=== PATIENT | male | born 1975 | race Caucasian/White ===

== ENCOUNTER 2019-06-05 19:34 | Outpatient (REF) | payer SELFPAY ==
[2019-06-05 20:16] LABS: Estmated Average Glucose 266; Hemoglobin A1C 10.9 % (4.0-6.0)
[2019-06-05 20:19] LABS: Alanine Aminotransferase 35 U/L (0-41); Albumin Level 4.6 g/dL (3.5-5.2); Alkaline Phosphatase 59 IU/L (40-130); Chloride 99 mmol/L (98-107); Potassium 4.4 mmol/L (3.5-5.1); Sodium 139 mmol/L (136-145)
[2019-06-05 21:09] LABS: Anion Gap 20.4 (5-19); Blood Urea Nitrogen 10 mg/dL (6-20); Calcium 9.8 mg/Dl (8.6-10.0); Carbon Dioxide 24 mmol/L (22-29); Globulin 2.8 g/dL (1.3-4.6); Glomerular Filtration Rate 91.7 mL/min (90-130); Glucose 174 mg/dL (74-109); Total Bilirubin 0.3 mg/dL (0.15-1.2); Total Protein 7.4 g/dL (6.6-8.7)
[2019-06-05 21:16] LABS: Aspartate Amino Transferase 30 U/L (0-40)
== END 2019-06-05 19:35 | disposition home or self-care (01) ==
LOC: LAB 19:34
PROVIDERS: Family Provider General Practice; PCP General Practice; Visit Provider Orthopaedic Surgery Foot and Ankle Surgery
DX: Z01.89 Encounter for other specified special examinations (principal)
CPT/HCPCS: 80053; 83036; 85025

== ENCOUNTER 2019-06-19 17:39 | Outpatient (REF) | payer SELFPAY ==
[2019-06-19 18:09] LABS: Chol HDL Ratio 6.25 mg/dL (1.0-5.00); Cholesterol 150 mg/dL (0-200); HDL Cholesterol 24 mg/dL (60-100); LDL Cholesterol Calculated 62 mg/dL (50-129); LDL HDL Ratio 2.58 RATIO (0.00-3.22); Triglycerides 318 mg/dL (0-150)
== END 2019-06-19 17:40 | disposition home or self-care (01) ==
LOC: LAB 17:39
PROVIDERS: Family Provider General Practice; PCP General Practice
DX: Z01.89 Encounter for other specified special examinations (principal)
CPT/HCPCS: 80061

== ENCOUNTER 2019-06-29 19:12 | Emergency (ER) | payer SELFPAY ==
[2019-06-29] VITALS (35 sets, daily range): BP systolic 104–120; BP diastolic 57–66; PULSE 93–114; RESP 12–22; TEMP 36.8; O2SAT 88–98; BMI 30.3
--- NOTE | 2019-06-29 19:38 | ED_ITS ---
Entered by Liliana Clark, acting as scribe for Surya Coreas DO Jun 29, 2019 19:12 HPI - Seizure General: Chief Complaint: Seizure Stated Complaint: POSSIBLE SEIZURE Time Seen by Provider: 06/29/19 19:38 Source: patient and family Mode of arrival: ambulatory History of Present Illness: HPI Narrative: 43 y/o male presents to the ED with complaint of possible seizure/syncope. states he bent over by the couch because he felt dizzy. Pt remembers falling and hitting his head. A bystander said it looked like he started convulsing while he was passed out. Pt states he woke up to his shaking him awake. Upon waking, pt felt nauseated, sweaty and had a persistent ANDRADE. Pt is a diabetic and states he has not checked his sugar since this event occurred. MD complaint: possible seizure and syncope Onset (ago): hour(s) Description of Episode: loss of consciousness -: second(s) Witnessed: Yes - by Bystander Trauma: No Place: Home Associated symptoms: Deny chest pain, chills, confusion or fever(s) Review of Systems Const: Denies: fever or chills Eyes: Denies: change in vision or blurry vision ENMT: Denies: painful swallowing, swelling of lips/tongue, bleeding gums or dental pain Card: Denies: chest pain, palpitations, irregular heart rhythm, edema, swelling of feet/ankles, shortness of breath on exertion or shortness of breath when lying down Resp: Denies: shortness of breath, productive cough, non-productive cough or wheezing GI: Denies: abdominal pain, nausea, vomiting, rectal pain, blood in stool or black tarry stool : Denies: difficulty urinating or blood in urine Musc: Denies: neck pain, back pain, redness or joint warmth Skin/Breast: Denies: rash, itching or redness Neuro: Reports: headache and seizure-like activity; Denies: dizziness, vertigo or confusion Psych: Denies: anxiety PFSH ED PFSH: Statuses (acute, chronic, etc) shown below reflect problem list status as previously entered and may not be historically accurate Social History Smoking and tobacco status: current every day smoker Physical Exam Const: GENERAL APPEARANCE: well developed ORIENTATION/CONSCIOUSNESS: Yes oriented to person, Yes oriented to place and Yes oriented to time HENMT: COMMON NORMALS: normocephalic, external ears normal and external nose normal HEAD & SCALP: normocephalic; no scalp tenderness FACE & SINUS: normal facial exam NOSE: external nose normal and no nasal discharge EXTERNAL EAR: Yes external ears normal MOUTH: tongue normal Eye: COMMON NORMALS: PERRL, EOMs intact bilaterally and conjunctivae normal EYELID: eyelids normal CONJUNCTIVA: Yes conjunctivae normal PUPIL: Yes PERRL Neck/C-Spine: COMMON NORMALS: full ROM GENERAL: No tracheal deviation CERVICAL SPINE: Yes normal cervical lordosis and No cervical spine tenderness Chest: COMMONS NORMALS: inspection of chest normal CHEST: No tenderness Resp: COMMON NORMALS: clear to auscultation bilaterally EFFORT & INSPECTION: No tachypneic, No respiratory distress, No retractions, No uses accessory muscles and No tracheal deviation AUSCULTATION: clear to auscultation bilaterally, no rhonchi, no wheezes and lung sounds not diminished Cardio: COMMON NORMALS: regular rate and regular rhythm RATE: regular rate RHYTHM: regular rhythm HEART SOUNDS: no murmurs PERIPHERAL PULSES: radial pulses present GI: INSPECTION: No abdominal distension AUSCULTATION: No hyperactive bowel sounds and No hypoactive bowel sounds PALPATION: No guarding and No rigid PERCUSSION: no dullness to percussion and no tympanic to percussion Neuro: SENSORIUM/ORIENTATION: Yes oriented to person, Yes oriented to place and Yes oriented to time Psych: COMMON NORMALS: mental status grossly normal Skin: COMMON NORMALS: no rashes or lesions noted GENERAL SKIN EXAM: no rashes or lesions noted Course ED course: 43-year-old male who had a brief episode of syncope at home. He was squatting by a couch. He may or may not have had a clonic movement striking his head. His head CT is negative. His chest x-ray is negative. His troponins are negative. His d-dimer is negative. He was mildly hypoxic while sleeping and was briefly placed on oxygen, but passed a walk study never falling below 96% on room air. His EKG showed no acute ST changes. Drug screen was negative. No cause for the syncope identified. I doubt this is a seizure. There was no prolonged postictal phase, no prolonged convulsion, no prolonged rigidity. Vital Signs: Vital signs: Vital Signs Temperature 98.3 F 06/29/19 19:32 Pulse Rate 100 06/29/19 23:06 Respiratory Rate 16 06/29/19 23:06 Blood Pressure 114/66 06/29/19 23:06 Pulse Oximetry 93 06/29/19 23:06 MDM - Seizure Lab Data: Labs: Lab Results 06/29/19 06/29/19 06/29/19 Range/Units 19:52 19:52 19:52 WBC 10.6 H (4.0-10.0) 10^3/ uL RBC 5.31 H (4.1-5.3) 10^6/u L Hgb 15.2 (11.7-16.6) g/dL Hct 46.1 (42.0-52.0) % MCV 86.8 (80-94) fL MCH 28.6 (28.0-34.0) pg MCHC 33.0 (30.0-36.0) g/dL RDW 13.2 (12.1-15.1) % Plt Count 228 (130-400) 10^3/c mm MPV 11.2 H (7.4-10.4) fL Neut % (Auto) 68.2 % Lymph % (Auto) 21.7 % Clarke % (Auto) 7.8 % Eos % (Auto) 1.5 % Baso % (Auto) 0.4 % Neut # (Auto) 7.3 (1.8-7.7) 10^3/u L Lymph # (Auto) 2.3 (0.8-4.8) 10^3/u L Clarke # (Auto) 0.8 (0.2-0.9) 10^3/u L Eos # (Auto) 0.2 (0.0-0.8) 10^3/u L Baso # (Auto) 0.0 (0.0-0.1) 10^3/u L Nucleated RBC % (a uto) 0 % Nucleated RBCs # 0.0 /100WBC D-Dimer (0-0.59) ug/mIFE U Sodium 138 (136-145) mmol/L Potassium 4.3 (3.5-5.1) mmol/L Chloride 96 L (98-107) mmol/L Carbon Dioxide 22 (22-29) mmol/L Anion Gap 24.3 H (5-19) BUN 19 (6-20) mg/dL Creatinine 1.8 H (0.7-1.2) mg/dL GFR Calculation 41.2 L (90-130) mL/min Glucose 271 H (74-109) mg/dL POC Glucose (70-110) mg/dL Calcium 11.0 H (8.5-10.5) mg/dL Phosphorus 5.5 H (2.5-4.5) mg/dL Magnesium 1.6 L (1.7-2.3) mg/dL Total Bilirubin 0.3 (0.15-1.2) mg/dL AST 35 (0-40) U/L ALT 57 H (0-41) U/L Alkaline Phosphata se 63 (40-130) IU/L Troponin T Baselin e 12 (0-15) ng/mL Troponin T 120 Min erica (0-15) ng/mL Delta Troponin T (0-10) ABS# Total Protein 8.1 (6.6-8.7) g/dL Albumin 5.1 (3.5-5.2) g/dL Globulin 3.0 (1.3-4.6) g/dL Urine Color (Yellow) Urine Appearance (CLEAR) Urine pH (5-7) Ur Specific Gravit y (1.005-1.030) Urine Protein (Negative) Urine Glucose (UA) (Normal) Urine Ketones (Negative) Urine Occult Blood (Negative) Urine Nitrate (Negative) Urine Bilirubin (NEGATIVE) Urine Urobilinogen (Negative) mg/dL Ur Leukocyte Lis ase (Negative) Urine RBC (0-2) /hpf Urine WBC (0-5) /hpf Ur Squamous Epith Cells (0-5) Urine Bacteria (NONE) Hyaline Casts Urine Mucus Urine Opiates Scre en (Negative) ng/mL Ur Barbiturates Sc reen (Negative) ng/mL Ur Phencyclidine S crn (Negative) ng/mL Ur Amphetamines Sc reen (Negative) ng/mL U Benzodiazepines Scrn (Negative) ng/mL Urine Cocaine Scre en (Negative) ng/mL U Marijuana (THC) Screen (Negative) ng/mL Ethyl Alcohol 10 (0-10) mg/dL 06/29/19 06/29/19 06/29/19 Range/Units 19:52 19:57 20:35 WBC (4.0-10.0) 10^3/ uL RBC (4.1-5.3) 10^6/u L Hgb (11.7-16.6) g/dL Hct (42.0-52.0) % MCV (80-94) fL MCH (28.0-34.0) pg MCHC (30.0-36.0) g/dL RDW (12.1-15.1) % Plt Count (130-400) 10^3/c mm MPV (7.4-10.4) fL Neut % (Auto) % Lymph % (Auto) % Clarke % (Auto) % Eos % (Auto) % Baso % (Auto) % Neut # (Auto) (1.8-7.7) 10^3/u L Lymph # (Auto) (0.8-4.8) 10^3/u L Clarke # (Auto) (0.2-0.9) 10^3/u L Eos # (Auto) (0.0-0.8) 10^3/u L Baso # (Auto) (0.0-0.1) 10^3/u L Nucleated RBC % (a uto) % Nucleated RBCs # /100WBC D-Dimer 0.39 (0-0.59) ug/mIFE U Sodium (136-145) mmol/L Potassium (3.5-5.1) mmol/L Chloride (98-107) mmol/L Carbon Dioxide (22-29) mmol/L Anion Gap (5-19) BUN (6-20) mg/dL Creatinine (0.7-1.2) mg/dL GFR Calculation (90-130) mL/min Glucose (74-109) mg/dL POC Glucose 252 (70-110) mg/dL Calcium (8.5-10.5) mg/dL Phosphorus (2.5-4.5) mg/dL Magnesium (1.7-2.3) mg/dL Total Bilirubin (0.15-1.2) mg/dL AST (0-40) U/L ALT (0-41) U/L Alkaline Phosphata se (40-130) IU/L Troponin T Baselin e (0-15) ng/mL Troponin T 120 Min erica (0-15) ng/mL Delta Troponin T (0-10) ABS# Total Protein (6.6-8.7) g/dL Albumin (3.5-5.2) g/dL Globulin (1.3-4.6) g/dL Urine Color Yellow (Yellow) Urine Appearance Clear (CLEAR) Urine pH 5 (5-7) Ur Specific Gravit y 1.020 (1.005-1.030) Urine Protein Trace (Negative) Urine Glucose (UA) 2+ (Normal) Urine Ketones Negative (Negative) Urine Occult Blood Neg (Negative) Urine Nitrate Negative (Negative) Urine Bilirubin 1+ H (NEGATIVE) Urine Urobilinogen 1 H (Negative) mg/dL Ur Leukocyte Lis ase Negative (Negative) Urine RBC Rare (0-2) /hpf Urine WBC 0-4 H (0-5) /hpf Ur Squamous Epith Cells 0-4 H (0-5) Urine Bacteria 1+ H (NONE) Hyaline Casts 0-4 H Urine Mucus 1+ Urine Opiates Scre en (Negative) ng/mL Ur Barbiturates Sc reen (Negative) ng/mL Ur Phencyclidine S crn (Negative) ng/mL Ur Amphetamines Sc reen (Negative) ng/mL U Benzodiazepines Scrn (Negative) ng/mL Urine Cocaine Scre en (Negative) ng/mL U Marijuana (THC) Screen (Negative) ng/mL Ethyl Alcohol (0-10) mg/dL 06/29/19 06/29/19 Range/Units 20:35 21:58 WBC (4.0-10.0) 10^3/ uL RBC (4.1-5.3) 10^6/u L Hgb (11.7-16.6) g/dL Hct (42.0-52.0) % MCV (80-94) fL MCH (28.0-34.0) pg MCHC (30.0-36.0) g/dL RDW (12.1-15.1) % Plt Count (130-400) 10^3/c mm MPV (7.4-10.4) fL Neut % (Auto) % Lymph % (Auto) % Clarke % (Auto) % Eos % (Auto) % Baso % (Auto) % Neut # (Auto) (1.8-7.7) 10^3/u L Lymph # (Auto) (0.8-4.8) 10^3/u L Clarke # (Auto) (0.2-0.9) 10^3/u L Eos # (Auto) (0.0-0.8) 10^3/u L Baso # (Auto) (0.0-0.1) 10^3/u L Nucleated RBC % (a uto) % Nucleated RBCs # /100WBC D-Dimer (0-0.59) ug/mIFE U Sodium (136-145) mmol/L Potassium (3.5-5.1) mmol/L Chloride (98-107) mmol/L Carbon Dioxide (22-29) mmol/L Anion Gap (5-19) BUN (6-20) mg/dL Creatinine (0.7-1.2) mg/dL GFR Calculation (90-130) mL/min Glucose (74-109) mg/dL POC Glucose (70-110) mg/dL Calcium (8.5-10.5) mg/dL Phosphorus (2.5-4.5) mg/dL Magnesium (1.7-2.3) mg/dL Total Bilirubin (0.15-1.2) mg/dL AST (0-40) U/L ALT (0-41) U/L Alkaline Phosphata se (40-130) IU/L Troponin T Baselin e (0-15) ng/mL Troponin T 120 Min erica 8.77 (0-15) ng/mL Delta Troponin T -3.23 L (0-10) ABS# Total Protein (6.6-8.7) g/dL Albumin (3.5-5.2) g/dL Globulin (1.3-4.6) g/dL Urine Color (Yellow) Urine Appearance (CLEAR) Urine pH (5-7) Ur Specific Gravit y (1.005-1.030) Urine Protein (Negative) Urine Glucose (UA) (Normal) Urine Ketones (Negative) Urine Occult Blood (Negative) Urine Nitrate (Negative) Urine Bilirubin (NEGATIVE) Urine Urobilinogen (Negative) mg/dL Ur Leukocyte Lis ase (Negative) Urine RBC (0-2) /hpf Urine WBC (0-5) /hpf Ur Squamous Epith Cells (0-5) Urine Bacteria (NONE) Hyaline Casts Urine Mucus Urine Opiates Scre en Negative (Negative) ng/mL Ur Barbiturates Sc reen Negative (Negative) ng/mL Ur Phencyclidine S crn Negative (Negative) ng/mL Ur Amphetamines Sc reen Negative (Negative) ng/mL U Benzodiazepines Scrn Negative (Negative) ng/mL Urine Cocaine Scre en Negative (Negative) ng/mL U Marijuana (THC) Screen Negative (Negative) ng/mL Ethyl Alcohol (0-10) mg/dL Discharge Plan Discharge Patient Disposition: Home, Self-Care Clinical Impression: Syncope Qualifiers: Syncope type: unspecified Qualified Code(s): R55 - Syncope and collapse Condition: Stable Prescriptions: No Action gabapentin 600 mg Tablet 1,200 mg PO BID RF: 0 Zyrtec 10 mg Tablet 10 mg PO DAILY RF: 0 glipizide 10 mg Tablet Extended Release 24hr 10 mg PO BID RF: 0 Mobic 15 mg Tablet 15 mg PO DAILY RF: 0 isosorbide mononitrate 30 mg Tablet Extended Release 24 Hr 30 mg PO DAILY RF: 0 omeprazole 40 mg Capsule,Delayed Release(Dr/Ec) 40 mg PO DAILY RF: 0 Aspir-Low 81 mg Tablet,Delayed Release (Dr/Ec) 81 mg PO DAILY RF: 0 simvastatin 40 mg Tablet 40 mg PO DAILY RF: 0 metformin 1,000 mg Tablet 1,000 mg PO BID RF: 0 lisinopril 10 mg Tablet 10 mg PO DAILY RF: 0 metoprolol tartrate 50 mg Tablet 50 mg PO BID RF: 0 hydrochlorothiazide 25 mg Tablet 25 mg PO DAILY RF: 0 Cymbalta 60 mg Capsule,Delayed Release(Dr/Ec) 120 mg PO BEDTIME RF: 0 Januvia 100 mg Tablet 100 mg PO DAILY RF: 0 melatonin 10 mg Tablet 10 mg PO BEDTIME RF: 0 Bydureon 2 mg/0.65 mL Pen Injector 2 mg SUBCUT Q7D RF: 0 Imitrex See Rx Instructions .ROUTE .COMPLEX RF: 0 Discharge Orders: Discharge Order (Routine); Ordered 06/29/19 Ordered By: Surya Coreas Referrals: Nikita Felton MD [Primary Care Provider] - Discharge Diet: Diabetic Discharge Activity: Resume usual activity Patient Instructions: Syncope (ED) Activity Restrictions/Additional Instructions: Return for repeated episodes of syncope or passing out, chest discomfort, significant shortness of breath, mental status changes, other concerning symptoms. Stop your Januvia for now, as it may be making your kidney function worse. You should have your kidney function retested in 4 to 5 days. Discharge Date/Time: 06/29/19 22:53 Coding Level of Care Code ED Plate Mounter for Wendy Weeks The documentation recorded by the sumanibEduardo morel Ashley, accurately reflects the service I personally performed and the decisions made by , Surya Coreas DO Jun 29, 2019 19:12
--- NOTE | 2019-06-29 19:47 | CTR_ITS ---
PROCEDURE INFORMATION: Exam: CT Head Without Contrast Exam date and time: 06/29/2019 7:53 PM Age: 43 years old Clinical indication: Pain; Headache not specified; Patient HX: Possible seizure; Additional info: Russell TECHNIQUE: Imaging protocol: Computed tomography of the head without contrast. Total DLP: 877.18 mGy-cm Radiation optimization: All CT scans at this facility use at least one of these dose optimization techniques: automated exposure control; mA and/or kV adjustment per patient size (includes targeted exams where dose is matched to clinical indication); or iterative reconstruction. COMPARISON: No relevant prior studies available. FINDINGS: Brain: Normal. No hemorrhage. Unremarkable white matter. No mass effect. Ventricles: Normal. No ventriculomegaly. Bones/joints: Unremarkable. No acute fracture. Sinuses: Visualized sinuses are unremarkable. No fluid levels. Mastoid air cells: Visualized mastoid air cells are well aerated. Soft tissues: Unremarkable. CT/CT head wo con* [id number] IMPRESSION: No acute intracranial abnormality. Radiation Dose CTDIVOL = (mGy): DLP = 877.18 (mGy-cm)
--- NOTE | 2019-06-29 19:47 | XRR_ITS ---
PROCEDURE INFORMATION: Exam: XR Chest, 1 View Exam date and time: 06/29/2019 7:49 PM Age: 43 years old Clinical indication: Chest pain; Patient HX: Seizure; Additional info: Russell TECHNIQUE: Imaging protocol: XR of the chest Views: 1 view. COMPARISON: CR Chest 1 [place] [id number] 12/21/2018 9:30 PM FINDINGS: Lungs: Unremarkable. No consolidation. Unchanged non-specific elevation right hemidiaphragm. Unchanged calcified granulomas. Pleural space: Unremarkable. No pleural effusion. No pneumothorax. Heart/Mediastinum: Unremarkable. No cardiomegaly. Bones/joints: No acute abnormality. XR/XR chest 1V portable [id number] IMPRESSION: No acute findings.
[2019-06-29] MEDS: sodium chloride 0.9% 1,000 ML 999 ML IV (20:00)
[2019-06-29 20:01] LABS: Basophils % 0.4 %; Eosinophils # 0.2 10^3/uL (0.0-0.8); Eosinophils % 1.5 %; Hematocrit 46.1 % (42.0-52.0); Hemoglobin 15.2 g/dL (11.7-16.6); Lymphocytes # 2.3 10^3/uL (0.8-4.8); Lymphocytes % 21.7 %; Mean Corpuscular Hemoglobin 28.6 pg (28.0-34.0); Mean Corpuscular Volume 86.8 fL (80-94); Mean Platelet Volume 11.2 fL (7.4-10.4); Monocytes # 0.8 10^3/uL (0.2-0.9); Monocytes % 7.8 %; Neutrophils # 7.3 10^3/uL (1.8-7.7); Neutrophils % 68.2 %; Nucleated Red Blood Cells % 0 %; Platelet Count 228 10^3/cmm (130-400); Red Blood Count 5.31 10^6/uL (4.1-5.3); Red Cell Distribution Width 13.2 % (12.1-15.1); White Blood Count 10.6 10^3/uL (4.0-10.0)
[2019-06-29 20:03] LABS: Glucose Point of Care 252 mg/dL (70-110)
[2019-06-29 20:17] LABS: Alanine Aminotransferase 57 U/L (0-41); Albumin Level 5.1 g/dL (3.5-5.2); Alkaline Phosphatase 63 IU/L (40-130); Anion Gap 24.3 (5-19); Aspartate Amino Transferase 35 U/L (0-40); Blood Urea Nitrogen 19 mg/dL (6-20); Carbon Dioxide 22 mmol/L (22-29); Chloride 96 mmol/L (98-107); Glomerular Filtration Rate 41.2 mL/min (90-130); Glucose 271 mg/dL (74-109); Magnesium 1.6 mg/dL (1.7-2.3); Phosphorus 5.5 mg/dL (2.5-4.5); Potassium 4.3 mmol/L (3.5-5.1); Sodium 138 mmol/L (136-145); Total Bilirubin 0.3 mg/dL (0.15-1.2); Total Protein 8.1 g/dL (6.6-8.7)
[2019-06-29 20:20] LABS: Troponin(5th) Baseline 12 ng/mL (0-15)
[2019-06-29 20:28] LABS: Alcohol Level 10 mg/dL (0-10)
[2019-06-29 20:54] LABS: D Dimer 0.39 ug/mIFEU (0-0.59)
[2019-06-29 21:18] LABS: Amphetamines Screen Urine Negative (Negative); Barbiturates Screen Urine Negative (Negative); Benzodiazepines Screen Urine Negative (Negative); Cocaine Screen Urine Negative (Negative); Opiate Screen Urine Negative (Negative); PCP Screen Urine Negative (Negative)
[2019-06-29 21:19] LABS: THC Screen Urine Negative (Negative)
[2019-06-29 21:30] LABS: Add Urine Microscopic? YES; Bacteria Urine 1+; Bilirubin Urine 1+ (NEGATIVE); Blood Urine Neg (Negative); Glucose Urine UA 2+ (Normal); Ketones Urine Negative (Negative); Leukocyte Esterase Urine Negative (Negative); Nitrate Urine Negative (Negative); Protein Urine Trace (Negative); RBC Urine RARE /hpf (0-2); Squamous Epithelial Cell Urine 0-4 (0-5); Urine Appearance Clear (CLEAR); Urine Color Yellow (Yellow); Urobilinogen Urine 1 mg/dL (Negative); WBC Urine 0-4 /hpf (0-5); pH Urine 5 (5-7)
[2019-06-29 21:31] LABS: Hyaline Casts Urine 0-4; Mucus Urine 1+
--- NOTE | 2019-06-29 21:49 | ECG_ITS ---
Measurements Intervals Gore Rate: 105 P: 52 PA: 146 QRS: -35 QRSD: 98 T: 67 QT: 312 QTc: 413 SINUS TACHYCARDIA LEFT AXIS DEVIATION [QRS AXIS < -30] Compared to ECG 12/21/2018 03:40:39 Sinus rhythm no longer present Electronically Signed On 06-30-2019 21:04:29 TREE GIRDLER by Esme Cormier M.D. [email or web address]
[2019-06-29 22:39] LABS: Troponin 5 2HR 8.77 ng/mL (0-15)
[2019-06-29 22:44] LABS: Troponin 5 2HR Delta -3.23 ABS# (0-10)
== END 2019-06-29 22:53 | disposition home or self-care (01) ==
PROVIDERS: Emergency Provider Emergency Medicine; Family Provider General Practice; PCP General Practice
DX: R55 Syncope and collapse (principal); Z79.84 Long term (current) use of oral hypoglycemic drugs; Z79.82 Long term (current) use of aspirin; F17.210 Nicotine dependence, cigarettes, uncomplicated
CPT/HCPCS: 36416; 70450; 71045; 80053; 80307; 81001; 82962; 83735; 84100; 84484; 85025; 85378; 93005; 96360; 99284; J7030

== ENCOUNTER 2019-08-20 07:59 | Emergency (ER) | payer SELFPAY ==
[2019-08-20 08:04] VITALS: BMI 30.9
--- NOTE | 2019-08-20 08:05 | ED_ITS ---
Entered by Radha Estrada, acting as scribe for Sterling Cruz DO HPI - Fever General: Chief Complaint: Shortness of Breath/Dyspnea Stated Complaint: coughing, fever ,SOB Time Seen by Provider: 08/20/19 08:05 Source: patient Mode of arrival: ambulatory Limitations: no limitations History of Present Illness: HPI Narrative: 43 yo male presents with fever, cough and congestion. pt states this started a few days ago. pt states he has had blood with vomiting. pt denies any other symptoms at this time. MD elicited complaint: fever Onset (ago): day(s) (yesterday) Exacerbating factors: exertion Relieving factors: nothing Associated symptoms: Reports chills, diarrhea, night sweats, short of breath and other (coughing up blood) Treatments prior to arrival fever: none Review of Systems General: Reports: 10 or more systems reviewed and unremarkable except in HPI and below Const: Reports: fever, chills, body aches, fatigue and night sweats Resp: Reports: shortness of breath and coughing up blood (Patient having small streaks and spots of blood in the sputum no large amounts of blood.) GI: Reports: diarrhea Musc: Denies: joint warmth PFSH ED PFSH: Social History Smoking and tobacco status: current every day smoker Physical Exam Const: COMMON NORMALS: average body habitus, oriented x3 and alert GENERAL APPEARANCE: cooperative, comfortable, well kempt and well developed NUTRITIONAL APPEARANCE: obese ORIENTATION/CONSCIOUSNESS: Yes awake, Yes oriented to person and Yes oriented to place HENMT: COMMON NORMALS: normocephalic, head/scalp atraumatic, EAC's normal, TM's normal bilaterally, external nose normal, moist oral mucous membranes and oropharynx normal HEAD & SCALP: normocephalic and atraumatic NOSE: external nose normal EXTERNAL AUDITORY CANAL: EAC's normal TYMPANIC MEMBRANE: TM's normal bilaterally MOUTH: oral and palatal mucosa normal, lip normal and tongue normal THROAT: posterior oropharynx normal and tonsils normal Eye: COMMON NORMALS: PERRL, EOMs intact bilaterally, conjunctivae normal and no scleral icterus CONJUNCTIVA: Yes conjunctivae normal PUPIL: Yes PERRL Neck/C-Spine: COMMON NORMALS: full ROM, no lymphadenopathy, supple, no meningeal signs and thyroid normal THYROID: thyroid normal and asymmetrical Lymph: LYMPHATIC: no lymphadenopathy noted Cardio: RATE: tachycardic HEART SOUNDS: no murmurs GI: COMMON NORMALS: normal to inspection, nondistended, normoactive bowel sounds, soft to palpation and no hepatosplenomegaly PALPATION: Yes soft and Yes no hepatosplenomegaly : COMMON NORMALS: Yes no CVA tenderness BLADDER/KIDNEY EXAM: Yes no CVA tenderness Back/Pelvis: COMMON NORMALS: no CVA tenderness LUMBAR SPINE/LOWER BACK: Yes normal to inspection Extremity: COMMON NORMALS: no clubbing, cyanosis or edema, no calf tenderness and no pedal edema Neuro: COMMON NORMALS: oriented x3 SENSORIUM/ORIENTATION: Yes alert, Yes oriented to person and Yes oriented to place MENINGEAL SIGNS: Yes no meningeal signs Psych: APPEARANCE: Yes well kempt Skin: COMMON NORMALS: no rashes or lesions noted and skin turgor normal GENERAL SKIN EXAM: no rashes or lesions noted and turgor normal Course Vital Signs: Vital signs: Vital Signs Temperature 98.9 F 08/20/19 08:07 Pulse Rate 78 08/20/19 09:09 Respiratory Rate 16 08/20/19 09:09 Blood Pressure 133/90 08/20/19 09:09 Pulse Oximetry 95 08/20/19 09:09 MDM - Fever MDM Narrative: Medical decision making narrative: Patient sats remained good during the visit. He was initially a little bit tachycardic quite anxious when he first arrived that resolved. He is afebrile. He is not tachypneic or hypoxic. He did relate that he was previously diagnosed with a pulmonary embolism in the past but states he is never had any known DVTs. Additionally he denies ever being on any anticoagulants. He tells me that after [place] was evaluated [place] he was discharged home on a baby aspirin daily and no other anticoagulants. It would seem based on his history that may have evaluated him for a PE but he was did not have one he is not currently listing any anticoagulants in his medication list. He is well- appearing at this time. We will go ahead and discharge him home and asked the patient to self quarantine for the next 14 days if he has any change of symptoms she should return. He should specifically watch for increasing difficulty breathing worsening of cough and fever. Lab Data: Labs: Lab Results 08/20/19 08/20/19 08/20/19 Range/Units 08:22 08:22 08:28 WBC 11.6 H (4.0-10.0) 10^3/ uL RBC 5.15 (4.1-5.3) 10^6/u L Hgb 15.5 (11.7-16.6) g/dL Hct 46.1 (42.0-52.0) % MCV 89.5 (80-94) fL MCH 30.1 (28.0-34.0) pg MCHC 33.6 (30.0-36.0) g/dL RDW 12.8 (12.1-15.1) % Plt Count 190 (130-400) 10^3/c mm MPV 11.4 H (7.4-10.4) fL Neut % (Auto) 62.6 % Lymph % (Auto) 22.5 % Granite % (Auto) 10.7 % Eos % (Auto) 3.2 % Baso % (Auto) 0.8 % Neut # (Auto) 7.2 (1.8-7.7) 10^3/u L Lymph # (Auto) 2.6 (0.8-4.8) 10^3/u L Granite # (Auto) 1.2 H (0.2-0.9) 10^3/u L Eos # (Auto) 0.4 (0.0-0.8) 10^3/u L Baso # (Auto) 0.1 (0.0-0.1) 10^3/u L Nucleated RBC % (a uto) 0 % Nucleated RBCs # 0.0 /100WBC Sodium 131 L (136-145) mmol/L Potassium 4.2 (3.5-5.1) mmol/L Chloride 94 L (98-107) mmol/L Carbon Dioxide 20 L (22-29) mmol/L Anion Gap 21.2 H (5-19) BUN 14 (6-20) mg/dL Creatinine 0.8 (0.7-1.2) mg/dL GFR Calculation 105.0 (90-130) mL/min Glucose 350 H (65-115) mg/dL Calculated Osmolal ity 282 L (285-295) mOsm/k g Calcium 10.5 (8.5-10.5) mg/dL Total Bilirubin 0.3 (0.15-1.2) mg/dL AST 33 (0-40) U/L ALT 43 H (0-41) U/L Alkaline Phosphata se 74 (40-130) IU/L Total Protein 7.4 (6.6-8.7) g/dL Albumin 4.3 (3.5-5.2) g/dL Globulin 3.1 (1.3-4.6) g/dL Influenza Type A A g Negative (Negative) POC Influenza B Ag Negative (Negative) Discharge Plan Discharge Patient Disposition: Home, Self-Care Clinical Impression: Bronchitis Condition: Stable Prescriptions: New albuterol sulfate 90 mcg/actuation HFA aerosol inhaler 2 inh INHALATION Q4H PRN (Reason: shortness of breath or wheezing) Qty: 18 RF: 0 No Action gabapentin 600 mg Tablet 1,200 mg PO BID RF: 0 Zyrtec 10 mg Tablet 10 mg PO DAILY RF: 0 glipizide 10 mg Tablet Extended Release 24hr 10 mg PO BID RF: 0 Mobic 15 mg Tablet 15 mg PO DAILY RF: 0 isosorbide mononitrate 30 mg Tablet Extended Release 24 Hr 30 mg PO DAILY RF: 0 omeprazole 40 mg Capsule,Delayed Release(Dr/Ec) 40 mg PO DAILY RF: 0 Aspir-Low 81 mg Tablet,Delayed Release (Dr/Ec) 81 mg PO DAILY RF: 0 simvastatin 40 mg Tablet 40 mg PO DAILY RF: 0 metformin 1,000 mg Tablet 1,000 mg PO BID RF: 0 lisinopril 10 mg Tablet 10 mg PO DAILY RF: 0 metoprolol tartrate 50 mg Tablet 50 mg PO BID RF: 0 hydrochlorothiazide 25 mg Tablet 25 mg PO DAILY RF: 0 Cymbalta 60 mg Capsule,Delayed Release(Dr/Ec) 120 mg PO BEDTIME RF: 0 Januvia 100 mg Tablet 100 mg PO DAILY RF: 0 melatonin 10 mg Tablet 10 mg PO BEDTIME RF: 0 Bydureon 2 mg/0.65 mL Pen Injector 2 mg SUBCUT Q7D RF: 0 Imitrex See Rx Instructions .ROUTE .COMPLEX RF: 0 Discharge Orders: Discharge Order (Routine); Ordered 08/20/19 Ordered By: Sterling Cruz Referrals: Nikita Felton MD [Primary Care Provider] - Discharge Diet: Usual diet Discharge Activity: Resume usual activity Activity Restrictions/Additional Instructions: Recommend that you self quarantine for 14 days. If you have worsening symptoms return to the emergency room watch for symptoms such as extreme shortness of breath fever and cough. Interventions: ED Discharge Assessment Last Done: 08/20/19 09:09 Discharge Date/Time: 08/20/19 09:10 Coding Level of Care Code ED .Net Architect for Chg Fwd Exam Comprehensive The documentation recorded by the Sean dennis Bridget Annette, accurately reflects the service I personally performed and the decisions made by Nancy anderson Curtis L, Aug 20, 2019 07:59
[2019-08-20 08:07] VITALS: BP 118/99; PULSE 123; RESP 18; TEMP 37.2; O2SAT 97
--- NOTE | 2019-08-20 08:12 | XR_ITS ---
WS: [id number] PORTABLE CHEST HISTORY: dyspnea/cough COMPARISON: 06/29/2019 Lungs are clear and well expanded. Very slight elevation of the RIGHT hemidiaphragm is stable. No ple ural effusion or pneumothorax. Cardiac size: Normal. Mediastinum/Aorta: Normal mediastinum. No osseous abnormality seen. XR/XR chest 1V portable [id number] IMPRESSION: Unremarkable portable chest.
[2019-08-20 08:29] LABS: Basophils # 0.1 10^3/uL (0.0-0.1); Basophils % 0.8 %; Eosinophils # 0.4 10^3/uL (0.0-0.8); Eosinophils % 3.2 %; Hematocrit 46.1 % (42.0-52.0); Hemoglobin 15.5 g/dL (11.7-16.6); Lymphocytes # 2.6 10^3/uL (0.8-4.8); Lymphocytes % 22.5 %; Mean Corpuscular HGB Conc 33.6 g/dL (30.0-36.0); Mean Corpuscular Hemoglobin 30.1 pg (28.0-34.0); Mean Corpuscular Volume 89.5 fL (80-94); Mean Platelet Volume 11.4 fL (7.4-10.4); Monocytes # 1.2 10^3/uL (0.2-0.9); Monocytes % 10.7 %; Neutrophils # 7.2 10^3/uL (1.8-7.7); Neutrophils % 62.6 %; Nucleated Red Blood Cells % 0 %; Platelet Count 190 10^3/cmm (130-400); Red Blood Count 5.15 10^6/uL (4.1-5.3); Red Cell Distribution Width 12.8 % (12.1-15.1); White Blood Count 11.6 10^3/uL (4.0-10.0)
[2019-08-20 08:46] LABS: Influenza A by IFA Negative (Negative); Influenza B by IFA Negative (Negative)
[2019-08-20 09:09] VITALS: BP 133/90; PULSE 78; RESP 16; O2SAT 95
[2019-08-20 09:10] LABS: Albumin Level 4.3 g/dL (3.5-5.2); Alkaline Phosphatase 74 IU/L (40-130); Anion Gap 21.2 (5-19); Blood Urea Nitrogen 14 mg/dL (6-20); Calcium 10.5 mg/dL (8.5-10.5); Carbon Dioxide 20 mmol/L (22-29); Chloride 94 mmol/L (98-107); Creatinine Clr Calc Pharmacy 150.9627; Globulin 3.1 g/dL (1.3-4.6); Glucose 350 mg/dL (65-115); Osmolality Calculated 282 mOsm/kg (285-295); Potassium 4.2 mmol/L (3.5-5.1); Sodium 131 mmol/L (136-145); Total Bilirubin 0.3 mg/dL (0.15-1.2); Total Protein 7.4 g/dL (6.6-8.7)
[2019-08-20 09:11] LABS: Alanine Aminotransferase 43 U/L (0-41); Aspartate Amino Transferase 33 U/L (0-40)
== END 2019-08-20 09:10 | disposition home or self-care (01) ==
PROVIDERS: Emergency Provider Family Medicine; Family Provider General Practice; PCP General Practice
DX: J40 Bronchitis, not specified as acute or chronic (principal); F17.200 Nicotine dependence, unspecified, uncomplicated
CPT/HCPCS: 12345; 36415; 71045; 80053; 85025; 87804; 99282; 99283

== ENCOUNTER 2020-12-28 15:53 | Emergency (ER) | payer MEDICAID, SELFPAY ==
[2020-12-28] VITALS (7 sets, daily range): BP systolic 66–99; BP diastolic 43–58; PULSE 87–101; RESP 17–18; TEMP 36.8; O2SAT 94–97; BMI 31.1
--- NOTE | 2020-12-28 16:06 | ECG_ITS ---
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
--- NOTE | 2020-12-28 16:06 | XR_ITS ---
WS: [id number] Portable AP upright chest, 12/28/2020 Clinical Data: syncopal episode Comparison: Portable chest, 08/20/2019. Findings: No nodules, masses or effusions are seen. The heart is normal. The pulmonary vascularity is not increased. No pneumonia or pneumothorax is seen. There are decorative items in the regions of lenard th areola. Monitor leads are on the chest wall. XR/XR chest 1V portable [id number] Impression: Negative chest.
--- NOTE | 2020-12-28 16:06 | ED_ITS ---
Documented by User: DANA Guerrero 12/29/20 07:08 HPI - Syncope General: Chief Complaint: Syncope Stated Complaint: SYNCOPAL, DIZZY Time Seen by Provider: 12/28/20 16:03 History of Present Illness: HPI narrative: Patient is a 45-year-old male comes to the ED via EMS with syncopal episode. Patient says he has had 2 other syncopal episodes in the past year and a half. Patient says that he just been outside on his riding lawnmower mowing his grass. He says he came in the house when he was walking he started feeling lightheaded and dizzy. He then leaned over and put his arm on the table to support himself and woke up on the floor. He has no idea how long he was out. He thinks he was possibly out for maybe an hour. He describes having a lightheaded and dizzy feeling since syncopal episode. He says this episode is just like his past syncopal episode and he says his blood pressure was low last time and he needed IV fluids to get his blood pressure back up. He has not had any recent change in medications and says that he took his normal blood pressure medications in the morning like usual. He did not eat anything this morning or before the syncopal episode. He denies any headache, head pain, neck pain, chest pain, shortness of breath, abdominal pain or nausea. His blood sugar was checked and it was at 124. He complains of no other symptoms. Associated symptoms: Reports lightheadedness; Deny abdominal pain, chest pain, fever(s), headache(s) or nausea Review of Systems Const: Denies: fever(s), chills or fatigue Eyes: Denies: change in vision or eye discomfort ENMT: Denies: throat pain, odynophagia, nasal discharge or nasal congestion Card: Reports: lightheadedness and syncope; Denies: chest pain, palpitations, edema, swelling of feet/ankles, dyspnea on exertion or orthopnea Resp: Denies: dyspnea, productive cough or non-productive cough GI: Denies: abdominal pain, nausea, vomiting, diarrhea, constipation or jw tochezia : Denies: flank pain, difficulty urinating, dysuria or hematuria Musc: Denies: neck pain, back pain or extremity swelling Skin/Breast: Denies: rash or new lesions Neuro: Reports: dizziness; Denies: headache(s), numbness in extremities or weakness in extremities PFSH ED PFSH: Social History Smoking and tobacco status: current every day smoker Physical Exam Const: COMMON NORMALS: no acute distress, patient oriented x3 and alert GENERAL APPEARANCE: cooperative and comfortable HENMT: COMMON NORMALS: normocephalic and atraumatic HEAD & SCALP: n ormocephalic and atraumatic; no Low's sign and no raccoon eyes MOUTH: Normal oral and palatal mucosa present THROAT: posterior oropharynx normal and uvula midline Eye: COMMON NORMALS: Equal, round and reactive pupils present, EOMs intact bi laterally and conjunctivae normal CONJUNCTIVA: Yes conjunctivae normal PUPIL: Yes Equal, round and reactive pupils present Neck/C-Spine: COMMON NORMALS: supple GENERAL: Yes normal visual inspection CERVICAL SPINE: Yes cervical ROM normal, No pain with cervical ROM, No Cervical spine tenderness, No Paracervical muscle tenderness and No Trapezius muscle tenderness Resp: COMMON NORMALS: normal respiratory effort, No retractions, No use of accessory muscles and clear to auscultation bilaterally AUSCULTATION: clear to auscultation bilaterally Cardio: COMMON NORMALS: regular rate, regular rhythm, S1 normal heart sound present, S2 normal heart sound present, No gallops present (Cardio), No clicks present (Cardio), No murmurs present (Cardio) and Peripheral pulses 2+ throughout RATE: regular rate RHYTHM: regular rhythm HEART SOUNDS: S1 normal heart sound present and S2 normal heart sound present PERIPHERAL PULSES: Peripheral pulses 2+ throughout GI: COMMON NORMALS: Normal to inspection, nondistended, normoactive bowel sounds present, Soft to palpation, non-tender and no masses PALPATION: Yes Soft to palpation : COMMON NORMALS: Yes no CVA tenderness BLADDER/KIDNEY EXAM: Yes no CVA tenderness Back/Pelvis: COMMON NORMALS: no CVA tenderness Extremity: COMMON NORMALS: normal to inspection Neuro: COMMON NORMALS: patient oriented x3, CN's II-XII intact bilaterally, moves all extremities, no focal motor deficits and no sensory deficits noted SENSORIUM/ORIENTATION: Yes alert SENSORY EXAM: Yes extremities (intact) MOTOR EXAM: 5/5 motor strength present throughout Skin: GENERAL SKIN EXAM: dry skin Course Vital Signs: Vital signs: Vital Signs Temperature 98.3 F 12/28/20 16:13 Pulse Rate 98 12/28/20 19:30 Respiratory Rate 18 12/28/20 19:30 Blood Pressure 90/57 12/28/20 19:30 Pulse Oximetry 97 12/28/20 19:30 MDM - Syncope Lab Data: Attestation: I reviewed the patient's lab results. Labs: Lab Results 12/28/20 12/28/20 12/28/20 Range/Units 16:17 16:17 16:17 WBC 13.0 H (4.0-10.0) 10^3/ uL RBC 5.57 H (4.1-5.3) 10^6/u L Hgb 16.5 (11.7-16.6) g/dL Hct 50.6 (42.0-52.0) % MCV 90.8 (80-94) fL MCH 29.6 (28.0-34.0) pg MCHC 32.6 (30.0-36.0) g/dL RDW 13.2 (12.1-15.1) % Plt Count 246 (130-400) 10^3/c mm MPV 11.4 H (7.4-10.4) fL Neut % (Auto) 62.2 % Lymph % (Auto) 25.4 % Montgomery % (Auto) 8.7 % Eos % (Auto) 2.8 % Baso % (Auto) 0.5 % Neut # (Auto) 8.08 H (1.8-7.7) 10^3/u L Lymph # (Auto) 3.3 (0.8-4.8) 10^3/u L Montgomery # (Auto) 1.1 H (0.2-0.9) 10^3/u L Eos # (Auto) 0.4 (0.0-0.8) 10^3/u L Baso # (Auto) 0.1 (0.0-0.1) 10^3/u L Nucleated RBC % (a uto) 0 % Nucleated RBCs # 0.0 /100WBC Sodium 141 (136-145) mmol/L Potassium 5.0 (3.5-5.1) mmol/L Chloride 101 (98-107) mmol/L Carbon Dioxide 26 (22-29) mmol/L Anion Gap 19.0 (5-19) BUN 15 (6-20) mg/dL Creatinine 1.8 H (0.7-1.2) mg/dL GFR Calculation 40.8 L (90-130) mL/min Glucose 112 (65-115) mg/dL Calculated Osmolal ity 294 (285-295) mOsm/k g Calcium 9.6 (8.5-10.5) mg/dL Total Bilirubin 0.4 (0.15-1.2) mg/dL AST 30 (0-40) U/L ALT 32 (0-41) U/L Alkaline Phosphata se 72 (40-130) IU/L Troponin T Baselin e 14 (0-15) ng/L Troponin T 120 Min ewiiaapaayp (0-15) ng/L Delta Troponin T (0-10) ABS# Total Protein 6.7 (6.6-8.7) g/dL Albumin 4.6 (3.5-5.2) g/dL Globulin 2.1 (1.3-4.6) g/dL 12/28/20 Range/Units 18:42 WBC (4.0-10.0) 10^3/ uL RBC (4.1-5.3) 10^6/u L Hgb (11.7-16.6) g/dL Hct (42.0-52.0) % MCV (80-94) fL MCH (28.0-34.0) pg MCHC (30.0-36.0) g/dL RDW (12.1-15.1) % Plt Count (130-400) 10^3/c mm MPV (7.4-10.4) fL Neut % (Auto) % Lymph % (Auto) % Montgomery % (Auto) % Eos % (Auto) % Baso % (Auto) % Neut # (Auto) (1.8-7.7) 10^3/u L Lymph # (Auto) (0.8-4.8) 10^3/u L [place] # (Auto) (0.2-0.9) 10^3/u L Eos # (Auto) (0.0-0.8) 10^3/u L Baso # (Auto) (0.0-0.1) 10^3/u L Nucleated RBC % (a uto) % Nucleated RBCs # /100WBC Sodium (136-145) mmol/L Potassium (3.5-5.1) mmol/L Chloride (98-107) mmol/L Carbon Dioxide (22-29) mmol/L Anion Gap (5-19) BUN (6-20) mg/dL Creatinine (0.7-1.2) mg/dL GFR Calculation (90-130) mL/min Glucose (65-115) mg/dL Calculated Osmolal ity (285-295) mOsm/k g Calcium (8.5-10.5) mg/dL Total Bilirubin (0.15-1.2) mg/dL AST (0-40) U/L ALT (0-41) U/L Alkaline Phosphata se (40-130) IU/L Troponin T Baselin e (0-15) ng/L Troponin T 120 Min ewiiaapaayp 9.43 (0-15) ng/L Delta Troponin T -4.57 L (0-10) ABS# Total Protein (6.6-8.7) g/dL Albumin (3.5-5.2) g/dL Globulin (1.3-4.6) g/dL Imaging Data^: CXR: Attestation: I personally reviewed and interpreted this imaging study as follows: Radiologist's impression: [address] [address] XRay Report Signed Patient: Panda Gonzalez Unit #: [id number] : 1975 Acct#:O [id number] Age/Sex: 45 / M ADM Date: 12/28/20 Loc: ER Room/Bed: Attending Dr: Ordering Provider/Ordering MD: Nikita Hopper Date of Service: 12/28/20 Procedure(s): XR chest 1V portable [id number] Accession Number(s): [id number] Report Number: [id number] WS: [id number] Portable AP upright chest, 12/28/2020 Clinical Data: syncopal episode Comparison: Portable chest, 08/20/2019. Findings: No nodules, masses or effusions are seen. The heart is normal. The pulmonary vascularity is not increased. No pneumonia or pneumothorax is seen. There are decorative items in the regions of both areola. Monitor leads are on the chest wall. XR/XR chest 1V portable [id number] Impression: Negative chest. Dictated By: Kirstin Avelar MD Signed By: Kirstin Avelar MD Signed Date/Time: 12/28/201628 DD/ 27 Discharge Plan Discharge Patient Disposition: Home Clinical Impression: Acute hypotension Episode of syncope Qualifiers: Syncope type: unspecified Qualified Code(s): R55 - Syncope and collapse Condition: Stable Prescriptions: No Action Humulin R Regular U-100 Insuln 100 unit/mL solution 60 unit SUBCUT BID RF: 0 rosuvastatin [Crestor] 40 mg tablet 40 mg PO DAILY RF: 0 azithromycin 250 mg tablet 250 mg PO DAILY 5 Days Qty: 6 RF: 0 gabapentin 600 mg Tablet 1,200 mg PO BID RF: 0 Zyrtec 10 mg Tablet 10 mg PO DAILY RF: 0 Mobic 15 mg Tablet 15 mg PO DAILY RF: 0 omeprazole 40 mg Capsule,Delayed Release(Dr/Ec) 40 mg PO DAILY RF: 0 Aspir-Low 81 mg Tablet,Delayed Release (Dr/Ec) 81 mg PO DAILY RF: 0 metformin 1,000 mg Tablet 1,000 mg PO BID RF: 0 lisinopril 10 mg Tablet 10 mg PO DAILY RF: 0 metoprolol tartrate 50 mg Tablet 50 mg PO BID RF: 0 hydrochlorothiazide 25 mg Tablet 25 mg PO DAILY RF: 0 Cymbalta 60 mg Capsule,Delayed Release(Dr/Ec) 120 mg PO BEDTIME RF: 0 melatonin 10 mg Tablet 10 mg PO BEDTIME RF: 0 Imitrex See Rx Instructions .ROUTE .COMPLEX RF: 0 Discharge Orders: Discharge ED (Routine); Ordered 12/28/20 Ordered By: Swetha Smith Referrals: Nikita Felton MD [Primary Care Provider] - Patient Instructions: Syncope (ED), Hypotension (ED) Activity Restrictions/Additional Instructions: As we discussed continue to monitor your blood pressure at home. Do not take morning blood pressure medications if blood pressure remains low. Please follow-up with primary care as scheduled. You need to return to the emergency department for any further episodes of syncope, lightheadedness, dizziness, chest pain, shortness of breath, difficulty breathing, or any other concerns you may have. Sign Out Sign Out Data: Patient Sign Out occurred on 12/28/20 at 17:15. Patient's care was discussed, and care was transferred from to DANA Ocasio. Coding Level of Care Code ED Commercial Real Estate Broker for Chg Fwd Exam Comprehensive Documented by User: DANA Ocasio 12/28/20 19:10 HPI - Syncope General: Chief Complaint: Syncope Stated Complaint: SYNCOPAL, DIZZY Time Seen by Provider: 12/28/20 16:03 [facility] ED PFSH: Social History Smoking and tobacco status: current every day smoker Course Vital Signs: Vital signs: Vital Signs Temperature 98.3 F 12/28/20 16:13 Pulse Rate 98 12/28/20 19:30 Respiratory Rate 18 12/28/20 19:30 Blood Pressure 90/57 12/28/20 19:30 Pulse Oximetry 97 12/28/20 19:30 MDM - Syncope MDM Narrative: Medical decision making narrative: I assumed care of patient from Nikita Hopper PA-C. I agree with his HPI. Upon re-examination patient's BP continues to run low. He does not complain of feeling lightheaded or dizzy. He has no complaints of chest pain or shortness of breath. He is not tachycardic. No signs or symptoms of infection. EKG showing no ischemic changes. His initial troponin is normal. Creatinine is elevated at 1.8. He has received 1 L of fluids so far. Second liter running. He took his lisinopril/hctz and metoprolol like normal this morning. No changes in meds. States his BP normally runs 120s/80s. After 2L of fluids pts BP still 80s/50s. He was able to ambulate around the emergency department without lightheadedness or dizziness. He states he feels completely normal. Still does not endorse chest pain or shortness of breath. Repeat EKG without changes from his initial. Discussed with patient keeping him overnight as an observation but patient states he would like to go home. He states he does have a blood pressure cuff at home and will continue to monitor pressures. He knows not to take his morning blood pressure medications if pressures are still running low. He has already scheduled a follow-up appointment with PCP this week. Patient recommended to come back to the ER for complaints of lightheadedness, dizziness, another syncopal episodes, chest pain, shortness of breath, or difficulty breathing. Lab Data: Labs: Lab Results 12/28/20 12/28/20 12/28/20 Range/Units 16:17 16:17 16:17 WBC 13.0 H (4.0-10.0) 10^3/ uL RBC 5.57 H (4.1-5.3) 10^6/u L Hgb 16.5 (11.7-16.6) g/dL Hct 50.6 (42.0-52.0) % MCV 90.8 (80-94) fL MCH 29.6 (28.0-34.0) pg MCHC 32.6 (30.0-36.0) g/dL RDW 13.2 (12.1-15.1) % Plt Count 246 (130-400) 10^3/c mm MPV 11.4 H (7.4-10.4) fL Neut % (Auto) 62.2 % Lymph % (Auto) 25.4 % [place] % (Auto) 8.7 % Eos % (Auto) 2.8 % Baso % (Auto) 0.5 % Neut # (Auto) 8.08 H (1.8-7.7) 10^3/u L Lymph # (Auto) 3.3 (0.8-4.8) 10^3/u L [place] # (Auto) 1.1 H (0.2-0.9) 10^3/u L Eos # (Auto) 0.4 (0.0-0.8) 10^3/u L Baso # (Auto) 0.1 (0.0-0.1) 10^3/u L Nucleated RBC % (a uto) 0 % Nucleated RBCs # 0.0 /100WBC Sodium 141 (136-145) mmol/L Potassium 5.0 (3.5-5.1) mmol/L Chloride 101 (98-107) mmol/L Carbon Dioxide 26 (22-29) mmol/L Anion Gap 19.0 (5-19) BUN 15 (6-20) mg/dL Creatinine 1.8 H (0.7-1.2) mg/dL GFR Calculation 40.8 L (90-130) mL/min Glucose 112 (65-115) mg/dL Calculated Osmolal ity 294 (285-295) mOsm/k g Calcium 9.6 (8.5-10.5) mg/dL Total Bilirubin 0.4 (0.15-1.2) mg/dL AST 30 (0-40) U/L ALT 32 (0-41) U/L Alkaline Phosphata se 72 (40-130) IU/L Troponin T Baselin e 14 (0-15) ng/L Troponin T 120 Min ewiiaapaayp (0-15) ng/L Delta Troponin T (0-10) ABS# Total Protein 6.7 (6.6-8.7) g/dL Albumin 4.6 (3.5-5.2) g/dL Globulin 2.1 (1.3-4.6) g/dL 12/28/20 Range/Units 18:42 WBC (4.0-10.0) 10^3/ uL RBC (4.1-5.3) 10^6/u L Hgb (11.7-16.6) g/dL Hct (42.0-52.0) % MCV (80-94) fL MCH (28.0-34.0) pg MCHC (30.0-36.0) g/dL RDW (12.1-15.1) % Plt Count (130-400) 10^3/c mm MPV (7.4-10.4) fL Neut % (Auto) % Lymph % (Auto) % Montgomery % (Auto) % Eos % (Auto) % Baso % (Auto) % Neut # (Auto) (1.8-7.7) 10^3/u L Lymph # (Auto) (0.8-4.8) 10^3/u L Montgomery # (Auto) (0.2-0.9) 10^3/u L Eos # (Auto) (0.0-0.8) 10^3/u L Baso # (Auto) (0.0-0.1) 10^3/u L Nucleated RBC % (a uto) % Nucleated RBCs # /100WBC Sodium (136-145) mmol/L Potassium (3.5-5.1) mmol/L Chloride (98-107) mmol/L Carbon Dioxide (22-29) mmol/L Anion Gap (5-19) BUN (6-20) mg/dL Creatinine (0.7-1.2) mg/dL GFR Calculation (90-130) mL/min Glucose (65-115) mg/dL Calculated Osmolal ity (285-295) mOsm/k g Calcium (8.5-10.5) mg/dL Total Bilirubin (0.15-1.2) mg/dL AST (0-40) U/L ALT (0-41) U/L Alkaline Phosphata se (40-130) IU/L Troponin T Baselin e (0-15) ng/L Troponin T 120 Min ewiiaapaayp 9.43 (0-15) ng/L Delta Troponin T -4.57 L (0-10) ABS# Total Protein (6.6-8.7) g/dL Albumin (3.5-5.2) g/dL Globulin (1.3-4.6) g/dL Imaging Data^: CT Head: Radiologist's impression: [address] [address] [address] Scan Report Signed Patient: Panda Gonzalez Unit #: [id number] : 1975 Age/Sex: 45 / M ADM Date: 12/28/20 Loc: ER Room/Bed: Attending Dr: Ordering Provider/Ordering MD: Nikita Hopper Date of Service: 12/28/20 Procedure(s): CT head wo con* [id number] Accession Number(s): [id number] Report Number: [id number] PROCEDURE INFORMATION: Exam: CT Head Without Contrast Exam date and time: 12/28/2020 4:15 PM Age: 45 years old Clinical indication: Dizziness and syncope and collapse; Additional info: Syncopal episode TECHNIQUE: Imaging protocol: Computed tomography of the head without contrast. Radiation optimization: All CT scans at this facility use at least one of these dose optimization techniques: automated exposure control; mA and/or kV adjustment per patient size (includes targeted exams where dose is matched to clinical indication); or iterative reconstruction. COMPARISON: CT head wo con* [id number] 06/29/2019 8:18 PM RADIATION DOSE METRICS: Total DLP (mGy-cm): 984.44 FINDINGS: Brain: Normal. No hemorrhage. Unremarkable white matter. No mass effect. Cerebral ventricles: No ventriculomegaly. Paranasal sinuses: Visualized sinuses are unremarkable. No fluid levels. Mastoid air cells: Visualized mastoid air cells are well aerated. Bones/joints: Unremarkable. No acute fracture. Soft tissues: Unremarkable. CT/CT head wo con* [id number] IMPRESSION: No acute intracranial abnormality. Radiation Dose CTDIVOL = (mGy): DLP = 984.44 (mGy-cm) Dictated By: Greg Escoto DO Signed By: Greg Escoto DO Signed Date/Time: 12/28/201710 DD/ 08 Discharge Plan Discharge Patient Disposition: Home Clinical Impression: Acute hypotension Episode of syncope Qualifiers: Syncope type: unspecified Qualified Code(s): R55 - Syncope and collapse Condition: Stable Prescriptions: No Action Humulin R Regular U-100 Insuln 100 unit/mL solution 60 unit SUBCUT BID RF: 0 rosuvastatin [Crestor] 40 mg tablet 40 mg PO DAILY RF: 0 azithromycin 250 mg tablet 250 mg PO DAILY 5 Days Qty: 6 RF: 0 gabapentin 600 mg Tablet 1,200 mg PO BID RF: 0 Zyrtec 10 mg Tablet 10 mg PO DAILY RF: 0 Mobic 15 mg Tablet 15 mg PO DAILY RF: 0 omeprazole 40 mg Capsule,Delayed Release(Dr/Ec) 40 mg PO DAILY RF: 0 Aspir-Low 81 mg Tablet,Delayed Release (Dr/Ec) 81 mg PO DAILY RF: 0 metformin 1,000 mg Tablet 1,000 mg PO BID RF: 0 lisinopril 10 mg Tablet 10 mg PO DAILY RF: 0 metoprolol tartrate 50 mg Tablet 50 mg PO BID RF: 0 hydrochlorothiazide 25 mg Tablet 25 mg PO DAILY RF: 0 Cymbalta 60 mg Capsule,Delayed Release(Dr/Ec) 120 mg PO BEDTIME RF: 0 melatonin 10 mg Tablet 10 mg PO BEDTIME RF: 0 Imitrex See Rx Instructions .ROUTE .COMPLEX RF: 0 Discharge Orders: Discharge ED (Routine); Ordered 12/28/20 Ordered By: Swetha Smith Referrals: Nikita Felton MD [Primary Care Provider] - Patient Instructions: Syncope (ED), Hypotension (ED) Activity Restrictions/Additional Instructions: As we discussed continue to monitor your blood pressure at home. Do not take morning blood pressure medications if blood pressure remains low. Please follow-up with primary care as scheduled. You need to return to the emergency department for any further episodes of syncope, lightheadedness, dizziness, chest pain, shortness of breath, difficulty breathing, or any other concerns you may have. Sign Out Sign Out Data: Patient Sign Out occurred on 12/28/20 at 17:15. Patient's care was discussed, and care was transferred from to DANA Ocasio. Coding Level of Care Code ED Commercial Real Estate Broker for Felag Fwd Exam Comprehensive
--- NOTE | 2020-12-28 16:15 | CTR_ITS ---
PROCEDURE INFORMATION: Exam: CT Head Without Contrast Exam date and time: 12/28/2020 4:15 PM Age: 45 years old Clinical indication: Dizziness and syncope and collapse; Additional info: Syncopal episode TECHNIQUE: Imaging protocol: Computed tomography of the head without contrast. Radiation optimization: All CT scans at this facility use at least one of these dose optimization techniques: automated exposure control; mA and/or kV adjustment per patient size (includes targeted exams where dose is matched to clinical indication); or iterative reconstruction. COMPARISON: CT head wo con* [id number] 06/29/2019 8:18 PM RADIATION DOSE METRICS: Total DLP (mGy-cm): 984.44 FINDINGS: Brain: Normal. No hemorrhage. Unremarkable white matter. No mass effect. Cerebral ventricles: No ventriculomegaly. Paranasal sinuses: Visualized sinuses are unremarkable. No fluid levels. Mastoid air cells: Visualized mastoid air cells are well aerated. Bones/joints: Unremarkable. No acute fracture. Soft tissues: Unremarkable. CT/CT head wo con* [id number] IMPRESSION: No acute intracranial abnormality. Radiation Dose CTDIVOL = (mGy): DLP = 984.44 (mGy-cm)
[2020-12-28 16:52] LABS: Basophils # 0.1 10^3/uL (0.0-0.1); Basophils % 0.5 %; Eosinophils # 0.4 10^3/uL (0.0-0.8); Eosinophils % 2.8 %; Hematocrit 50.6 % (42.0-52.0); Hemoglobin 16.5 g/dL (11.7-16.6); Lymphocytes # 3.3 10^3/uL (0.8-4.8); Lymphocytes % 25.4 %; Mean Corpuscular HGB Conc 32.6 g/dL (30.0-36.0); Mean Corpuscular Hemoglobin 29.6 pg (28.0-34.0); Mean Corpuscular Volume 90.8 fL (80-94); Mean Platelet Volume 11.4 fL (7.4-10.4); Monocytes # 1.1 10^3/uL (0.2-0.9); Monocytes % 8.7 %; Neutrophils # 8.08 10^3/uL (1.8-7.7); Neutrophils % 62.2 %; Nucleated Red Blood Cells % 0 %; Platelet Count 246 10^3/cmm (130-400); Red Blood Count 5.57 10^6/uL (4.1-5.3); Red Cell Distribution Width 13.2 % (12.1-15.1)
[2020-12-28 17:31] LABS: Troponin(5th) Baseline 14 ng/L (0-15)
[2020-12-28 17:33] LABS: Alanine Aminotransferase 32 U/L (0-41); Albumin Level 4.6 g/dL (3.5-5.2); Alkaline Phosphatase 72 IU/L (40-130); Aspartate Amino Transferase 30 U/L (0-40); Blood Urea Nitrogen 15 mg/dL (6-20); Calcium 9.6 mg/dL (8.5-10.5); Carbon Dioxide 26 mmol/L (22-29); Chloride 101 mmol/L (98-107); Globulin 2.1 g/dL (1.3-4.6); Glomerular Filtration Rate 40.8 mL/min (90-130); Glucose 112 mg/dL (65-115); Osmolality Calculated 294 mOsm/kg (285-295); Sodium 141 mmol/L (136-145); Total Bilirubin 0.4 mg/dL (0.15-1.2); Total Protein 6.7 g/dL (6.6-8.7)
[2020-12-28] MEDS: sodium chloride 0.9% 1,000 ML 999 ML IV ×2 (17:36→17:48)
--- NOTE | 2020-12-28 18:06 | ECG_ITS ---
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 Measurements Intervals [place] Rate: 92 P: 53 [place]: 142 QRS: -26 QRSD: 100 T: 58 QT: 351 QTc: 434 Interpretive Statements SINUS RHYTHM BORDERLINE LEFT AXIS DEVIATION [QRS AXIS < -20] NONSPECIFIC ST & T-WAVE ABNORMALITY Compared to ECG 12/28/2020 16:50:38 T-wave abnormality now present Electronically Signed On 12-30-2020 12:40:46 CDT by Kyra Huynh M.D. [id number]
[2020-12-28 19:47] LABS: Troponin 5 2HR 9.43 ng/L (0-15)
[2020-12-28 19:49] LABS: Troponin 5 2HR Delta -4.57 ABS# (0-10)
== END 2020-12-28 19:40 | disposition home or self-care (01) ==
PROVIDERS: Physician Assistant; Emergency Provider Physician Assistant; PCP General Practice
DX: R55 Syncope and collapse (principal); I95.9 Hypotension, unspecified; Z79.82 Long term (current) use of aspirin; Z79.4 Long term (current) use of insulin; F17.210 Nicotine dependence, cigarettes, uncomplicated
CPT/HCPCS: 70450; 71045; 80053; 84484; 85025; 93005; 96360; 96361; 99284; J7030

== ENCOUNTER → 2022-07-28 10:39 | Outpatient (BNVA) | payer MEDICAID, SELFPAY | PROVIDERS: PCP Family Medicine; Visit Provider Emergency Medicine | DX: J02.9 Acute pharyngitis, unspecified (principal) | CPT/HCPCS: 87071; 87880 ==

== ENCOUNTER → 2023-05-01 09:37 | Outpatient (BNVA) | payer MEDICAID, SELFPAY | PROVIDERS: PCP Family Medicine; Visit Provider Podiatrist Foot & Ankle Surgery | DX: L60.3 Nail dystrophy (principal); G62.9 Polyneuropathy, unspecified; L03.90 Cellulitis, unspecified; E11.42 Type 2 diabetes mellitus with diabetic polyneuropathy; Z79.4 Long term (current) use of insulin | CPT/HCPCS: 99203 ==

== ENCOUNTER 2023-11-14 12:58 | Emergency (ER) | payer MEDICAID, SELFPAY ==
[2023-11-14 13:02] VITALS: BP 87/49; PULSE 84; RESP 16; TEMP 36.8; O2SAT 93
--- NOTE | 2023-11-14 13:23 | ECG_ITS ---
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 Measurements Intervals [place] Rate: 82 P: 52 [place]: 169 QRS: -13 QRSD: 114 T: 53 QT: 356 QTc: 417 Interpretive Statements SINUS RHYTHM INCOMPLETE RIGHT BUNDLE BRANCH BLOCK [90+ ms QRS DURATION, TERMINAL R IN V1/V2, 40+ ms S IN I/aVL/V4/V5/V6] SEPTAL MYOCARDIAL INFARCTION , OF INDETERMINATE AGE [40+ ms Q WAVE IN V1/V2] Compared to ECG 12/28/2020 18:24:52 Incomplete right bundle-branch block now present Myocardial infarct finding now present T-wave abnormality no longer present Electronically Signed On 11-16-2023 13:33:41 CDT by Varghese Streeter M.D. [id number]
[2023-11-14 13:24] LABS: Basophils # 0.1 10^3/uL (0.0-0.1); Basophils % 0.5 %; Eosinophils # 0.2 10^3/uL (0.0-0.8); Hematocrit 39.8 % (37-53); Lymphocytes # 2.3 10^3/uL (0.8-4.8); Lymphocytes % 23.8 %; Mean Corpuscular HGB Conc 33.4 g/dL (30-55); Mean Corpuscular Hemoglobin 29.6 pg (27-33); Mean Corpuscular Volume 88.4 fl (82-101); Mean Platelet Volume 10.8 fL (7.4-10.4); Monocytes # 0.5 10^3/uL (0.2-0.9); Neutrophils # 6.68 10^3/uL (1.8-7.7); Neutrophils % 68.5 %; Nucleated Red Blood Cells % 0 %; Platelet Count 278 10^3/cmm (157-399); Red Cell Distribution Width 13.2 % (12.1-15.1); White Blood Count 9.76 10^3/uL (3.29-11.43)
[2023-11-14 13:42] LABS: Troponin(5th) Baseline 10 ng/L (0-15)
--- NOTE | 2023-11-14 13:48 | W.ED.WEAKNES ---
HPI - Weakness General: Chief complaint: Weakness Stated complaint: Weakness Time Seen by Provider: 11/14/23 13:05 Source: patient Mode of arrival: ambulatory History of Present Illness: 47-year-old male presents emergency room with complaint of cramping neck pain and back pain. Patient felt lightheaded and dizzy. Complaining of muscle aches and pains throughout his body he had been at work had been out in the heat. He states he is probably not been drinking enough water. He denies any chest pain has some generalized nausea but no distinct abdominal pain no dysuria urgency or frequency no vomiting or diarrhea. MD Complaint: generalized weakness Relieving factors: none Exacerbating factors: none Associated symptoms: Denies chest pain, chills, dysuria or fever(s) Review of Systems Const: Denies: fever(s) or chills Card: Denies: chest pain Resp: Denies: dyspnea GI: Denies: abdominal pain : Denies: dysuria, urinary frequency or urinary urgency Musc: Denies: neck pain or back pain Skin/Breast: Denies: rash PFSH ED PFSH: Medical History Diabetes Social History Smoking and tobacco/nicotine status: current every day tobacco/nicotine user Physical Exam Const: COMMON NORMALS: no acute distress GENERAL APPEARANCE: cooperative and comfortable ORIENTATION/CONSCIOUSNESS: Yes awake, Yes oriented to person, Yes oriented to place and Yes oriented to time HENMT: COMMON NORMALS: normocephalic, atraumatic and hearing grossly normal bilaterally HEAD & SCALP: normocephalic and atraumatic Resp: COMMON NORMALS: normal respiratory effort, No retractions, No use of accessory muscles and clear to auscultation bilaterally AUSCULTATION: clear to auscultation bilaterally Cardio: COMMON NORMALS: regular rate, regular rhythm and No murmurs present (Cardio) RATE: regular rate RHYTHM: regular rhythm GI: COMMON NORMALS: Soft to palpation and No hepatosplenomegaly present AUSCULTATION: Yes normoactive bowel sounds PALPATION: Yes Soft to palpation, No Tenderness to palpation present (GI), No Guarding due to palpation present (GI) and Yes No hepatosplenomegaly present Extremity: COMMON NORMALS: normal to inspection, capillary refill normal, no clubbing, cyanosis or edema, no calf tenderness and no pedal edema Neuro: SENSORIUM/ORIENTATION: Yes oriented to person, Yes oriented to place and Yes oriented to time Skin: COMMON NORMALS: no rashes or lesions noted GENERAL SKIN EXAM: no rashes or lesions noted Course Vital Signs: Vital signs: Vital Signs Temperature 98.3 F 11/14/23 13:02 Pulse Rate 95 11/14/23 15:00 Respiratory Rate 16 11/14/23 13:02 Blood Pressure 84/58 11/14/23 14:11 Pulse Oximetry 97 11/14/23 15:00 Oxygen Delivery Me thod Room Air 11/14/23 14:11 MDM - Weakness Medical Decision Making Patient initial labs showed mildly elevated lactic acid elevated anion gap after IV fluids this improved. He is feeling much better will complete the second bag of fluids discharge patient home avoid heat increase fluid intake and recheck if not improving Medical Records I reviewed the patient's medical records. Lab Data I reviewed the patient's lab results. 11/14/23 12:48 11/14/23 14:48 Radiology Impressions Chest X-Ray 11/14/23 14:41 IMPRESSION: Unremarkable chest radiograph. Laboratory Results WBC 9.76 10^3/uL (3.29-11.43) 11/14/23 12:48 RBC 4.50 10^6/uL (3.85-5.65) 11/14/23 12:48 Hgb 13.30 g/dL (11.27-16.99) 11/14/23 12:48 Hct 39.8 % (37-53) 11/14/23 12:48 MCV 88.4 fl (82-101) 11/14/23 12:48 MCH 29.6 pg (27-33) 11/14/23 12:48 MCHC 33.4 g/dL (30-55) 11/14/23 12:48 RDW 13.2 % (12.1-15.1) 11/14/23 12:48 Plt Count 278 10^3/cmm (157-399) 11/14/23 12:48 MPV 10.8 fL (7.4-10.4) H 11/14/23 12:48 Neut % (Auto) 68.5 % 11/14/23 12:48 Lymph % (Auto) 23.8 % 11/14/23 12:48 [place] % (Auto) 5.0 % 11/14/23 12:48 Eos % (Auto) 2.0 % 11/14/23 12:48 Baso % (Auto) 0.5 % 11/14/23 12:48 Neut # (Auto) 6.68 10^3/uL (1.8-7.7) 11/14/23 12:48 Lymph # (Auto) 2.3 10^3/uL (0.8-4.8) 11/14/23 12:48 [place] # (Auto) 0.5 10^3/uL (0.2-0.9) 11/14/23 12:48 Eos # (Auto) 0.2 10^3/uL (0.0-0.8) 11/14/23 12:48 Baso # (Auto) 0.1 10^3/uL (0.0-0.1) 11/14/23 12:48 Nucleated RBC % (auto) 0 % 11/14/23 12:48 Nucleated RBCs # 0.0 /100WBC 11/14/23 12:48 Sodium 135 mmol/L (136-145) L 11/14/23 14:48 Potassium 4.6 mmol/L (3.5-5.1) 11/14/23 14:48 Chloride 102 mmol/L (98-107) 11/14/23 14:48 Carbon Dioxide 22 mmol/L (22-29) 11/14/23 14:48 Anion Gap 15.6 (5-19) 11/14/23 14:48 BUN 17 mg/dL (6-20) 11/14/23 14:48 Creatinine 1.4 mg/dL (0.7-1.2) H 11/14/23 14:48 GFR Calculation 54.1 mL/min (90-130) L 11/14/23 14:48 Glucose 119 mg/dL (65-115) H 11/14/23 14:48 Calculated Osmolality 283 mOsm/kg (285-295) L 11/14/23 14:48 Lactic Acid 1.4 mmol/L (0.5-2.2) 11/14/23 15:17 Calcium 9.4 mg/dL (8.5-10.5) 11/14/23 14:48 Total Bilirubin 0.2 mg/dL (0.15-1.2) 11/14/23 12:48 AST 28 U/L (0-40) 11/14/23 12:48 ALT 29 U/L (0-41) 11/14/23 12:48 Alkaline Phosphatase 55 U/L (40-130) 11/14/23 12:48 Creatine Kinase 314 U/L (39-308) H 11/14/23 12:48 Troponin T Baseline 10 ng/L (0-15) 11/14/23 12:48 Troponin T 120 Minute 6.33 ng/L (0-15) 11/14/23 14:48 Delta Troponin T -3.67 ABS# (0-10) L 11/14/23 14:48 Total Protein 7.0 g/dL (6.6-8.7) 11/14/23 12:48 Albumin 4.6 g/dL (3.5-5.2) 11/14/23 12:48 Globulin 2.4 g/dL (1.3-4.6) 11/14/23 12:48 Urine Color Yellow (Yellow) 11/14/23 15:00 Urine Appearance Clear (CLEAR) 11/14/23 15:00 Urine pH 5 (5-7) 11/14/23 15:00 Ur Specific [place] 1.015 (1.005-1.030) 11/14/23 15:00 Urine Protein Trace (Negative) 11/14/23 15:00 Urine Glucose (UA) Norm (Normal) 11/14/23 15:00 Urine Ketones Negative (Negative) 11/14/23 15:00 Urine Blood Neg (Negative) 11/14/23 15:00 Urine Nitrate Negative (Negative) 11/14/23 15:00 Urine Bilirubin 1+ (Negative) H 11/14/23 15:00 Urine Urobilinogen Norm mg/dL (Negative) 11/14/23 15:00 Ur Leukocyte Esterase Negative (Negative) 11/14/23 15:00 Urine RBC None /hpf (0-2) 11/14/23 15:00 Urine WBC None /hpf (0-5) 11/14/23 15:00 Ur Squamous Epith Cells None /hpf (0-5) 11/14/23 15:00 Amorphous Sediment Not Reportable 11/14/23 15:00 Urine Bacteria None /hpf (NONE) 11/14/23 15:00 Hyaline Casts 0-4 /lpf H 11/14/23 15:00 All radiology interpretation(s) finalized by discharge Discharge Plan Discharge Patient Disposition: Home Clinical Impression: Acute dehydration Condition: Stable Prescriptions: No Action rosuvastatin [Crestor] 40 mg tablet 40 mg PO QPM cetirizine [Zyrtec] 10 mg Tablet 10 mg PO DAILY omeprazole 40 mg Capsule,Delayed Release(Dr/Ec) 40 mg PO DAILY metformin 1,000 mg Tablet 1,000 mg PO BID lisinopril 10 mg Tablet 10 mg PO DAILY metoprolol tartrate 50 mg Tablet 50 mg PO BID duloxetine [Cymbalta] 60 mg Capsule,Delayed Release(Dr/Ec) 120 mg PO BEDTIME meloxicam 15 mg tablet 15 mg PO DAILY gabapentin 400 mg capsule 400 mg PO TID gabapentin 800 mg tablet 800 mg PO TID hydrochlorothiazide 12.5 mg tablet 12.5 mg PO DAILY cyclobenzaprine 10 mg tablet 5 - 10 mg PO TID PRN (Reason: Muscle Spasm) terazosin 1 mg capsule 1 mg PO BEDTIME insulin aspart U-100 100 unit/mL (3 mL) insulin pen See Rx Instructions .ROUTE .COMPLEX Rx Instructions: NJECT 10 TO 30 UNITS THREE TIMES DAILY SUB-Q WITH MEALS, ADJUST BASED ON SLIDING SCALE, MAX DAILY DOSAGE OF 90 UNITS. Lantus Solostar U-100 Insulin 100 unit/mL (3 mL) insulin pen 40 unit SUBCUT BID Ozempic 1 mg/dose (4 mg/3 mL) pen injector 1 mg SUBCUT Q7D Rx Instructions: ON FRIDAYS Discharge Orders: Discharge ED (Routine); Ordered 11/14/23 Ordered By: Sterling Cruz Referrals: Jamie Arroyo [Primary Care Provider] - Discharge Diet: Usual diet Discharge Activity: Increase activity as tolerated Patient Instructions: Dehydration (ED), Opioid Safety, Pain Management Activity Restrictions/Additional Instructions: Thank you for choosing [facility] for your healthcare needs today. It is very important that you follow up as instructed or that you return to the Emergency Department should you have concerns or if your condition changes or worsens in any way. You were seen in the emergency room with acute dehydration there was some lab abnormalities but they improved after IV hydration. Recommend clear liquid diet for the next 24 hours increase your fluid intake and recheck with your primary care doctor if not improving. Coding Level of Care Code ED Circuit Tester for Wendy Weeks
[2023-11-14 13:49] LABS: Alanine Aminotransferase 29 U/L (0-41); Albumin Level 4.6 g/dL (3.5-5.2); Alkaline Phosphatase 55 U/L (40-130); Aspartate Amino Transferase 28 U/L (0-40); Blood Urea Nitrogen 18 mg/dL (6-20); Calcium 9.7 mg/dL (8.5-10.5); Carbon Dioxide 17 mmol/L (22-29); Chloride 100 mmol/L (98-107); Globulin 2.4 g/dL (1.3-4.6); Glomerular Filtration Rate 46.4 mL/min (90-130); Glucose 142 mg/dL (65-115); Osmolality Calculated 284 mOsm/kg (285-295); Sodium 135 mmol/L (136-145); Total Bilirubin 0.2 mg/dL (0.15-1.2)
[2023-11-14 14:11] VITALS: BP 84/58; PULSE 79; O2SAT 96
--- NOTE | 2023-11-14 14:41 | XR_ITS ---
WS: [id number] Exam: XR chest 1V portable [id number] Date/Time of Exam: 11/14/2023 2:41 PM Reason For Exam: dyspnea/cough Comparison 12/28/2020. Findings: The lungs are clear and fully expanded. Costophrenic angles are sharp. No infiltrates. Bronchovascula r relief appears normal. Cardiac silhouette is unremarkable. Bony elements are intact. XR/XR chest 1V portable [id number] IMPRESSION: Unremarkable chest radiograph.
[2023-11-14] MEDS: SODIUM CHLORIDE 0.9% 3102.57000000000016 ML IV (14:42)
[2023-11-14 15:00] VITALS: PULSE 95; O2SAT 97
[2023-11-14 15:00] LABS: Lactic Sepsis W/Reflex 3.1 mmol/L (0.5-2.2)
--- NOTE | 2023-11-14 15:06 | ECG_ITS ---
[facility] Test Date: 2023-11-14 Pat Name: Panda Gonzalez Department: Room: Gender: Male Cupola Tapper: : 1975 Requested By: Sterling Davis Order Number: [id number] Reading MD: Varghese Streeter M.D. Measurements Intervals [place] Rate: 72 P: 65 [place]: 174 QRS: 10 QRSD: 109 T: 58 QT: 365 QTc: 402 Interpretive Statements SINUS RHYTHM Compared to ECG 11/14/2023 13:23:53 Incomplete right bundle-branch block no longer present Myocardial infarct finding no longer present Electronically Signed On 11-16-2023 13:56:03 CDT by Varghese Streeter M.D. [id number]
[2023-11-14 15:13] LABS: Creatine Phosphokinase 314 U/L (39-308)
[2023-11-14 15:28] LABS: Troponin 5 2HR 6.33 ng/L (0-15)
[2023-11-14 15:29] LABS: Troponin 5 2HR Delta -3.67 ABS# (0-10)
[2023-11-14 15:35] LABS: Add Urine Microscopic? YES; Bilirubin Urine 1+ (Negative); Blood Urine Neg (Negative); Glucose Urine UA Norm (Normal); Ketones Urine Negative (Negative); Leukocyte Esterase Urine Negative (Negative); Nitrate Urine Negative (Negative); Protein Urine Trace (Negative); Specific Gravity, Urine 1.015 (1.005-1.030); Urine Appearance Clear (CLEAR); Urine Color Yellow (Yellow); Urobilinogen Urine Norm (Negative); pH Urine 5 (5-7)
[2023-11-14 15:36] LABS: Hyaline Casts Urine 0-4 /lpf
[2023-11-14 15:41] LABS: Lactic Sepsis W/Reflex 1.4 mmol/L (0.5-2.2)
[2023-11-14 16:10] LABS: Anion Gap 15.6 (5-19); Blood Urea Nitrogen 17 mg/dL (6-20); Calcium 9.4 mg/dL (8.5-10.5); Carbon Dioxide 22 mmol/L (22-29); Chloride 102 mmol/L (98-107); Creatinine Clr Calc Pharmacy 81.5109; Glomerular Filtration Rate 54.1 mL/min (90-130); Glucose 119 mg/dL (65-115); Osmolality Calculated 283 mOsm/kg (285-295); Potassium 4.6 mmol/L (3.5-5.1); Sodium 135 mmol/L (136-145)
[2023-11-14 16:25] LABS: Reflex Lactate Order REFLEX LACTIC ORDERD
== END 2023-11-14 17:04 | disposition home or self-care (01) ==
PROVIDERS: Emergency Provider Family Medicine; PCP Family Medicine
DX: E86.0 Dehydration (principal); Z79.85 Long-term (current) use of injectable non-insulin antidiabetic drugs; Z79.4 Long term (current) use of insulin; Z79.84 Long term (current) use of oral hypoglycemic drugs; E11.9 Type 2 diabetes mellitus without complications; Z72.0 Tobacco use
CPT/HCPCS: 36415; 71045; 80048; 80053; 81001; 82550; 83605; 84484; 85025; 87040; 93005; 99285; J7030

== ENCOUNTER 2023-12-29 23:17 | Emergency (ER) | payer MEDICAID, SELFPAY ==
[2023-12-29 23:20] VITALS: BP 101/63; PULSE 95; RESP 18; TEMP 36.3; O2SAT 95; BMI 27.1
--- NOTE | 2023-12-29 23:22 | ECG_ITS ---
[facility] Test Date: 2023-12-30 Pat Name: Panda Gonzalez Department: Room: Gender: Male Forensic Examiner: : 1975 Requested By: Al Currie Order Number: [id number] Kumar MD: Varghese Streeter M.D. Measurements Intervals [place] Rate: 86 P: 52 SD: 161 QRS: -33 QRSD: 110 T: 58 QT: 357 QTc: 428 Interpretive Statements SINUS RHYTHM LEFT AXIS DEVIATION [QRS AXIS < -30] Compared to ECG 11/14/2023 15:06:09 Left-axis deviation now present Electronically Signed On 12-30-2023 7:58:44 CDT by Varghese Streeter M.D. [id number]
--- NOTE | 2023-12-29 23:29 | ED_ITS ---
HPI - Syncope 2 General: Chief Complaint: Syncope Stated Complaint: syncope Time Seen by Provider: 12/29/23 23:18 History of Present Illness: Patient presents emerged part with complaint of a syncopal episode that happened at home while he was walking downstairs. He states he mated to the bottom stairs and then passed out. He was awake and alert when EMS arrived. Per EMS he did have a positive orthostatic hypotension. His systolic blood pressure dropped from 100-80 when going from sitting to standing. He currently feels much better at this time. He was given 500 mL of IV fluid prior to arrival by EMS. Patient denies ever having any chest pain or palpitations. Patient denies any injury. States he just feels tired at this time. Patient does have a history of high blood pressure and takes lisinopril and metoprolol for this. Patient admits that he has not been drinking any water at all today but did just drink several sodas. PFSH ED 2 PFSH: Medical History Diabetes Social History Smoking and tobacco/nicotine status: current every day tobacco/nicotine user Physical Exam 2 Const: COMMON NORMALS: no acute distress Eye: COMMON NORMALS: Equal, round and reactive pupils present and EOMs intact bilaterally PUPIL: Yes Equal, round and reactive pupils present Chest: COMMONS NORMALS: normal inspection of the chest and normal palpation of entire chest wall Resp: COMMON NORMALS: normal respiratory effort Cardio: COMMON NORMALS: regular rate and regular rhythm RATE: regular rate RHYTHM: regular rhythm GI: COMMON NORMALS: Normal to inspection, nondistended, normoactive bowel sounds present and non-tender Course 2 Vital Signs: Vital signs: Vital Signs Temperature 97.4 F L 12/29/23 23:20 Pulse Rate 88 12/30/23 00:11 Respiratory Rate 16 12/30/23 00:11 Blood Pressure 101/63 12/30/23 00:11 Pulse Oximetry 91 12/30/23 00:11 MDM - Syncope Medical Decision Making Patient with normal physical exam. Did have positive orthostatics. Patient was given 2 L of fluids and patient feeling much better at this time. He has a mild leukocytosis but no other complaints. Has no other evidence of illness. He has no fever. Patient does not appear to be septic. Suspect patient just became dehydrated and having orthostatic syncope. EKG with nonspecific ST and T wave changes. No ischemic changes. Lab Data 12/29/23 23:02 12/29/23 23:02 Laboratory Results WBC 12.49 10^3/uL (3.29-11.43) H 12/29/23 23:02 RBC 4.83 10^6/uL (3.85-5.65) 12/29/23 23:02 Hgb 14.40 g/dL (11.27-16.99) 12/29/23 23:02 Hct 42.3 % (37-53) 12/29/23 23:02 MCV 87.6 fl (82-101) 12/29/23 23:02 MCH 29.8 pg (27-33) 12/29/23 23:02 MCHC 34.0 g/dL (30-55) 12/29/23 23:02 RDW 13.1 % (12.1-15.1) 12/29/23 23:02 Plt Count 253 10^3/cmm (157-399) 12/29/23 23:02 MPV 10.3 fL (7.4-10.4) 12/29/23 23:02 Neut % (Auto) 42.6 % 12/29/23 23:02 Lymph % (Auto) 44.6 % 12/29/23 23:02 [place] % (Auto) 9.4 % 12/29/23 23:02 Eos % (Auto) 2.6 % 12/29/23 23:02 Baso % (Auto) 0.6 % 12/29/23 23:02 Neut # (Auto) 5.31 10^3/uL (1.8-7.7) 12/29/23 23:02 Lymph # (Auto) 5.6 10^3/uL (0.8-4.8) H 12/29/23 23:02 [place] # (Auto) 1.2 10^3/uL (0.2-0.9) H 12/29/23 23:02 Eos # (Auto) 0.3 10^3/uL (0.0-0.8) 12/29/23 23:02 Baso # (Auto) 0.1 10^3/uL (0.0-0.1) 12/29/23 23:02 Nucleated RBC % (auto) 0 % 12/29/23 23:02 Nucleated RBCs # 0.0 /100WBC 12/29/23 23:02 Sodium 136 mmol/L (136-145) 12/29/23 23:02 Potassium 3.5 mmol/L (3.5-5.1) 12/29/23 23:02 Chloride 100 mmol/L (98-107) 12/29/23 23:02 Carbon Dioxide 18 mmol/L (22-29) L 12/29/23 23:02 Anion Gap 21.5 (5-19) H 12/29/23 23:02 BUN 16 mg/dL (6-20) 12/29/23 23:02 Creatinine 1.0 mg/dL (0.7-1.2) 12/29/23 23:02 GFR Calculation 79.4 mL/min (90-130) L 12/29/23 23:02 Glucose 104 mg/dL (65-115) 12/29/23 23:02 Calculated Osmolality 283 mOsm/kg (285-295) L 12/29/23 23:02 Calcium 9.1 mg/dL (8.5-10.5) 12/29/23 23:02 Total Bilirubin 0.2 mg/dL (0.15-1.2) 12/29/23 23:02 AST 28 U/L (0-40) 12/29/23 23:02 ALT 36 U/L (0-41) 12/29/23 23:02 Alkaline Phosphatase 56 U/L (40-130) 12/29/23 23:02 Total Protein 7.0 g/dL (6.6-8.7) 12/29/23 23:02 Albumin 4.5 g/dL (3.5-5.2) 12/29/23 23:02 Globulin 2.5 g/dL (1.3-4.6) 12/29/23 23:02 No radiology studies performed this visit Discharge Plan Discharge Patient Disposition: Home Clinical Impression: Vasovagal syncope, Dehydration Condition: Stable Prescriptions: No Action rosuvastatin [Crestor] 40 mg tablet 40 mg PO QPM cetirizine [Zyrtec] 10 mg Tablet 10 mg PO DAILY omeprazole 40 mg Capsule,Delayed Release(Dr/Ec) 40 mg PO DAILY metformin 1,000 mg Tablet 1,000 mg PO BID lisinopril 10 mg Tablet 10 mg PO DAILY metoprolol tartrate 50 mg Tablet 50 mg PO BID duloxetine [Cymbalta] 60 mg Capsule,Delayed Release(Dr/Ec) 120 mg PO BEDTIME meloxicam 15 mg tablet 15 mg PO DAILY gabapentin 400 mg capsule 400 mg PO TID gabapentin 800 mg tablet 800 mg PO TID hydrochlorothiazide 12.5 mg tablet 12.5 mg PO DAILY cyclobenzaprine 10 mg tablet 5 - 10 mg PO TID PRN (Reason: Muscle Spasm) terazosin 1 mg capsule 1 mg PO BEDTIME insulin aspart U-100 100 unit/mL (3 mL) insulin pen See Rx Instructions .ROUTE .COMPLEX Rx Instructions: NJECT 10 TO 30 UNITS THREE TIMES DAILY SUB-Q WITH MEALS, ADJUST BASED ON SLIDING SCALE, MAX DAILY DOSAGE OF 90 UNITS. Lantus Solostar U-100 Insulin 100 unit/mL (3 mL) insulin pen 40 unit SUBCUT BID Ozempic 1 mg/dose (4 mg/3 mL) pen injector 1 mg SUBCUT Q7D Rx Instructions: ON FRIDAYS Discharge Orders: Discharge ED (Routine); Ordered 12/30/23 Ordered By: Al Currie Referrals: Jamie Arroyo [Primary Care Provider] - Discharge Diet: Advance as tolerated Discharge Activity: Resume usual activity Patient Instructions: Opioid Safety, Pain Management Activity Restrictions/Additional Instructions: He needs to drink more water. Soda only will dehydrate you. Coding Level of Care Code ED School Community Relations Coordinator for Wendy Weeks
[2023-12-29 23:35] LABS: Basophils # 0.1 10^3/uL (0.0-0.1); Basophils % 0.6 %; Eosinophils # 0.3 10^3/uL (0.0-0.8); Eosinophils % 2.6 %; Hematocrit 42.3 % (37-53); Lymphocytes # 5.6 10^3/uL (0.8-4.8); Lymphocytes % 44.6 %; Mean Corpuscular Hemoglobin 29.8 pg (27-33); Mean Corpuscular Volume 87.6 fl (82-101); Mean Platelet Volume 10.3 fL (7.4-10.4); Monocytes # 1.2 10^3/uL (0.2-0.9); Monocytes % 9.4 %; Neutrophils # 5.31 10^3/uL (1.8-7.7); Neutrophils % 42.6 %; Nucleated Red Blood Cells % 0 %; Platelet Count 253 10^3/cmm (157-399); Red Blood Count 4.83 10^6/uL (3.85-5.65); Red Cell Distribution Width 13.1 % (12.1-15.1); White Blood Count 12.49 10^3/uL (3.29-11.43)
[2023-12-29] MEDS: sodium chloride 0.9% 1,000 ML 999 ML IV (23:54)
[2023-12-30 00:01] LABS: Alanine Aminotransferase 36 U/L (0-41); Albumin Level 4.5 g/dL (3.5-5.2); Alkaline Phosphatase 56 U/L (40-130); Anion Gap 21.5 (5-19); Aspartate Amino Transferase 28 U/L (0-40); Blood Urea Nitrogen 16 mg/dL (6-20); Calcium 9.1 mg/dL (8.5-10.5); Carbon Dioxide 18 mmol/L (22-29); Chloride 100 mmol/L (98-107); Creatinine Clr Calc Pharmacy 104.7097; Globulin 2.5 g/dL (1.3-4.6); Glomerular Filtration Rate 79.4 mL/min (90-130); Glucose 104 mg/dL (65-115); Osmolality Calculated 283 mOsm/kg (285-295); Potassium 3.5 mmol/L (3.5-5.1); Sodium 136 mmol/L (136-145); Total Bilirubin 0.2 mg/dL (0.15-1.2)
[2023-12-30 00:11] VITALS: BP 101/63; PULSE 88; RESP 16; O2SAT 91
[2023-12-30 00:37] VITALS: BP 101/63; PULSE 88; RESP 16; TEMP 36.3; O2SAT 91
== END 2023-12-30 00:38 | disposition home or self-care (01) ==
PROVIDERS: Emergency Provider Emergency Medicine; PCP Family Medicine
DX: R55 Syncope and collapse (principal); E86.0 Dehydration; Z79.85 Long-term (current) use of injectable non-insulin antidiabetic drugs; Z79.4 Long term (current) use of insulin; Z79.84 Long term (current) use of oral hypoglycemic drugs; E11.9 Type 2 diabetes mellitus without complications; Z72.0 Tobacco use
CPT/HCPCS: 80053; 85025; 93005; 96360; 99284; J7030

== ENCOUNTER 2024-02-18 18:28 | Emergency (ER) | payer MEDICAID, SELFPAY ==
[2024-02-18 18:31] VITALS: BP 94/50; PULSE 89; RESP 18; TEMP 36.7; O2SAT 91; BMI 29.7
--- NOTE | 2024-02-18 18:37 | ED_ITS ---
HPI - Syncope 2 General: Chief Complaint: Syncope Stated Complaint: hypotension Time Seen by Provider: 02/18/24 18:33 History of Present Illness: Presents to the ER with complaints of syncope lightheaded dizziness and possible orthostatic hypotension. When EMS got there his initial blood pressure was 60s over 40s, they gave him approximately 300 mL of normal saline upon transfer here. Blood pressure increased to 94/50 and patient said he was feeling much better. Patient is a diabetic. Patient says he been here several times for similar episodes usually after fluid he gets better. He said no changes in medicine, Related Data Home Medications Medication Instructions Recorded Confirmed cetirizine 10 mg tablet (Zyrtec) 10 mg PO DAILY 06/29/19 11/14/23 duloxetine 60 mg capsule,delayed 120 mg PO BEDTIME 06/29/19 11/14/23 release (Cymbalta) lisinopril 10 mg tablet 10 mg PO DAILY 06/29/19 11/14/23 metformin 1,000 mg tablet 1,000 mg PO BID 06/29/19 11/14/23 metoprolol tartrate 50 mg tablet 50 mg PO BID 06/29/19 11/14/23 omeprazole 40 mg capsule,delayed 40 mg PO DAILY 06/29/19 11/14/23 release rosuvastatin 40 mg tablet (Crestor) 40 mg PO QPM 08/06/20 11/14/23 cyclobenzaprine 10 mg tablet 5 - 10 mg PO TID PRN Muscle Spasm 11/14/23 11/14/23 gabapentin 400 mg capsule 400 mg PO TID 11/14/23 11/14/23 gabapentin 800 mg tablet 800 mg PO TID 11/14/23 11/14/23 hydrochlorothiazide 12.5 mg tablet 12.5 mg PO DAILY 11/14/23 11/14/23 insulin aspart U-100 100 unit/mL See Rx Instructions .Route .COMPLEX 11/14/23 11/14/23 (3 mL) subcutaneous pen insulin glargine 100 unit/mL (3 40 unit SUBCUT BID 11/14/23 11/14/23 mL) subcutaneous pen (Lantus Solostar U-100 Insulin) meloxicam 15 mg tablet 15 mg PO DAILY 11/14/23 11/14/23 semaglutide 1 mg/dose (4 mg/3 mL) 1 mg SUBCUT Q7D 11/14/23 11/14/23 subcutaneous pen injector (Ozempic) terazosin 1 mg capsule 1 mg PO BEDTIME 11/14/23 11/14/23 Allergies Allergy/AdvReac Type Severity Reaction Status Date / Time atorvastatin [From Lipitor] Allergy ADR-Muscle Verified 11/14/23 13:12 Pain Review of Systems 2 General: Reports: 10 or more systems reviewed and unremarkable except in HPI and below PFSH ED 2 PFSH: Medical History Diabetes Social History Smoking and tobacco/nicotine status: current every day tobacco/nicotine user Physical Exam 2 Const: COMMON NORMALS: no acute distress, average body habitus, patient oriented x3, no limitations, healthy appearing, alert and well nourished HENMT: COMMON NORMALS: normocephalic, atraumatic, hearing grossly normal bilaterally, external ears normal, Normal external nose present and moist oral mucous membranes HEAD & SCALP: normocephalic and atraumatic NOSE: Normal external nose present EXTERNAL EAR: Yes external ears normal Neck/C-Spine: COMMON NORMALS: full ROM, no lymphadenopathy, no meningeal signs, no JVD and Thyroid normal THYROID: Thyroid normal Chest: COMMONS NORMALS: normal inspection of the chest and normal palpation of entire chest wall Resp: COMMON NORMALS: normal respiratory effort, No retractions, No use of accessory muscles and clear to auscultation bilaterally AUSCULTATION: clear to auscultation bilaterally Cardio: COMMON NORMALS: no JVD, regular rate, regular rhythm, S1 normal heart sound present, S2 normal heart sound present, No gallops present (Cardio), No clicks present (Cardio), No murmurs present (Cardio) and No rub (Cardio) R ATE: regular rate RHYTHM: regular rhythm HEART SOUNDS: S1 normal heart sound present and S2 normal heart sound present GI: COMMON NORMALS: Normal to inspection, nondistended, normoactive bowel sounds present, Soft to palpation, non-tender, No hepatosplenomegaly present and no masses PALPATION: Yes Soft to palpation and Yes No hepatosplenomegaly present Neuro: COMMON NORMALS: patient oriented x3 SENSORIUM/ORIENTATION: Yes alert MENINGEAL SIGNS: Yes no meningeal signs Course 2 Vital Signs: Vital signs: Vital Signs Temperature 98.1 F 02/18/24 18:31 Pulse Rate 94 02/18/24 18:39 Respiratory Rate 18 02/18/24 18:31 Blood Pressure 85/55 02/18/24 18:39 Pulse Oximetry 87 L 02/18/24 18:39 Oxygen Delivery Me thod Room Air 02/18/24 18:39 MDM - Syncope Medical Decision Making Patient could have orthostatic hypotension. Patient was given 2 L bolus normal saline, all lab work was being obtained, once lab work was back these results were discussed with the patient patient be discharged home. Medical Records I reviewed the patient's medical records. Lab Data I reviewed the patient's lab results. 02/18/24 18:30 02/18/24 18:30 Laboratory Results WBC 12.56 10^3/uL (3.29-11.43) H 02/18/24 18:30 RBC 4.71 10^6/uL (3.85-5.65) 02/18/24 18:30 Hgb 13.80 g/dL (11.27-16.99) 02/18/24 18:30 Hct 42.5 % (37-53) 02/18/24 18:30 MCV 90.2 fl (82-101) 02/18/24 18:30 MCH 29.3 pg (27-33) 02/18/24 18:30 MCHC 32.5 g/dL (30-55) 02/18/24 18:30 RDW 13.2 % (12.1-15.1) 02/18/24 18:30 Plt Count 269 10^3/cmm (157-399) 02/18/24 18:30 MPV 10.6 fL (7.4-10.4) H 02/18/24 18:30 Neut % (Auto) 55.2 % 02/18/24 18:30 Lymph % (Auto) 34.6 % 02/18/24 18:30 Morton % (Auto) 7.4 % 02/18/24 18:30 Eos % (Auto) 2.0 % 02/18/24 18:30 Baso % (Auto) 0.5 % 02/18/24 18:30 Neut # (Auto) 6.93 10^3/uL (1.8-7.7) 02/18/24 18:30 Lymph # (Auto) 4.4 10^3/uL (0.8-4.8) 02/18/24 18:30 Morton # (Auto) 0.9 10^3/uL (0.2-0.9) 02/18/24 18:30 Eos # (Auto) 0.3 10^3/uL (0.0-0.8) 02/18/24 18:30 Baso # (Auto) 0.1 10^3/uL (0.0-0.1) 02/18/24 18:30 Nucleated RBC % (auto) 0 % 02/18/24 18:30 Nucleated RBCs # 0.0 /100WBC 02/18/24 18:30 Sodium 137 mmol/L (136-145) 02/18/24 18:30 Potassium 4.0 mmol/L (3.5-5.1) 02/18/24 18:30 Chloride 99 mmol/L (98-107) 02/18/24 18:30 Carbon Dioxide 22 mmol/L (22-29) 02/18/24 18:30 Anion Gap 20.0 (5-19) H 02/18/24 18:30 BUN 20 mg/dL (6-20) 02/18/24 18:30 Creatinine 1.6 mg/dL (0.7-1.2) H 02/18/24 18:30 GFR Calculation 46.2 mL/min (90-130) L 02/18/24 18:30 Glucose 110 mg/dL (65-115) 02/18/24 18:30 Calculated Osmolality 287 mOsm/kg (285-295) 02/18/24 18:30 Calcium 10.1 mg/dL (8.5-10.5) 02/18/24 18:30 Magnesium 1.9 mg/dL (1.7-2.3) 02/18/24 18:30 Total Bilirubin 0.2 mg/dL (0.15-1.2) 02/18/24 18:30 AST 32 U/L (0-40) 02/18/24 18:30 ALT 30 U/L (0-41) 02/18/24 18:30 Alkaline Phosphatase 52 U/L (40-130) 02/18/24 18:30 Total Protein 7.2 g/dL (6.6-8.7) 02/18/24 18:30 Albumin 4.7 g/dL (3.5-5.2) 02/18/24 18:30 Globulin 2.5 g/dL (1.3-4.6) 02/18/24 18:30 Urine Color Yellow (Yellow) 02/18/24 19:35 Urine Appearance Clear (CLEAR) 02/18/24 19:35 Urine pH 5.5 (5-7) 02/18/24 19:35 Ur Specific [place] 1.018 (1.005-1.030) 02/18/24 19:35 Urine Protein Negative (Negative) 02/18/24 19:35 Urine Glucose (UA) Trace (Normal) H 02/18/24 19:35 Urine Ketones Negative (Negative) 02/18/24 19:35 Urine Blood Negative (Negative) 02/18/24 19:35 Urine Nitrate Negative (Negative) 02/18/24 19:35 Urine Bilirubin Negative (Negative) 02/18/24 19:35 Urine Urobilinogen 0.2 mg/dL (Negative) 02/18/24 19:35 Ur Leukocyte Esterase Negative (Negative) 02/18/24 19:35 Amorphous Sediment Not Reportable 02/18/24 19:35 Urine Opiates Screen Negative ng/mL (Negative) 02/18/24 19:35 Ur Barbiturates Screen Negative ng/mL (Negative) 02/18/24 19:35 Ur Phencyclidine Scrn Negative ng/mL (Negative) 02/18/24 19:35 Ur Amphetamines Screen Negative ng/mL (Negative) 02/18/24 19:35 U Benzodiazepines Scrn Negative ng/mL (Negative) 02/18/24 19:35 Urine Cocaine Screen Negative ng/mL (Negative) 02/18/24 19:35 U Marijuana (THC) Screen Negative ng/mL (Negative) 02/18/24 19:35 All radiology interpretation(s) finalized by discharge Discharge Plan Discharge Patient Disposition: Home Clinical Impression: Dehydration, Syncope due to orthostatic hypotension Condition: Stable Prescriptions: Held lisinopril 10 mg Tablet 10 mg PO DAILY Hold Instructions: Until seen by PCP hydrochlorothiazide 12.5 mg tablet 12.5 mg PO DAILY Hold Instructions: Until seen by PCP No Action rosuvastatin [Crestor] 40 mg tablet 40 mg PO QPM cetirizine [Zyrtec] 10 mg Tablet 10 mg PO DAILY omeprazole 40 mg Capsule,Delayed Release(Dr/Ec) 40 mg PO DAILY metformin 1,000 mg Tablet 1,000 mg PO BID metoprolol tartrate 50 mg Tablet 50 mg PO BID duloxetine [Cymbalta] 60 mg Capsule,Delayed Release(Dr/Ec) 120 mg PO BEDTIME meloxicam 15 mg tablet 15 mg PO DAILY gabapentin 400 mg capsule 400 mg PO TID gabapentin 800 mg tablet 800 mg PO TID cyclobenzaprine 10 mg tablet 5 - 10 mg PO TID PRN (Reason: Muscle Spasm) terazosin 1 mg capsule 1 mg PO BEDTIME insulin aspart U-100 100 unit/mL (3 mL) insulin pen See Rx Instructions .ROUTE .COMPLEX Rx Instructions: NJECT 10 TO 30 UNITS THREE TIMES DAILY SUB-Q WITH MEALS, ADJUST BASED ON SLIDING SCALE, MAX DAILY DOSAGE OF 90 UNITS. Lantus Solostar U-100 Insulin 100 unit/mL (3 mL) insulin pen 40 unit SUBCUT BID Ozempic 1 mg/dose (4 mg/3 mL) pen injector 1 mg SUBCUT Q7D Rx Instructions: ON FRIDAYS Discharge Orders: Discharge ED (Routine); Ordered 02/18/24 Ordered By: Emeterio Elise Referrals: Jamie Arroyo [Primary Care Provider] - 1 week Patient Instructions: Syncope (ED), Hypotension (ED) Activity Restrictions/Additional Instructions: Please do not take your lisinopril or hydrochlorothiazide until seen by PCP. Please keep a blood pressure log of at least 2 times daily up until your appointment. Thank you for choosing [facility] for your healthcare needs today. Please realize that you were seen in the emergency department and that we are providing you with an emergency medical screening exam and this may not be a complete and all exclusive of all testing and/or medical workup we may need to determine your element or severity of your illness. It is very important that you follow-up as instructed with your primary care provider or specialist for the additional evaluation and to discuss your medical treatment plan. You may return to the emergency department should you have concerns or if your condition changes or worsens in any way. Coding Level of Care Code ED [employer] for Wendy Weeks
--- NOTE | 2024-02-18 18:37 | ECG_ITS ---
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 Measurements Intervals [place] Rate: 78 P: 54 UT: 161 QRS: -44 QRSD: 108 T: 64 QT: 347 QTc: 396 Interpretive Statements SINUS RHYTHM LEFT AXIS DEVIATION [QRS AXIS < -30] Compared to ECG 12/30/2023 00:07:46 No significant changes Electronically Signed On 02-18-2024 23:18:36 CDT by Esme Cormier M.D. [id number]
[2024-02-18 18:39] VITALS: BP 85/55; PULSE 94; O2SAT 87
[2024-02-18 19:14] LABS: Basophils # 0.1 10^3/uL (0.0-0.1); Basophils % 0.5 %; Eosinophils # 0.3 10^3/uL (0.0-0.8); Hematocrit 42.5 % (37-53); Lymphocytes # 4.4 10^3/uL (0.8-4.8); Lymphocytes % 34.6 %; Mean Corpuscular HGB Conc 32.5 g/dL (30-55); Mean Corpuscular Hemoglobin 29.3 pg (27-33); Mean Corpuscular Volume 90.2 fl (82-101); Mean Platelet Volume 10.6 fL (7.4-10.4); Monocytes # 0.9 10^3/uL (0.2-0.9); Monocytes % 7.4 %; Neutrophils # 6.93 10^3/uL (1.8-7.7); Neutrophils % 55.2 %; Nucleated Red Blood Cells % 0 %; Platelet Count 269 10^3/cmm (157-399); Red Blood Count 4.71 10^6/uL (3.85-5.65); Red Cell Distribution Width 13.2 % (12.1-15.1); White Blood Count 12.56 10^3/uL (3.29-11.43)
[2024-02-18] MEDS: sodium chloride 0.9% 1,000 ML 999 ML IV ×2 (19:22→19:47)
[2024-02-18 19:24] LABS: Alanine Aminotransferase 30 U/L (0-41); Albumin Level 4.7 g/dL (3.5-5.2); Alkaline Phosphatase 52 U/L (40-130); Aspartate Amino Transferase 32 U/L (0-40); Blood Urea Nitrogen 20 mg/dL (6-20); Calcium 10.1 mg/dL (8.5-10.5); Carbon Dioxide 22 mmol/L (22-29); Chloride 99 mmol/L (98-107); Creatinine Clr Calc Pharmacy 70.1168; Globulin 2.5 g/dL (1.3-4.6); Glomerular Filtration Rate 46.2 mL/min (90-130); Glucose 110 mg/dL (65-115); Magnesium 1.9 mg/dL (1.7-2.3); Osmolality Calculated 287 mOsm/kg (285-295); Sodium 137 mmol/L (136-145); Total Bilirubin 0.2 mg/dL (0.15-1.2); Total Protein 7.2 g/dL (6.6-8.7)
[2024-02-18 19:49] LABS: Bilirubin Urine Negative (Negative); Blood Urine Negative (Negative); Glucose Urine UA Trace (Normal); Ketones Urine Negative (Negative); Leukocyte Esterase Urine Negative (Negative); Nitrate Urine Negative (Negative); Protein Urine Negative (Negative); Specific Gravity, Urine 1.018 (1.005-1.030); Urine Appearance Clear (CLEAR); Urine Color Yellow (Yellow); Urobilinogen Urine 0.2 mg/dL (Negative); pH Urine 5.5 (5-7)
[2024-02-18 19:54] LABS: Add Urine Microscopic? YES; Bacteria Urine None Seen /hpf; Hyaline Casts Urine 9.91 /lpf; RBC Urine 0-2 /hpf (0-2); Squamous Epithelial Cell Urine 0-5 /hpf (0-5); WBC Urine 0-5 /hpf (0-5)
[2024-02-18 19:58] LABS: Amphetamines Screen Urine Negative (Negative); Barbiturates Screen Urine Negative (Negative); Benzodiazepines Screen Urine Negative (Negative); Cocaine Screen Urine Negative (Negative); Opiate Screen Urine Negative (Negative); PCP Screen Urine Negative (Negative); THC Screen Urine Negative (Negative)
[2024-02-18 21:01] VITALS: BP 128/69; PULSE 86; RESP 18; O2SAT 96
== END 2024-02-18 21:02 | disposition home or self-care (01) ==
PROVIDERS: Emergency Provider Emergency Medicine; PCP Family Medicine
DX: I95.1 Orthostatic hypotension (principal); E86.0 Dehydration; Z79.84 Long term (current) use of oral hypoglycemic drugs; Z79.4 Long term (current) use of insulin; Z79.85 Long-term (current) use of injectable non-insulin antidiabetic drugs; E11.9 Type 2 diabetes mellitus without complications; Z72.0 Tobacco use
CPT/HCPCS: 80053; 80306; 81001; 83735; 85025; 93005; 96360; 96361; 99284; J7030

== ENCOUNTER → 2024-03-17 14:43 | Outpatient (BNVA) | payer MEDICAID, SELFPAY | PROVIDERS: PCP Family Medicine; Visit Provider Internal Medicine Cardiovascular Disease | DX: R55 Syncope and collapse (principal); I47.10 Supraventricular tachycardia, unspecified | CPT/HCPCS: 93270 ==

== ENCOUNTER → 2024-05-05 09:40 | Outpatient (BNVA) | payer MEDICAID, SELFPAY | PROVIDERS: PCP Family Medicine; Visit Provider Podiatrist Foot & Ankle Surgery | DX: E11.8 Type 2 diabetes mellitus with unspecified complications (principal); E11.42 Type 2 diabetes mellitus with diabetic polyneuropathy; Z79.4 Long term (current) use of insulin; Z79.84 Long term (current) use of oral hypoglycemic drugs | CPT/HCPCS: 99203 ==

== ENCOUNTER → 2024-07-23 14:53 | Outpatient (BNVA) | payer MEDICAID, SELFPAY | PROVIDERS: PCP Family Medicine; Referring Provider Family Medicine; Visit Provider Nurse Practitioner Family | DX: L82.1 Other seborrheic keratosis (principal); L81.3 Cafe au lait spots; L85.3 Xerosis cutis; D22.39 Melanocytic nevi of other parts of face; L91.8 Other hypertrophic disorders of the skin; L29.89 Other pruritus; L53.8 Other specified erythematous conditions; D48.5 Neoplasm of uncertain behavior of skin; L57.0 Actinic keratosis | CPT/HCPCS: 11102; 17000; 17110; 99203 ==

== ENCOUNTER → 2024-10-03 08:05 | Outpatient (BNVA) | payer MEDICAID, SELFPAY | PROVIDERS: PCP Family Medicine; Visit Provider Thoracic Surgery (Cardiothoracic Vascular Surgery) | DX: E11.52 Type 2 diabetes mellitus with diabetic peripheral angiopathy with gangrene (principal); E11.621 Type 2 diabetes mellitus with foot ulcer; L97.512 Non-pressure chronic ulcer of other part of right foot with fat layer exposed; L97.411 Non-pressure chronic ulcer of right heel and midfoot limited to breakdown of skin | CPT/HCPCS: 11042; 99203 ==

== ENCOUNTER → 2024-10-09 08:07 | Outpatient (BNVA) | payer MEDICAID, SELFPAY | PROVIDERS: PCP Family Medicine; Visit Provider Thoracic Surgery (Cardiothoracic Vascular Surgery) | DX: E11.52 Type 2 diabetes mellitus with diabetic peripheral angiopathy with gangrene (principal); E11.621 Type 2 diabetes mellitus with foot ulcer; L97.512 Non-pressure chronic ulcer of other part of right foot with fat layer exposed; L97.411 Non-pressure chronic ulcer of right heel and midfoot limited to breakdown of skin | CPT/HCPCS: J9999 ==

== ENCOUNTER → 2024-10-16 09:11 | Outpatient (BNVA) | payer MEDICAID, SELFPAY | PROVIDERS: PCP Family Medicine; Visit Provider Thoracic Surgery (Cardiothoracic Vascular Surgery) | DX: E11.52 Type 2 diabetes mellitus with diabetic peripheral angiopathy with gangrene (principal); E11.621 Type 2 diabetes mellitus with foot ulcer; L97.511 Non-pressure chronic ulcer of other part of right foot limited to breakdown of skin; Z09 Encounter for follow-up examination after completed treatment for conditions other than malignant neoplasm | CPT/HCPCS: 97597 ==

== ENCOUNTER → 2024-10-23 07:59 | Outpatient (BNVA) | payer MEDICAID, SELFPAY | PROVIDERS: PCP Family Medicine; Visit Provider Thoracic Surgery (Cardiothoracic Vascular Surgery) | DX: E11.52 Type 2 diabetes mellitus with diabetic peripheral angiopathy with gangrene (principal); E11.621 Type 2 diabetes mellitus with foot ulcer; L97.511 Non-pressure chronic ulcer of other part of right foot limited to breakdown of skin | CPT/HCPCS: 97597; A6021 ==

== ENCOUNTER → 2024-10-30 08:08 | Outpatient (BNVA) | payer MEDICAID, SELFPAY | PROVIDERS: PCP Family Medicine; Visit Provider Thoracic Surgery (Cardiothoracic Vascular Surgery) | DX: E11.52 Type 2 diabetes mellitus with diabetic peripheral angiopathy with gangrene (principal); E11.621 Type 2 diabetes mellitus with foot ulcer; L97.511 Non-pressure chronic ulcer of other part of right foot limited to breakdown of skin | CPT/HCPCS: 97597 ==

== ENCOUNTER → 2024-11-06 08:30 | Outpatient (BNVA) | payer MEDICAID, SELFPAY | PROVIDERS: PCP Family Medicine; Visit Provider Thoracic Surgery (Cardiothoracic Vascular Surgery) | DX: E11.52 Type 2 diabetes mellitus with diabetic peripheral angiopathy with gangrene (principal); E11.621 Type 2 diabetes mellitus with foot ulcer; L97.511 Non-pressure chronic ulcer of other part of right foot limited to breakdown of skin | CPT/HCPCS: 97597; A6021 ==

== ENCOUNTER → 2024-11-13 08:37 | Outpatient (BNVA) | payer MEDICAID, SELFPAY | PROVIDERS: PCP Family Medicine; Visit Provider Thoracic Surgery (Cardiothoracic Vascular Surgery) | DX: E11.52 Type 2 diabetes mellitus with diabetic peripheral angiopathy with gangrene (principal); E11.621 Type 2 diabetes mellitus with foot ulcer; L97.511 Non-pressure chronic ulcer of other part of right foot limited to breakdown of skin | CPT/HCPCS: 97597 ==

== ENCOUNTER → 2024-11-20 08:31 | Outpatient (BNVA) | payer MEDICAID, SELFPAY | PROVIDERS: PCP Family Medicine; Visit Provider Thoracic Surgery (Cardiothoracic Vascular Surgery) | DX: E11.52 Type 2 diabetes mellitus with diabetic peripheral angiopathy with gangrene (principal); E11.621 Type 2 diabetes mellitus with foot ulcer; L97.511 Non-pressure chronic ulcer of other part of right foot limited to breakdown of skin | CPT/HCPCS: 97597; A6021 ==

== ENCOUNTER → 2024-12-04 08:29 | Outpatient (BNVA) | payer MEDICAID, SELFPAY | PROVIDERS: PCP Family Medicine; Visit Provider Thoracic Surgery (Cardiothoracic Vascular Surgery) | DX: E11.52 Type 2 diabetes mellitus with diabetic peripheral angiopathy with gangrene (principal); E11.621 Type 2 diabetes mellitus with foot ulcer; L97.511 Non-pressure chronic ulcer of other part of right foot limited to breakdown of skin | CPT/HCPCS: A6210 ==

== ENCOUNTER → 2024-12-11 08:29 | Outpatient (BNVA) | payer MEDICAID, SELFPAY | PROVIDERS: PCP Family Medicine; Visit Provider Thoracic Surgery (Cardiothoracic Vascular Surgery) | DX: Z09 Encounter for follow-up examination after completed treatment for conditions other than malignant neoplasm (principal); Z87.2 Personal history of diseases of the skin and subcutaneous tissue | CPT/HCPCS: 99212 ==

== ENCOUNTER → 2025-04-02 15:14 | Outpatient (BNVA) | payer MEDICAID, SELFPAY | PROVIDERS: PCP Family Medicine | DX: M79.644 Pain in right finger(s) (principal); R22.31 Localized swelling, mass and lump, right upper limb | CPT/HCPCS: 73130 ==

== ENCOUNTER 2025-04-04 10:10 | Emergency (ER) | payer MEDICAID, SELFPAY ==
--- OUTSIDE RECORDS SUMMARY | 2025-04-03 06:15 | XMS_ITS | Encounter Summary ---
Author Organization [facility] Address [address] [place] [address] Care Team Providers Care Bonding And Composite Fabricator Name Role Phone Jamie Arroyo MD Primary Care Provider [phone] Reason for Visit * Reason Comments Hand [...] st Contact Info) Description 04/03/2025 6:15 AM FLY RAIL OPERATOR - 04/03/2025 9:07 AM [facility] Emergency [facility] Emergency Medicine [address] [place] [address] Dario Hernandez MD [address] [place] [phone] Cellulitis of finger of right hand [...] worry about transportation for future doctor visits, steel pickler medication, etc.? No 2024 Housing Stability [...] on file Legal Sex Male 3:40 PM FLY RAIL OPERATOR Gender Identity Male 02/23/2023 5:43 PM CDT Sexual Orientation Lesbian or Lopez 02/23/2023 5: 43 PM CDT documented as of this encounter Last Filed Vital Signs Vital Sign Reading Time Taken Comments Blood Pressure 147/98 04/03/2025 9:00 AM FLY RAIL OPERATOR Pulse 87 04/03/2025 9:00 AM FLY RAIL OPERATOR Temperature 36 C (96.8 F) 04/03/2025 6:22 AM FLY RAIL OPERATOR Respiratory Rate 20 04/03/2025 9:00 AM FLY RAIL OPERATOR Oxygen Saturation 95% 04/03/2025 9:00 AM FLY RAIL OPERATOR Inhaled Oxygen Concentration - - Weight 100.9 kg (222 lb 6.4 oz) 04/03/2025 6:22 AM FLY RAIL OPERATOR Height 185.4 cm (6' 1 ) 04/03/2025 6:22 AM FLY RAIL OPERATOR Body Mass Index 29.34 04/03/2025 6:22 AM FLY RAIL OPERATOR documented in this encounter Discharge Instructions * Discharge Instructions* Dario Hernandez MD - 04/03/2025 8:58 AM FLY RAIL OPERATOR You are seen in the ER today [...] the ER for the treatment and evaluation. RAIL OPERATOR * Attachments The following attachments cannot be sent through Care Everywhere. * Cellulitis (Tongan) * Cephalexin (Tongan) documented in this encounter Medications at Time [...] Tablet 2 4 Blood-Glucose Meter,Continuous (Dexcom G7 Laundromat Worker)Indication s:Type 2 diabetes mellitus with hyperglycemia, without [...] SENSOR TO WIRELESSLY SEND DATA TO THE STORE PROMOTER MUST BE CHANGED EVERY 3 MONTHS 1 Each 3 4 Blood-Glucose Meter,Continuous (Dexcom G6 Laundromat Worker) Use to monitor blood glucose continuously throughout the day. 1 Each 5 3 oxygen home deliveryIndications :Nocturnal hypoxemia Home Oxygen Concentrator yes at , 2 L/M Sleep, Delivery Device: Nasal CannulaPortability : no, May provide device best for patient needs(E system,home fill, conserving device)Length of Need: 99 months 1 Each 0 1 naloxone (NARCAN) 4 mg/spray [place], Non-Aerosol EMERGENCY USE ONLY: Administer 1 spray [...] Department by private car. 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 Chief Complaint Patient presents with Hand [...] any weapons or firearms at this time RAIL OPERATOR * Dario Hernandez MD - 04/03/2025 6:13 [...] by swelling. 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 PAST MEDICAL HISTORY REVIEWED [...] 04/03/2025899 Date/Time Order Dose Route Action 04/03/2025718 FLY RAIL OPERATOR ketorolac (TORADOL) injection 15 mg 15 mg IV Given 04/03/2025808 FLY RAIL OPERATOR iopamidoL (ISOVUE-300) 61% injection (single-use vial) 100 mL 100 mL IV Contrast Given 04/03/2025808 FLY RAIL OPERATOR sodium chloride bacteriostatic 0.9 % injection 10 [...] [L03.011] Dario Hernandez MD 04/03/2025 8:57 AM RAIL OPERATOR documented in this encounter Miscellaneous Notes * [...] ER notes. 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 RAIL OPERATOR documented in this encounter Plan of Treatment Upcoming Encounters Date Type Department Care Team (Late st Contact Info) Description 07/03/2025 4:20 PM FLY RAIL OPERATOR Office Visit [address] [phone] Jamie Arroyo MD [address] [phone] documented as of this encounter Procedures Procedure Name Priority Date/Time Associated Diagnosis Comments CT HAND W CONTRAST RIGHT Stat 04/03/2025 8:09 AM FLY RAIL OPERATOR XR HAND 3+ VW RIGHT Stat 04/03/2025 7 :33 AM FLY RAIL OPERATOR CBC WITH DIFFERENTIAL Stat 04/03/2025 7:10 AM FLY RAIL OPERATOR COMPREHENSIVE METABOLIC PANEL Stat 04/03/2025 7:10 AM FLY RAIL OPERATOR documented in this encounter Results * CT HAND W CONTRAST RIGHT (04/03/2025 8:09 AM FLY RAIL OPERATOR) Anatomical Region Laterality Modality Wrist / Hand Computed Tomogra phy 04/03/2025 8:10 AM FLY RAIL OPERATOR Impressions 04/03/2025 8:18 AM FLY RAIL OPERATOR IMPRESSION: Please see below. Exam: CT HAND [...] HAND 3+ VW RIGHT (04/03/2025 7:33 AM FLY RAIL OPERATOR) Anatomical Region Laterality Modality Wrist / Hand Computed Radiogr aphy 04/03/2025 7:34 AM FLY RAIL OPERATOR Impressions 04/03/2025 10:12 AM FLY RAIL OPERATOR IMPRESSION: Please see below. Exam: XR HAND [...] (ABNORMAL) COMPREHENSIVE METABOLIC PANEL (04/03/2025 7:10 AM FLY RAIL OPERATOR) SODIUM 136 136 - 145 mmol/L 04/03/2025 7:31 AM [facility] POTASSIUM 4.1 3.5 - 5.1 mmol/L 04/03/2025 7:31 AM [facility] CHLORIDE 102 98 - 107 mmol/L 04/03/2025 7:31 AM [facility] CO2 22 22 - 29 mmol/L 04/03/2025 7:31 AM [facility] CALCIUM 8.9 8.6 - 10.0 mg/dL 04/03/2025 7:31 AM [facility] BUN 10 6 - 20 mg/dL 04/03/2025 7:31 AM [facility] CREATININE 0.96 0.67 - 1.17 mg/dL 04/03/2025 7:31 AM [facility] GLUCOSE 237(H) 74 - 99 mg/dL 04/03/2025 7:31 AM [facility] TOTAL PROTEIN 6.4(L) 6.6 - 8.7 g/dL 04/03/2025 7:31 AM [facility] ALBUMIN 4.3 3.5 - 5.2 g/dL 04/03/2025 7:31 AM [facility] BILIRUBIN TOTAL 0.2 0.0 - 1.2 mg/dL 04/03/2025 7:31 AM [facility] ALKALINE PHOSPHATASE 46 40 - 129 U/L 04/03/2025 7:31 AM [facility] AST 30 0 - 50 U/L 04/03/2025 7:31 AM [facility] ALT 36 0 - 50 U/L 04/03/2025 7:31 AM [facility] GFR >60 >=60 mL/min/1.7 3 sq meter 04/03/2025 7:31 AM [facility] Comment:eGFR calculated with 2020 CKD-EPI equation. Vegetarian diet, extremely high or low muscle mass, and may affect results. Cystatin C with Glomerular Filtration Rate is a suitable alternative for these patients. ANION GAP 12 5 - 20 mmol/L 04/03/2025 7:31 AM [facility] Blood Venipuncture / Unknown 04/03/2025 7:10 AM FLY RAIL OPERATOR 04/03/2025 7:13 AM FLY RAIL OPERATOR Dario Hernandez MD CHEMISTRY ORDERABLES Final Result [facility] CLIA # [id number] [address] [place] [address] * (ABNORMAL) CBC WITH DIFFERENTIAL (04/03/2025 7:10 AM [facility]) WBC 10.2(H) 4.2 - 9.1 K/uL 04/03/2025 7:23 AM [facility] RBC 4.37(L) 4.63 - 6.08 M/uL 04/03/2025 7:23 AM [facility] HEMOGLOBIN 12.5(L) 13.7 - 17.5 g/dL 04/03/2025 7:23 AM [facility] HEMATOCRIT 37.1(L) 40.1 - 51.0 % 04/03/2025 7:23 AM [facility] MCV 84.9 79.0 - 92.2 fL 04/03/2025 7:23 AM [facility] MCH 28.6 25.7 - 32.2 pg 04/03/2025 7:23 AM [facility] MCHC 33.7 32.3 - 36.5 g/dL 04/03/2025 7:23 AM [facility] RDW 13.2 11.0 - 14.5 % 04/03/2025 7:23 AM [facility] RDW-STDEV 41.2 36.9 - 56.9 fL 04/03/2025 7:23 AM [facility] PLATELETS 178 130 - 400 K/uL 04/03/2025 7:23 AM [facility] MPV 10.7 10.0 - 14.8 fL 04/03/2025 7:23 AM [facility] NEUTROPHILS 66 34 - 68 % 04/03/2025 7:23 AM [facility] LYMPHOCYTES 20(L) 22 - 53 % 04/03/2025 7:23 AM [facility] MONOCYTES 11 5 - 12 % 04/03/2025 7:23 AM [facility] EOSINOPHILS 3 1 - 7 % 04/03/2025 7:23 AM [facility] BASOPHILS 0 0 - 1 % 04/03/2025 7:23 AM [facility] IMMATURE GRANULOCYTES 0 % 04/03/2025 7:23 AM [facility] NEUTROPHIL ABSOLUTE 6.79(H) 1.78 - 5.38 K/uL 04/03/2025 7:23 AM [facility] LYMPHOCYTE ABSOLUTE 1.99 1.20 - 3.40 K/uL 04/03/2025 7:23 AM [facility] MONOCYTE ABSOLUTE 1.10(H) 0.30 - 0.82 K/uL 04/03/2025 7:23 AM [facility] EOSINOPHIL ABSOLUTE 0.29 0.04 - 0.54 K/uL 04/03/2025 7:23 AM [facility] BASOPHILS ABSOLUTE 0.03 0.01 - 0.08 K/uL 04/03/2025 7:23 AM [facility] IMMATURE GRANULOCYTES ABSOLUTE 0.02 K/uL 04/03/2025 7:23 AM [facility] Blood Venipuncture / Unknown 04/03/2025 7:10 AM FLY RAIL OPERATOR 04/03/2025 7:13 AM FLY RAIL OPERATOR Dario Hernandez MD HEMATOLOGY ORDERABLES Final Result [facility] # [id number] [address] [place] [address] documented in this encounter Visit Diagnoses [...] 0809, Routine Contrast Given 04/03/2025 8:09 AM FLY RAIL OPERATOR 100 mL ketorolac (TORADOL) injection 15 mg 15 mg, IV, ONE TIME ONLY, 1 dose, On Sun04/03/25 at 0715, Routine Given 04/03/2025 7:19 AM FLY RAIL OPERATOR 15 mg sodium chloride bacteriostatic 0.9 % injection 10 mL 10 mL, IV, SEE ADMIN INSTRUCTIONS, Starting on Sun04/03/25 at 0808, Until Sun04/03/25 at 1120, Routine Given 04/03/2025 8:09 AM FLY RAIL OPERATOR 10 mL documented in this encounter Active and Recently Administered Medications Times are shown in FLY RAIL OPERATOR. Scheduled Medication Order 04/01/2025 04/02/2025 04/03/2025 iopamidoL [...] Melissa) documented in this encounter Care Teams Bonding And Composite Fabricator Relationship Specialty Start Date End Date Jamie Arroyo MD [address] [phone] PCP - General 08/06/20 documented as of this encounter
[2025-04-04 10:14] VITALS: BP 139/89; PULSE 87; RESP 16; TEMP 37.2; O2SAT 98; BMI 29.7
--- OUTSIDE RECORDS SUMMARY | 2025-04-04 10:15 | XMS_ITS | Encounter Summary ---
Author Organization [facility] Address [address] [place] [address] Care Team Providers Care Investigation Division Lieutenant Name Role Phone Jamie Arroyo MD Primary Care Provider [phone] Encounter Details Date Type Department Care Team (Late st Contact Info) Description 10/29/2017 Lab Requisition [facility] General Laboratory Services Driver [address] [place] [address] Miguelina Tolliver MD [address] [place] [address] Social History Tobacco Use Types Packs/Day Years Used Date Smoking Tobacco: Never Assessed Sex and Gender Information Value Date Recorded Sex Assigned at Not on file Legal Sex Male 9:13 AM CDT Gender Identity Not on file Sexual Orientation Not on file documented as of this encounter Plan of Treatment Not on file documented as of this encounter Procedures Procedure Name Priority Date/Time Associated Diagnosis Comments CBC WITH DIFFERENTIAL Routine 10/29/2017 8:00 PM CDT COMPREHENSIVE METABOLIC PANEL Routine 10/29/2017 8:00 PM CDT documented in this encounter Results * (ABNORMAL) CBC WITH DIFFERENTIAL (10/29/2017 8:00 PM CDT) WBC 10.1 K/uL 10/30/2017 12:24 AM CDT [facility] RBC 5.33 M/uL 10/30/2017 12:24 AM [facility] HEMOGLOBIN 16.2 g/dL 10/30/2017 12:24 AM [facility] HEMATOCRIT 48.1 % 10/30/2017 12:24 AM [facility] MCV 90.2 fL 10/30/2017 12:24 AM [facility] MCH 30.4 pg 10/30/2017 12:24 AM [facility] MCHC 33.7 g/dL 10/30/2017 12:24 AM [facility] RDW 13.7 11.0 - 14.5 % 10/30/2017 12:24 AM [facility] RDW-STDEV 45.0 36.9 - 56.9 fL 10/30/2017 12:24 AM [facility] PLATELETS 184 150 - 450 K/uL 10/30/2017 12:24 AM [facility] MPV 12.1 10.0 - 14.8 fL 10/30/2017 12:24 AM [facility] NEUTROPHILS 53 % 10/30/2017 12:24 AM [facility] LYMPHOCYTES 36 % 10/30/2017 12:24 AM [facility] MONOCYTES 8 % 10/30/2017 12:24 AM [facility] EOSINOPHILS 3 % 10/30/2017 12:24 AM [facility] BASOPHILS 0 0 - 1 % 10/30/2017 12:24 AM [facility] IMMATURE GRANULOCYTES 0 % 10/30/2017 12:24 AM [facility] NEUTROPHIL ABSOLUTE 5.34 K/uL 10/30/2017 12:24 AM [facility] LYMPHOCYTE ABSOLUTE 3.60(H) 1.20 - 3.40 K/uL 10/30/2017 12:24 AM [facility] MONOCYTE ABSOLUTE 0.85 K/uL 018 12:24 AM [facility] EOSINOPHIL ABSOLUTE 0.29 K/uL 10/30/2017 12:24 AM [facility] BASOPHILS ABSOLUTE 0.03 0.01 - 0.08 K/uL 10/30/2017 12:24 AM [facility] IMMATURE GRANULOCYTES ABSOLUTE 0.03 K/uL 10/30/2017 12:24 AM [facility] Blood Collection / Unknown 10/29/2017 8:00 PM CDT 10/29/2017 11:25 PM CDT us Miguelina Tolliver MD HEMATOLOGY ORDERABLES Final Resu lt [facility] CLIA # [id number] [address] [place] [address] * (ABNORMAL) COMPREHENSIVE METABOLIC PANEL (10/29/2017 8:00 PM CDT) SODIUM 135(L) 136 - 145 mmol/L 10/30/2017 12:24 AM [facility] POTASSIUM 3.8 3.5 - 5.1 mmol/L 10/30/2017 12:24 AM [facility] CHLORIDE 91(L) 98 - 107 mmol/L 10/30/2017 12:24 AM [facility] CO2 22 22 - 29 mmol/L 10/30/2017 12:24 AM [facility] CALCIUM 10.0 8.6 - 10.0 mg/dL 10/30/2017 12:24 AM [facility] BUN 11 6 - 20 mg/dL 10/30/2017 12:24 AM [facility] CREATININE 0.69 mg/dL 10/30/2017 12:24 AM [facility] GLUCOSE 196(H) 74 - 106 mg/dL 10/30/2017 12:24 AM [facility] TOTAL PROTEIN 8.0 6.6 - 8.7 g/dL 10/30/2017 12:24 AM [facility] ALBUMIN 5.2 3.5 - 5.2 g/dL 10/30/2017 12:24 AM [facility] BILIRUBIN TOTAL 0.4 0.0 - 1.2 mg/dL 10/30/2017 12:24 AM [facility] ALKALINE PHOSPHATASE 68 U/L 10/30/2017 12:24 AM CDT [facility] AST 29 U/L 10/30/2017 12:24 AM [facility] ALT 46 U/L 10/30/2017 12:24 AM [facility] GFR >=60 mL/min/1.7 3 sq meter 10/30/2017 12:24 AM [facility] Comment: eGFR has not been validated for use in the elderly (> 70 years of age), women, patients with serious co-morbid conditions, or persons with extremes of body size or muscle mass and should also be interpreted with caution in patients with acute kidney failure, dialysis dependent patients, patients reporting exceptional dietary intake (e.g. vegetarian diet, high protein diets, creatine supplementation), and patients with severe liver disease. Based on National Kidney Disease Education Program If patient is , please refer to the GFR result. GFR, >=60 mL/min/1.7 3 sq meter 10/30/2017 12:24 AM [facility] ANION GAP 22(H) 12 - 20 mmol/L 10/30/2017 12:24 AM [facility] Blood Collection / Unknown 10/29/2017 8:00 PM CDT 10/29/2017 11:25 PM CDT us Miguelina Tolliver MD CHEMISTRY ORDERABLES Final Resul t [facility] CLIA # [id number] [address] [address] documented in this encounter Visit Diagnoses Not on filedocumented in this encounter Additional Health Concerns Infection Onset Date Last Indicated Resolved Time R/O C. diff 01/09/2020 01/09/2020 01/09/2020 12:2 2 PM CDT R/O COVID-19 02/04/2020 02/05/2020 02/07/2020 3:02 AM CDT documented as of this encounter Care Teams Investigation Division Lieutenant Relationship Specialty Start Date End Date Jamie Arroyo MD [address] [phone] PCP - General Family Practice 10/23/19 documented as of this encounter
--- OUTSIDE RECORDS SUMMARY | 2025-04-04 10:15 | XMS_ITS | Encounter Summary ---
Author Organization [facility] Address [address] [place] [address] Care Team Providers Care Medical Officer Psychiatry Name Role Phone Jamie Arroyo MD Primary Care Provider [phone] Encounter Details Date Type Department Care Team (Late st Contact Info) Description 07/21/2019 Lab Requisition [facility] Laboratory Services [place] [address] [place] [address] Rickie Garrett PA [address] [place] [phone] Social History Tobacco Use Types Packs/Day Years Used Date Smoking Tobacco: Former Cigarettes Smokeless Tobacco: Never Comments:On Chantix, trying to quit. Alcohol Use Standard Drinks/Week Comments Yes 0 (1 standard drink = 0.6 oz pur e alcohol) Sex and Gender Information Value Date Recorded Sex Assigned at Not on file Legal Sex Male 9:13 AM CDT Gender Identity Not on file Sexual Orientation Not on file documented as of this encounter Plan of Treatment Not on file documented as of this encounter Procedures Procedure Name Priority Date/Time Associated Diagnosis Comments COMPREHENSIVE METABOLIC PANEL Routine 07/21/2019 9:25 PM FORM COVERER documented in this encounter Results * (ABNORMAL) COMPREHENSIVE METABOLIC PANEL (07/21/2019 9:25 PM FORM COVERER) SODIUM 137 136 - 145 mmol/L 07/22/2019 3:14 AM FORM COVERER [facility] POTASSIUM 4.0 3.5 - 5.1 mmol/L 07/22/2019 3:14 AM [facility] CHLORIDE 100 98 - 107 mmol/L 07/22/2019 3:14 AM [facility] CO2 23 22 - 29 mmol/L 07/22/2019 3:14 AM [facility] CALCIUM 9.3 8.6 - 10.0 mg/dL 07/22/2019 3:14 AM [facility] BUN 9 6 - 20 mg/dL 07/22/2019 3:14 AM [facility] CREATININE 0.71 0.67 - 1.17 mg/dL 07/22/2019 3:14 AM [facility] GLUCOSE 245(H) 74 - 99 mg/dL 07/22/2019 3:14 AM [facility] TOTAL PROTEIN 6.8 6.6 - 8.7 g/dL 07/22/2019 3:14 AM [facility] ALBUMIN 4.5 3.5 - 5.2 g/dL 07/22/2019 3:14 AM [facility] BILIRUBIN TOTAL 0.2 <=1.2 mg/dL 07/22/2019 3:14 AM [facility] ALKALINE PHOSPHATASE 56 40 - 129 U/L 07/22/2019 3:14 AM [facility] AST 31 10 - 50 U/L 07/22/2019 3:14 AM [facility] ALT 43 10 - 50 U/L 07/22/2019 3:14 AM [facility] GFR >60 >=60 mL/min/1.7 3 sq meter 07/22/2019 3:14 AM [facility] Comment: eGFR has not been validated for [...] please refer to the GFR result. GFR, >60 >=60 mL/min/1.7 3 sq meter 07/22/2019 3:14 AM FORM COVERER [facility] ANION GAP 14 12 - 20 mmol/L 07/22/2019 3:14 AM FORM COVERER [facility] Blood Collection / Unknown 07/21/2019 9:25 PM FORM COVERER 07/22/2019 2:12 AM FORM COVERER Rickie CORTEZ CHEMISTRY ORDERABLES Final R esult [facility] CLIA # [id number] [address] [address] documented in this encounter Visit Diagnoses Not on filedocumented in this encounter Additional Health Concerns Infection Onset Date Last Indicated Resolved Time R/O C. diff 01/09/2020 01/09/2020 01/09/2020 12:2 2 PM CDT R/O COVID-19 02/04/2020 02/05/2020 02/07/2020 3:02 AM CDT documented as of this encounter Care Teams Medical Officer Psychiatry Relationship Specialty Start Date End Date Jamie Arroyo MD [address] [phone] PCP - General Family Practice 10/23/19 documented as of this encounter
--- OUTSIDE RECORDS SUMMARY | 2025-04-04 10:15 | XMS_ITS | Encounter Summary ---
Author Organization [facility] Address [address] [place] [address] Care Team Providers Care Electrician Station Assistant Name Role Phone Jamie Arroyo MD Primary Care Provider [phone] Reason for Referral * Radiology Services (Routine) - Closed Specialty Diagnoses / Procedures Referred By Contac t Referred To Contact Cardiology Diagnoses Unstable angina (CMS/HCC) ASHD (arteriosclerotic heart disease) Procedures CL LT HEART CATHETERIZATION Dallas Waller MD Phone: tel: fax: [facility] Cardiac Industrial Equipment Mechanic [facility] [place] [address] Phone: tel: fax: Referral ID Status Reason Start Date Expiration Date Visits Re quested Visits Authorized [id number] Closed 01/14/2019 02/14/2020 1 1 Encounter Details Date Type Department Care Team (Late st Contact Info) Description 01/14/2019 Ancillary Orders [facility] Cardiac Industrial Equipment Mechanic [address] [place] [address] Dallas Waller MD [address] [place] [id number] Unstable angina (CMS/HCC); ASHD (arteriosclerotic heart disease) Social History Tobacco Use Types Packs/Day Years Used Date Smoking Tobacco: Every Day Cigarettes Alcohol Use Standard Drinks/Week Comments Yes 0 (1 standard drink = 0.6 oz pur e alcohol) Sex and Gender Information Value Date Recorded Sex Assigned at Not on file Legal Sex Male 9:13 AM CDT Gender Identity Not on file Sexual Orientation Not on file documented as of this encounter Plan of Treatment Not on file documented as of this encounter Results * CL LT HEART CATHETERIZATION (01/20/2019 10:12 AM CDT) 01/20/2019 9:44 AM CDT Impressions [facility] - 01/20/2019 1:16 PM CDT : 1. Patent epicardial coronary arteries without any significant obstructive CAD. 2. Elevated LVEDP of 20 mmHg without aortic stenosis. 3. Aggressive medical therapy is recommended. PCG/jaw - transcribed in [facility] - 01/20/2019 1:16 PM CDT LEFT HEART CATHETERIZATION, CORONARY ANGIOGRAM REPORT: NAME OF THE DIRECTOR COMMERCIAL SALES: Dallas Waller MD, furnace unloader. NAME OF PROCEDURE PERFORMED: 1. Left heart catheterization. 2. Selective right and left [place] coronary angiography. INDICATION OF THE PROCEDURE: Mr. Panda Gonzalez is a very pleasant gentleman with a history of familial hypercholesterolemia, premature coronary artery disease in the family, and hypertension who presents to my office with unstable angina. In view of this, we proceeded with elective coronary angiogram with possible PCI. DETAILS OF THE PROCEDURE: CONSENT: Risks, benefits, and alternatives to the procedure were explained to the patient by me in detail. Risk of access site complications, bleeding, arterial dissection, , contrast nephropathy, radiation hazards, and stroke were explained to the patient who verbalized understanding of these conditions and consented to the procedure. Written informed consent has been placed in the chart as well. The patient was brought to the specialist employee labor relations in a fasting, nonsedated state. After giving the patient a total of 50 mcg of fentanyl and 2 mg of Versed, we achieved moderate conscious sedation which lasted from 10:03 AM to 10:12 AM. Respiratory, hemodynamic, and neurological parameters were monitored through the procedure by the operators and by the specialist employee labor relations staff. The patient was prepped and draped in sterile fashion. We exposed the right radial artery which was then prepped with 1% chlorhexidine and instilled a total of 3 mL of 1% lidocaine for good local anesthesia. We then gained access into the right radial artery using a micropuncture needle and modified Seldinger technique to insert a 6-[place] Slender sheath with good blood flow return. This was followed by introduction of a Beltran 5-[place] diagnostic catheter for selective right and left [place] coronary angiography as well as LV pressure assessment over a 0.035 exchange-length J-wire. DETAILS OF CORONARY ANGIOGRAM: 1. LEFT MAIN: The left main arises normally from the left coronary cusp and is free from angiographic evidence of disease. Distally it trifurcates into a left circumflex artery, ramus intermedius, and a left anterior descending artery. 2. LEFT CIRCUMFLEX ARTERY: The left circumflex artery in its proximal, mid, and distal portion is free from disease. It gives rise to a larger obtuse marginal vessel with minor plaquing, but no significant obstructive stenosis is noted. Left main also gives rise to a large bifurcating ramus vessel with minor plaquing in both of these branches without any significant obstructive stenosis. 3. LEFT ANTERIOR DESCENDING ARTERY: The left anterior descending artery in its proximal, mid, and distal portion is free from disease. It gives rise to a small diagonal vessel with minor plaquing, but no significant obstructive disease is noted. 4. RIGHT CORONARY ARTERY: The right coronary artery arises normally from the right coronary cusp. In its proximal, mid, and distal portion, it is free from disease. It bifurcates into a small right PDA and a large right PLV system, both of which have minor plaquing, but no significant obstructive disease is noted. LV HEMODYNAMICS: LV systolic blood pressure is 140 mmHg. LVEDP was 22 mmHg. There was no gradient across the aortic valve on catheter pullback. TOTAL CONTRAST: 40 mL TOTAL AIR KERMA: 337 mGy FLUOROSCOPY TIME: 1.3 minutes TOTAL BLOOD LOSS: 5 mL. TR Band was used for hemostasis. The patient tolerated the procedure very well without any evidence of hemodynamic complications and was transferred out of the specialist employee labor relations in stable condition without any chest pain. FINAL us Dallas Waller MD FLUOROSCOPY ORDER MINDY Final Result [facility] documented in this encounter Visit Diagnoses Diagnosis Unstable angina (CMS/HCC) Intermediate coronary syndrome ASHD (arteriosclerotic heart disease) Coronary atherosclerosis of unspecified type of vessel, [place] or graft Other forms of angina pectoris- Primary Unstable angina (CMS/HCC) Intermediate coronary syndrome ASHD (arteriosclerotic heart disease) Coronary atherosclerosis of unspecified type of vessel, [place] or graft documented in this encounter Additional Health Concerns Infection Onset Date Last Indicated Resolved Time R/O C. diff 01/09/2020 01/09/2020 01/09/2020 12:2 2 PM CDT R/O COVID-19 02/04/2020 02/05/2020 02/07/2020 3:02 AM CDT documented as of this encounter Care Teams Electrician Station Assistant Relationship Specialty Start Date End Date Jamie Arroyo MD [address] [facility] [address] [place] [address] PCP - General Family Practice 10/23/19 documented as of this encounter
--- OUTSIDE RECORDS SUMMARY | 2025-04-04 10:15 | XMS_ITS | Encounter Summary ---
Author Organization [facility] Address [address] [place] [address] Care Team Providers Care Dice Person Name Role Phone Jamie Arroyo MD Primary Care Provider [phone] Encounter Details Date Type Department Care Team (Late st Contact Info) Description 11/20/2017 Lab Requisition [facility] [place] [address] [place] [address] Miguelina Tolliver MD [address] [place] [address] Social History Tobacco Use Types [...] Procedure Name Priority Date/Time Associated Diagnosis Comments HPV HIGH RISK DETECTION Routine 11/19/2017 5:00 PM CDT documented in this encounter Results * HPV HIGH RISK DETECTION (11/19/2017 5:00 PM CDT) HPV HIGH RISK DNA DETECTION Not Detected Not detected 12/10/2017 9:45 AM CDT [facility] Genital Collection / Unknown 11/19/2017 5:00 PM CDT 11/20/2017 1:27 PM CDT us Miguelina Tolliver MD PATHOLOGY/CYTOLOGY ORDERABLES Fi nal Result [facility] documented in this encounter Visit Diagnoses Not on filedocumented in this encounter Additional Health Concerns Infection Onset Date Last Indicated Resolved Time R/O C. diff 01/09/2020 01/09/2020 01/09/2020 12:2 2 PM CDT R/O COVID-19 02/04/2020 02/05/2020 02/07/2020 3:02 AM CDT documented as of this encounter Care Teams Dice Person Relationship Specialty Start Date End Date Jamie Arroyo MD [address] [address] PCP - General Family Practice 10/23/19 documented as of this encounter
--- OUTSIDE RECORDS SUMMARY | 2025-04-04 10:15 | XMS_ITS | Clinical Summary ---
Author Organization [facility] Address [address] [place] [address] Phone Care Team Providers Care Refrigeration Service Inspector Name Role Phone Jamie Arroyo MD Primary Care Provider [phone] Allergies Active Allergy Reactions Criticality Noted Date Comments Atorvastatin Muscle Pain 11/29/2017 Medications naloxone (NARCAN) 4 mg/spray [place], Non-Aerosol EMERGENCY USE ONLY: Administer 1 spray (4 mg) in one nostril one time. May repeat in alternating nostrils every 2-3 min until responsive or EMS arrives. 2 Each 3 06/26/19 21 Active cetirizine (ZyrTEC) 10 mg tablet Take 10 mg by mouth daily. 01/15/20 19 Active nitroglycerin (NITROSTAT) 0.4 mg Tablet, Sublingual Place 1 Tablet (0.4 mg) under tongue every 5 minutes as needed for Chest Pain (If no relief after 2nd nitro, call 911.). 25 Tablet 3 01/15/20 19 Active oxygen home deliveryIndicatio ns:Nocturnal hypoxemia Home Oxygen Concentrator yes at , 2 L/M Sleep, Delivery Device: Nasal CannulaPortabilit y: no, May provide device best for patient needs(E system,home fill, conserving device)Length of Need: 99 months 1 Each 0 10/02/19 21 Active Blood-Glucose Meter,Continuous (Dexcom G6 Silverware Washer) Use to monitor blood glucose continuously throughout the day. 1 Each 5 08/28/19 23 Active Blood-Glucose Transmitter (Dexcom G6 Transmitter) Device FASTEN ON TOP OF THE SENSOR TO WIRELESSLY SEND DATA TO THE AUTOMOBILE CLUB TRAVEL COUNSELOR MUST BE CHANGED EVERY 3 MONTHS 1 Each 3 07/30/19 24 Active ALPRAZolam (Xanax) 0.25 mg tabletIndications :Bereavement Take 1 Tablet (0.25 mg) by mouth 2 times daily as needed for Anxiety. 10 Tablet 09/24/19 24 Active Blood-Glucose Sensor (Dexcom G6 Sensor) Device Discreetly worn under clothing to measure glucose levels just underneath the skin. Must change sensor every 10 days. 1 Each 12/25/19 24 Active Blood-Glucose Meter,Continuous (Dexcom G7 Silverware Washer)Indicati ons:Type 2 diabetes mellitus with hyperglycemia, without long-term current use of insulin (CMS/HCC) Use to monitor blood glucose continuously throughout the day 1 Each 01/22/20 24 Active cyclobenzaprine (FLEXERIL) 10 mg tablet TAKE 1/2 TO 1 (ONE-HALF TO ONE) TABLET BY MOUTH THREE TIMES DAILY NEEDED 60 Tablet 2 01/29/20 24 Active insulin lispro (HumaLOG KwikPen Insulin) 100 unit/mL pen syringe INJECT 10-30 UNITS SUB-Q THREE TIMES DAILY WITH MEALS ADJUST BASED ON SLIDING SCALE MAX DAILY DOSAGE OF 90 UNITS 30 mL 05/13/20 24 Active metFORMIN (GLUCOPHAGE) 1,000 mg tabletIndications :Type 2 diabetes mellitus with hyperglycemia, without long-term current use of insulin (CMS/HCC) Take 1 Tablet (1,000 mg) by mouth 2 times daily with meals. 200 Tablet 3 05/15/20 24 Active terazosin (HYTRIN) 1 mg capsuleIndication s:Benign prostatic hyperplasia with nocturia Take 1 Capsule (1 mg) by mouth daily at bedtime. 100 Capsule 3 05/15/20 24 Active gabapentin (NEURONTIN) 800 mg tabletIndications :Type 2 diabetes mellitus with hyperglycemia, without long-term current use of insulin (CMS/HCC) Take 1 Tablet (800 mg) by mouth 3 times daily. 90 Tablet 07/14/19 25 Active gabapentin (NEURONTIN) 400 mg capsule Take 1 Capsule (400 mg) by mouth 3 times daily. 90 Capsule 07/14/19 25 Active TechLITE Pen Needle 32 gauge x 5/32 Needle USE DIRECTED TO INJECT INSULIN 4 TIMES DAILY 400 Each 3 11/19/19 25 Active diclofenac sodium (VOLTAREN) 50 mg Tablet, Delayed Release (E.C.)Indications :Generalized osteoarthritis of multiple sites Take 1 Tablet (50 mg) by mouth 2 times daily with meals. Replaces meloxicam 60 Tablet 5 11/22/19 25 Active omeprazole (PriLOSEC) 40 mg Capsule, Delayed Release(E.C.)Gina cations:Gastroeso phageal reflux disease without esophagitis Take 1 Capsule (40 mg) by mouth daily. 100 Capsule 2 01/17/20 25 Active rosuvastatin (CRESTOR) 40 mg tabletIndications :Type 2 diabetes mellitus with hyperglycemia, without long-term current use of insulin (CMS/HCC),Mixed hyperlipidemia Take 1 Tablet (40 mg) by mouth daily. 100 Tablet 2 01/17/20 25 Active DULoxetine (CYMBALTA) 60 mg Capsule, Delayed Release(E.C.)Gina cations:Recurrent major depressive disorder, in full remission Take 2 Capsules (120 mg) by mouth daily at bedtime. 200 Capsule 2 01/17/20 25 Active Blood-Glucose Sensor (Dexcom G7 Sensor) DeviceIndications :Type 2 diabetes mellitus with hyperglycemia, without long-term current use of insulin (CMS/HCC) Discreetly worn under clothing to measure glucose levels just underneath the skin. Must change sensor every 10 days 4 Each 02/25/20 25 Active Lantus Solostar U-100 Insulin 100 unit/mL (3 mL) solution for injectionIndicati ons:Type 2 diabetes mellitus with diabetic polyneuropathy, without long-term current use of insulin (CMS/HCC) Inject 40 Units by subcutaneous injection 2 times daily. 30 mL 11 03/05/20 25 Active testosterone cypionate (DEPO-TESTOSTERON E) 200 mg/mL OilIndications:Pr imary hypogonadism in male Inject 1 mL (200 mg) by intramuscular injection every 28 days. 1 mL 2 03/05/20 25 Active semaglutide (Ozempic) 2 mg/dose (8 mg/3 mL) Pen InjectorIndicatio ns:Type 2 diabetes mellitus with hyperglycemia, without long-term current use of insulin (CMS/HCC) Inject 2 mg by subcutaneous injection every 7 days. 9 mL 1 03/18/20 25 Active metoprolol tartrate 75 mg TabletIndications :Benign hypertension,SVT (supraventricular tachycardia) Take 75 mg by mouth 2 times daily. 200 Tablet 2 03/18/20 25 Active cephALEXin (KEFLEX) 500 mg capsule Take 1 Capsule (500 mg) by mouth 4 times daily for 7 days. 28 Capsule 04/03/20 25 025 Active metoprolol tartrate 75 mg TabletIndications :Benign hypertension,SVT (supraventricular tachycardia) Take 75 mg by mouth 2 times daily. 180 Tablet 3 04/23/20 24 025 Disconti nued(Reo rder) semaglutide (Ozempic) 2 mg/dose (8 mg/3 mL) Pen InjectorIndicatio ns:Type 2 diabetes mellitus with hyperglycemia, without long-term current use of insulin ([facility]) INJECT 2 MG SUBCUTANEOUSLY ONCE A WEEK 9 mL 1 10/08/19 025 Disconti nued(Reo rder) Active Problems Problem Noted Date Diagnosed Date Primary hypogonadism in male 03/05/2025 Benign prostatic hyperplasia with nocturia 07/04 Hammertoe of right foot 12/28/2021 LVH (left ventricular hypertrophy) 11/18/2020 Diastolic dysfunction 11/18/2020 Chronic respiratory failure with hypoxia 021 CYNDI (obstructive sleep apnea) 08/19/2020 Fatty liver 02/04/2020 Gastroesophageal reflux disease without esophagi tis 10/23/2019 Migraines 10/23/2019 Mixed hyperlipidemia 10/23/2019 Recurrent major depressive disorder, in full rem ission 10/23/2019 Generalized osteoarthritis of multiple sites History of pulmonary embolism 02/11/2019 Nodule of right lung 02/11/2019 Type 2 diabetes mellitus wit h diabetic polyneuropathy, without long-term current use of insulin 11/29/2017 Oropharyngeal lesion 11/29/2017 Benign hypertension 11/29/2017 Resolved Problems Problem Noted Date Diagnosed Date Resolved Date Stable angina 02/24/2020 08/19/2020 Current smoker 11/29/2017 03/28/2023 Seizure 08/19/2020 Encounters Date Type Department Care Team Description 04/03/2025 6:15 AM WELT TREATER - 04/03/2025 9:07 AM [facility] Emergency [facility] Emergency Medicine [address] [place] [phone] Dario Hernandez MD Cellulitis of finger of right hand (Primary Dx) Discharge Disposition: Home or Self Care 04/03/2025 Travel 03/19/[address] [place] [address] Jamie Arroyo MD Appointment Correction 03/18/[address] [place] [address] Liza Herrera FNP Benign hypertension; SVT (supraventricular tachycardia) 03/18/[address] [place] [address] Liza Herrera FNP Type 2 diabetes mellitus with hyperglycemia, without long-term current use of insulin ([facility]) 03/05/2025 10:20 AM CDT Office Visit [address] [place] [address] Jamie Arroyo MD Primary hypogonadism in male (Primary Dx); Type 2 diabetes mellitus with diabetic polyneuropathy, without long-term current use of insulin ([facility]) 02/24/[address] [place] [address] Liza Hererra FNP Type 2 diabetes mellitus with hyperglycemia, without long-term current use of insulin ([facility]) 02/10/2025 External Device Data STL ABSTRACTION Provider, Abstract 01/21/[address] [place] [address] Jamie Arroyo MD 01/20/2025 External Device Data ST[place] ABSTRACTION Provider, Abstract 01/19/[address] [place] [address] Provider, Abstract 01/16/[address] [place] [address] Jamie Arroyo MD 01/16/[address] [place] [phone] Liza Herrera, KERWIN Gastroesophageal reflux disease without esophagitis; Type 2 diabetes mellitus with hyperglycemia, without long-term current use of insulin ([facility]); Mixed hyperlipidemia; Recurrent major depressive disorder, in full remission 01/13/2025 External Device Data STL ABSTRACTION Provider, Abstract 01/07/2025 Results Follow-Up [facility] [address] [place] [phone] Jamie Arroyo MD HEMOGLOBIN A1C, COMPREHENSIVE METABOLIC PANEL, CBC WITH DIFFERENTIAL, Additional followed-up results: 2 from Last 3 Months Immunizations Immunization Administration Dates Next Due (ADACEL/BOOSTRIX)(10 YR UP) TDAP VACCINE, 0.5ML, IM 03/16/2017 (PNEUMOVAX 23)(50 YRS UP) PN EUMOCOCCAL POLYSACCHARIDE (PPV23) 0.5 ML, IM 05/18/2020 (SHINGRIX)(50 YRS UP) ZOSTER VACCINE RECOMBINANT, 0.5 ML, IM 02/03/2025 (SPIKEVAX) (12 YRS UP PRIMAR Y SERIES) COVID-19 VACCINE - MRNA-1273(PF) 100 MCG/0.5 ML IM SUSP 08/21/2020,07/20/2020 Adacel Vaccine > 7 Yo IM 03/16/2017 INFLUENZA VACCINE QUADRIVALE NT 6 MOS UP PF IM 03/28/2023,05/03/2022,04/28/2021,02/23 INFLUENZA VACCINE TRIVALENT SPLIT VIRUS, (6 MOS UP), 0.5ML (PF), IM 03/07/2024 Influenza Seasonal Unspecifi ed Formulation IM 03/28/2023,05/03/2022,04/28/2021,02/23,01/24/2019,01/21/2019 Influenza, Unspecified Formulation 02/03/2025 PNEUMOVAX (PPSV23) pneumococ rudy polysaccharide 23-valent Vaccine 05/18/2020 Family History Medical History Relation Name Comments Diabetes Maternal Grandmother Kelly Gaston High Cholesterol Maternal Grandmother Kelly [place] Liver Disease Maternal Grandmother Kelly [place] Depression Mother [place] Heart Disease Mother [place] Hypertension Mother [place] Thyroid Disease Mother [place] Relation Name Status Comments Maternal Grandmother Kelly [place] Mother [place] Social History Tobacco Use Types Packs/Day Years Used Date Smoking Tobacco: Former Cigarettes 1 25 0 10/1997 - 10/2022 Smokeless Tobacco: Never Tobacco Cessation:Counseling Given: Not Answered Alcohol Use Standard Drinks/Week Comments Yes 7 [...] worry about transportation for future doctor visits, orange picker medication, etc.? No 2024 Housing Stability Answer [...] on file Legal Sex Male 3:40 PM WELT TREATER Gender Identity Male 02/23/2023 5:43 PM CDT Sexual Orientation Lesbian or Lopez 02/23/2023 5: 43 PM CDT Last Filed Vital Signs Vital Sign Reading Time Taken Comments Blood Pressure 147/98 04/03/2025 9:00 AM WELT TREATER Pulse 87 04/03/2025 9:00 AM WELT TREATER Temperature 36 C (96.8 F) 04/03/2025 6:22 AM WELT TREATER Respiratory Rate 20 04/03/2025 9:00 AM WELT TREATER Oxygen Saturation 95% 04/03/2025 9:00 AM WELT TREATER Inhaled Oxygen Concentration - - Weight 100.9 kg (222 lb 6.4 oz) 04/03/2025 6:22 AM WELT TREATER Height 185.4 cm (6' 1 ) 04/03/2025 6:22 AM WELT TREATER Body Mass Index 29.34 04/03/2025 6:22 AM WELT TREATER Plan of Treatment Upcoming Encounters Date Type Department Care Team (Late st Contact Info) Description 07/03/2025 4:20 PM WELT TREATER Office Visit [facility] [address] [address] Jamie Arroyo MD [address] [place] [address] Health Maintenance Due Date Last Done Comments HEPATITIS B VACCINES (1 of 3 - 19+ 3-dose series) 1993 COLORECTAL SCREENING 12/12/2019 FIT/FOBT Q 1 year 12/12/2019 Flex Sig/CT Colonography Q 5 years 12/12/2019 Preventative Visit-Managed Medicaid 12/30/2022 12/29/2021 DIABETES ANNUAL RETINAL EXAM 05/10/2023 05/10/2022, 11/18/2020 Lung Cancer Screening 2024 INFLUENZA VACCINE (#1) 2024 , 03/28/2023, 03/28/2023, Additional history exists COVID-19 Vaccine (3 - 2024-2 6 season) 2025 08/21/2020, 07/20/2020 ZOSTER VACCINE (2 of 2) 03/31/2025 02/03/2025 DIABETES MICROALBUMIN ANNUAL SCREEN 06/09/2025 06/09/2024, 08/28/2023, 09/20/2022, Additional history exists LDL CHOLESTEROL ANNUAL 06/09/2025 , 08/28/2023, 04/25/2023, Additional history exists DIABETES HBA1C Q 6 MONTHS 06/18/20252024, 09/08/2024, 06/09/2024, Additional history exists DIABETES ANNUAL FOOT EXAM 12/16/20252024, 11/01/2021, 05/18/2020 DIABETES: A1C (Auto Order) 12/16/202512/16, 09/08/2024, 06/09/2024, Additional history exists Colorectal Cancer Screening 09/05/2026 FIT-DNA Q 3 years 09/05/2026 09/06/2023 DTAP/TDAP/TD VACCINES (3 - T d or Tdap) 03/16/2027 03/16/2017, 03/16/2017 Abdominal Aortic Aneurysm (A AA) Screening Completed 01/26/2020 Procedures Procedure Name Priority Date/Time Associated Diagnosis Comments CT HAND W CONTRAST RIGHT Stat 04/03/2025 8:09 AM WELT TREATER XR HAND 3+ VW RIGHT Stat 04/03/2025 7 :33 AM WELT TREATER COMPREHENSIVE METABOLIC PANEL Stat 04/03/2025 7:10 AM WELT TREATER CBC WITH DIFFERENTIAL Stat 04/03/2025 7:10 AM WELT TREATER HEMOGLOBIN A1C Routine 12/16/2024 4:07 PM CDT Type 2 diabetes mellitus with diabetic polyneuropathy, without long-term current use of insulin (CMS/HCC) MICROALBUMIN/CREATININ E RATIO, RANDOM UR Routine 06/09/2024 4:33 PM WELT TREATER Type 2 diabetes mellitus without complication, with long-term current use of insulin (CMS/HCC) LIPID PANEL Routine 06/09/2024 4:33 PM WELT TREATER Type 2 diabetes mellitus without complication, with long-term current use of insulin (CMS/HCC) COLON CANCER SCREEN, STOOL DNA Routine 09/06/2023 1:50 AM CDT Encounter for colorectal cancer screening HM DIABETES EYE EXAM Routine 05/10/2022 US ABDOMEN COMPLETE Routine 01/26/2020 9 :28 AM CDT Abdominal distention from Last 3 Months or Most Recently Relevant to Health Maintenance Results * CT HAND W CONTRAST RIGHT (04/03/2025 8:09 AM WELT TREATER) Anatomical Region Laterality Modality Wrist / Hand Computed Tomogra phy 04/03/2025 8:10 AM WELT TREATER Impressions 04/03/2025 8:18 AM WELT TREATER IMPRESSION: Please see below. Exam: CT HAND [...] degenerative changes about the wrist and hand. Dario Hernandez MD CT ORDERABLES Final Result * XR HAND 3+ VW RIGHT (04/03/2025 7:33 AM WELT TREATER) Anatomical Region Laterality Modality Wrist / Hand Computed Radiogr aphy 04/03/2025 7:34 AM WELT TREATER Impressions 04/03/2025 10:12 AM WELT TREATER IMPRESSION: Please see below. Exam: XR HAND [...] soft tissue swelling. IMPRESSION: 1. Nothing acute. Dario Hernandez MD DIAGNOSTIC IMAGING OR DERABLES Final Result * (ABNORMAL) CBC WITH DIFFERENTIAL (04/03/2025 7:10 AM WELT TREATER) WBC 10.2(H) 4.2 - 9.1 K/uL 04/03/2025 7:23 AM [facility] RBC 4.37(L) 4.63 - 6.08 M/uL 04/03/2025 7:23 AM [facility] HEMOGLOBIN 12.5(L) 13.7 - 17.5 g/dL 04/03/2025 7:23 AM [facility] HEMATOCRIT 37.1(L) 40.1 - 51.0 % 04/03/2025 7:23 AM [facility] MCV 84.9 79.0 - 92.2 fL 04/03/2025 7:23 AM [facility] MCH 28.6 25.7 - 32.2 pg 04/03/2025 7:23 AM [facility] MCHC 33.7 32.3 - 36.5 g/dL 04/03/2025 7:23 AM [facility] RDW 13.2 11.0 - 14.5 % 04/03/2025 7:23 AM [facility] RDW-STDEV 41.2 36.9 - 56.9 fL 04/03/2025 7:23 AM [facility] PLATELETS 178 130 - 400 K/uL 04/03/2025 7:23 AM [facility] MPV 10.7 10.0 - 14.8 fL 04/03/2025 7:23 AM [facility] NEUTROPHILS 66 34 - 68 % 04/03/2025 7:23 AM [facility] LYMPHOCYTES 20(L) 22 - 53 % 04/03/2025 7:23 AM [facility] MONOCYTES 11 5 - 12 % 04/03/2025 7:23 AM [facility] EOSINOPHILS 3 1 - 7 % 04/03/2025 7:23 AM [facility] BASOPHILS 0 0 - 1 % 04/03/2025 7:23 AM [facility] IMMATURE GRANULOCYTES 0 % 04/03/2025 7:23 AM [facility] NEUTROPHIL ABSOLUTE 6.79(H) 1.78 - 5.38 K/uL 04/03/2025 7:23 AM [facility] LYMPHOCYTE ABSOLUTE 1.99 1.20 - 3.40 K/uL 04/03/2025 7:23 AM [facility] MONOCYTE ABSOLUTE 1.10(H) 0.30 - 0.82 K/uL 04/03/2025 7:23 AM [facility] EOSINOPHIL ABSOLUTE 0.29 0.04 - 0.54 K/uL 04/03/2025 7:23 AM [facility] BASOPHILS ABSOLUTE 0.03 0.01 - 0.08 K/uL 04/03/2025 7:23 AM [facility] IMMATURE GRANULOCYTES ABSOLUTE 0.02 K/uL 04/03/2025 7:23 AM [facility] Blood Venipuncture / Unknown 04/03/2025 7:10 AM WELT TREATER 04/03/2025 7:13 AM WELT TREATER us Dario Hernandez MD HEMATOLOGY ORDERABLES Final Result [facility] CLIA # [id number] [address] [place] [address] [id number] * (ABNORMAL) COMPREHENSIVE METABOLIC PANEL (04/03/2025 7:10 AM [facility]) SODIUM 136 136 - 145 mmol/L 04/03/2025 7:31 AM [facility] POTASSIUM 4.1 3.5 - 5.1 mmol/L 04/03/2025 7:31 AM [facility] CHLORIDE 102 98 - 107 mmol/L 04/03/2025 7:31 AM [facility] CO2 22 22 - 29 mmol/L 04/03/2025 7:31 AM [facility] CALCIUM 8.9 8.6 - 10.0 mg/dL 04/03/2025 7:31 AM [facility] BUN 10 6 - 20 mg/dL 04/03/2025 7:31 AM [facility] CREATININE 0.96 0.67 - 1.17 mg/dL 04/03/2025 7:31 AM [facility] GLUCOSE 237(H) 74 - 99 mg/dL 04/03/2025 7:31 AM [facility] TOTAL PROTEIN 6.4(L) 6.6 - 8.7 g/dL 04/03/2025 7:31 AM [facility] ALBUMIN 4.3 3.5 - 5.2 g/dL 04/03/2025 7:31 AM [facility] BILIRUBIN TOTAL 0.2 0.0 - 1.2 mg/dL 04/03/2025 7:31 AM [facility] ALKALINE PHOSPHATASE 46 40 - 129 U/L 04/03/2025 7:31 AM [facility] AST 30 0 - 50 U/L 04/03/2025 7:31 AM [facility] ALT 36 0 - 50 U/L 04/03/2025 7:31 AM [facility] GFR >60 >=60 mL/min/1.7 3 sq meter 04/03/2025 7:31 AM [facility] Comment:eGFR calculated with 2020 CKD-EPI equation. Vegetarian diet, extremely high or low muscle mass, and may affect results. Cystatin C with Glomerular Filtration Rate is a suitable alternative for these patients. ANION GAP 12 5 - 20 mmol/L 04/03/2025 7:31 AM WELT TREATER [facility] Blood Venipuncture / Unknown 04/03/2025 7:10 AM WELT TREATER 04/03/2025 7:13 AM WELT TREATER us Dario Hernandez MD CHEMISTRY ORDERABLES Final Result Performing Organization Address City/[facility]/ZIP Co de Phone Number [facility] CLIA # [id number] [address] [place] [phone] * (ABNORMAL) HEMOGLOBIN A1C (12/16/2024 4:07 PM CDT) HEMOGLOBIN A1C 7.0(H) <5.7 % [facility] Comment: For someone without known diabetes, a hemoglobin A1c value of 6.5% or greater indicates that they may have diabetes and this should be confirmed with a follow-up test. For someone with known diabetes, a value <7% indicates that their diabetes is well controlled and a value greater than or equal to 7% indicates suboptimal control. A1c targets should be individualized based on duration of diabetes, age, comorbid conditions, and other considerations. Currently, no consensus exists regarding use of hemoglobin A1c for diagnosis of diabetes for children. ESTIMATED AVERAGE GLUCOSE (MG/DL) 154 mg/dL [facility] ESTIMATED AVERAGE GLUCOSE (MMOL/L) 8.5 mmol/L [facility] Comment: Test Performed at: Results [facility] [address] [place] [address] Unruly Cortez MD Blood 12/16/2024 4:07 PM CDT 12/18/2024 3:26 AM CDT us Jamie Arroyo MD CHEMISTRY ORDERABLES Elza l Result [facility] [phone] [facility] [address] [address] [place] [employer] [address] * MICROALBUMIN/CREATININE RATIO, RANDOM UR (06/09/2024 4:33 PM WELT TREATER) Creatinine, Urine 160 20 - 320 mg/dL [facility] MICROALBUMIN, URINE 4.4 See Note: mg/dL [facility] Comment: Reference Range: Reference Range Not established MICROALBUMIN/CREAT RATIO, UR 28 <30 mg/g creat [facility] Comment: The ADA defines abnormalities in albumin excretion as follows: Albuminuria Category Result (mg/g creatinine) Normal to Mildly increased <30 Moderately increased 30-299 Severely increased > OR = 300 The ADA recommends that at least two of three specimens collected within a 3-6 month period be abnormal before considering a patient to be within a diagnostic category. Test Performed at: [facility] [address] [place] [address] Unruly Cortez MD Urine URINE SPECIMEN OBTAINED BY CLEAN CATCH PROCEDURE / Unknown 06/09/2024 4:33 PM WELT TREATER 06/11/2024 4:25 AM WELT TREATER Jamie Arroyo MD URINE ORDERABLES Final Re sult [facility] [phone] [place] [address] [place] [address] * (ABNORMAL) LIPID PANEL (06/09/2024 4:33 PM WELT TREATER) CHOLESTEROL 180 <200 mg/dL [facility] HDL 44 > OR = 40 mg/dL [facility] TRIGLYCERIDE 271(H) <150 mg/dL [facility] Comment: If a non-fasting specimen was collected, consider repeat triglyceride testing on a fasting specimen if clinically indicated. Mcintyre et al. J. of Clin. Lipidol. 2015;9:129-169. LDL CALCULATED 97 mg/dL (calc) [facility] Comment: Reference range: <100 Desirable range <100 mg/dL for primary prevention; <70 mg/dL for patients with CHD or diabetic patients with > or = 2 CHD risk factors. LDL-C is now calculated using the Mickey-Platt calculation, which is a validated novel method providing better accuracy than the Friedewald equation in the estimation of LDL-C. Mickey SS et al. JOSÉ LUIS. 2013;310(19): 4429-2480 (http://education.Socrata/faq/GIT960) CHOL/HDL RATIO 4.1 <5.0 (calc) [facility] NON-HDL CHOLESTEROL 136(H) <130 mg/dL (calc) [facility] Comment: For patients with diabetes plus 1 major ASCVD risk factor, treating to a non-HDL-C goal of <100 mg/dL (LDL-C of <70 mg/dL) is considered a therapeutic option. Test Performed at: [facility] [id number] [address] [place] [address] Unruly Cortez MD Blood 06/09/2024 4:33 PM WELT TREATER 06/11/2024 4:51 AM WELT TREATER Jamie Arroyo MD CHEMISTRY ORDERABLES [facility] Result [facility] [phone] [facility] [address] [place] [address] * COLON CANCER SCREEN, STOOL DNA (09/06/2023 1:50 AM CDT) COLOGUARD RESULT Negative Negative [facility] Comment: NEGATIVE TEST RESULT. A negative Cologuard result indicates a low likelihood that a colorectal cancer (CRC) or advanced adenoma (adenomatous polyps with more advanced pre-malignant features) is present. The chance that a person with a negative Cologuard test has a colorectal cancer is less than 1 in 1500 (negative predictive value >99.9%) or has an advanced adenoma is less than 5.3% (negative predictive value 94.7%). These data are based on a prospective cross-sectional study of 10,000 individuals at average risk for colorectal cancer who were screened with both Cologuard and colonoscopy. (Marty López al, N Engl J Med 2014;370(14):9299-1386) The normal value (reference range) for this assay is negative. COLOGUARD RE-SCREENING RECOMMENDATION: Periodic colorectal cancer screening is an important part of preventive healthcare for asymptomatic individuals at average risk for colorectal cancer. Following a negative Cologuard result, the [employer] and U.S. Multi-Society Task Force screening guidelines recommend a Cologuard re-screening interval of 3 years. References: [employer] Guideline for Colorectal Cancer Screening: https://www.cancer.org/cancer/ducmi-miohca-qzvfcp/jcywdzxrp-yxmhsznmb-omitgkg/ac s-rec ommendations.html.; Dash DK, Brittanie WILBURN, Melissa LeeK, Colorectal Cancer Screening: Recommendations for Physicians and Patients from the U.S. Multi-Society Task Force on Colorectal Cancer Screening , Am J Gastroenterology 2017; 112:4100-4527. TEST DESCRIPTION: Composite algorithmic analysis of stool DNA-biomarkers with hemoglobin immunoassay. Quantitative values of individual biomarkers are not reportable and are not associated with individual biomarker result reference ranges. Cologuard is intended for colorectal cancer screening of adults of either sex, 45 years or older, who are at average-risk for colorectal cancer (CRC). Cologuard has been approved for use by the U.S. FDA. The performance of Cologuard was established in a cross sectional study of average-risk adults aged 50-84. Cologuard performance in patients ages 45 to 49 years was estimated by sub-group analysis of near-age groups. Colonoscopies performed for a positive result may find as the most clinically significant lesion: colorectal cancer [4.0%], advanced adenoma (including sessile serrated polyps greater than or equal to 1cm diameter) [20%] or non- advanced adenoma [31%]; or no colorectal neoplasia [45%]. These estimates are derived from a prospective cross-sectional screening study of 10,000 individuals at average risk for colorectal cancer who were screened with both Cologuard and colonoscopy. (Marty Ford et al, N Engl J Med 2014;370(14):1072-7501.) Cologuard may produce a false negative or false positive result (no colorectal cancer or precancerous polyp present at colonoscopy follow up). A negative Cologuard test result does not guarantee the absence of CRC or advanced adenoma (pre-cancer). The current Cologuard screening interval is every 3 years. ([place] and U.S. Multi-Society Task Force). Cologuard performance data in a 10,000 patient pivotal study using colonoscopy as the reference method can be accessed at the following location: www.Intela/results. Additional description of the Cologuard test process, warnings and precautions can be found at www.Cleord.com. Stool STOOL SPECIMEN / Unknown 09/06/2023 1:50 AM CDT 09/07/2023 1:08 PM CDT Liza Herrera [employer] LEAD BODY FLUIDS AND STOOLS F inal Result [facility] CLIA # [id number] [address] , [address] [place] [address] * DIABETES EYE EXAM (05/10/2022) us Abstract Provider HEALTH MAINTENANCE Final Resul t * US ABDOMEN COMPLETE (01/26/2020 9:28 AM CDT) Anatomical Region Laterality Modality Abdomen Other Impressions 01/26/2020 12:47 PM CDT Please see below. US ABDOMEN COMPLETE, 01/26/2020 9:28 AM . Reason For Exam: See Diagnosis. Diagnosis: Abdominal distention. COMPARISON: None . TECHNIQUE: Multiplanar real-time ultrasonography of the abdomen using delaney-scale imaging, supplemented by color and spectral Doppler as needed. . FINDINGS: . Liver: The hepatic echogenicity is heterogeneous and diffusely increased. Focal fatty sparing is noted adjacent to the gallbladder. The liver is enlarged at 20.8 cm in craniocaudal extent. Antegrade flow is noted within the main portal vein. . Gallbladder: Normal. No stones, wall thickening or pericholecystic fluid collections. No sonographic Yip's sign. . Biliary: No intra- or extra-hepatic ductal dilatation. Common bile duct measures 4 mm. . Spleen: Normal size, contour, and echo texture without focal lesions. Maximal dimension = 11.6 cm. . Pancreas: Obscured by bowel gas. . Kidneys: No perinephric fluid, or hydronephrosis. No focal masses are identified. Right kidney measures 12.3 cm. Left kidney measures 12.2 cm. . Peritoneum: No ascites. . Vascular: The visualized aorta and IVC are within normal limits. . ++++++++++++++++++++ IMPRESSION: Hepatomegaly and hepatic steatosis. Normal gallbladder without biliary ductal dilatation. Narrative Procedure Note Roberto Bello MD - 10/15/2020 IMPRESSION Please see below. US ABDOMEN COMPLETE, 01/26/2020 9:28 AM . Reason For Exam: See Diagnosis. Diagnosis: Abdominal distention. COMPARISON: None . TECHNIQUE: Multiplanar real-time ultrasonography of the abdomen using delaney-scale imaging, supplemented by color and spectral Doppler as needed. . FINDINGS: . Liver: The hepatic echogenicity is heterogeneous and diffusely increased. Focal fatty sparing is noted adjacent to the gallbladder. The liver is enlarged at 20.8 cm in craniocaudal extent. Antegrade flow is noted within the main portal vein. . Gallbladder: Normal. No stones, wall thickening or pericholecystic fluid collections. No sonographic Yip's sign. . Biliary: No intra- or extra-hepatic ductal dilatation. Common bile duct measures 4 mm. . Spleen: Normal size, contour, and echo texture without focal lesions. Maximal dimension = 11.6 cm. . Pancreas: Obscured by bowel gas. . Kidneys: No perinephric fluid, or hydronephrosis. No focal masses are identified. Right kidney measures 12.3 cm. Left kidney measures 12.2 cm. . Peritoneum: No ascites. . Vascular: The visualized aorta and IVC are within normal limits. . ++++++++++++++++++++ IMPRESSION: Hepatomegaly and hepatic steatosis. Normal gallbladder without biliary ductal dilatation. us Jamie Arroyo MD ORDERABLES Final Res ult from Last 3 Months or Most Recently Relevant to Health Maintenance Insurance [place] [address] Care Teams Refrigeration Service Inspector Relationship Specialty Start Date End Date Jamie Arroyo MD [address] [address] PCP - General 08/06/20
--- OUTSIDE RECORDS SUMMARY | 2025-04-04 10:15 | XMS_ITS | Encounter Summary ---
Author Organization [facility] Address [address] [place] [address] Care Team Providers Care Unemployment Insurance Director Name Role Phone Jamie Arroyo MD Primary Care Provider [phone] Encounter Details Date Type Department Care Team (Late st Contact Info) Description 11/08/2017 Lab Requisition [facility] Laboratory Services [place] [address] [address] Miguelina Tolliver MD [address] [place] [address] Social History Tobacco Use Types Packs/Day Years Used Date Smoking Tobacco: Never Assessed Sex and Gender Information Value Date Recorded Sex Assigned at Not on file Legal Sex Male 9:13 AM CDT Gender Identity Not on file Sexual Orientation Not on file documented as of this encounter Plan of Treatment Not on file documented as of this encounter Visit Diagnoses Not on filedocumented in this encounter Additional Health Concerns Infection Onset Date Last Indicated Resolved Time R/O C. diff 01/09/2020 01/09/2020 01/09/2020 12:2 2 PM CDT R/O COVID-19 02/04/2020 02/05/2020 02/07/2020 3:02 AM CDT documented as of this encounter Care Teams Unemployment Insurance Director Relationship Specialty Start Date End Date Jamie Arroyo MD [address] [place] [phone] PCP - General Family Practice 10/23/19 documented as of this encounter
--- OUTSIDE RECORDS SUMMARY | 2025-04-04 10:15 | XMS_ITS | Encounter Summary ---
Author Organization [facility] Address [address] [place] [address] Care Team Providers Care Alliances Consultant Name Role Phone Jamie Arroyo MD Primary Care Provider [phone] Encounter Details Date Type Department Care Team (Late st Contact Info) Description 11/13/2016 Lab Requisition [facility] Laboratory Services [place] [address] [place] [address] Perry Smith, DO NO ADDRESS ON FILE Social History Tobacco Use Types Packs/Day Years [...] Procedure Name Priority Date/Time Associated Diagnosis Comments HEMOGLOBIN A1C Routine 11/13/2016 8:54 PM CDT LIPID PANEL Routine 11/13/2016 8:54 PM CDT COMPREHENSIVE METABOLIC PANEL Routine 11/13/2016 8:54 PM CDT documented in this encounter Results * (ABNORMAL) LIPID PANEL (11/13/2016 8:54 PM CDT) [facility] CHOLESTEROL 204(H) <200 mg/dL 11/14/2016 1:23 AM CDT [facility] TRIGLYCERIDE 441(H) <150 mg/dL 11/14/2016 1:23 AM CDT [facility] HDL 27(L) 40 - 59 mg/dL 11/14/2016 1:23 AM CDT [facility] LDL CALCULATED <100 mg/dL 11/14/2016 1:23 AM CDT [facility] Comment:Calculated LDL is no t accurate when the Triglyceride value exceeds 400. NON-HDL CHOLESTEROL 177(H) <130 mg/dL 11/14/2016 1:23 AM CDT [facility] Blood 11/13/2016 8:54 PM CDT 11/13/2016 10:09 PM CDT Narrative [facility] - 11/14/2016 1:23 AM CDT TOTAL CHOLESTEROL mg/dL Desirable <200 Borderline high 200-239 High >=240 TRIGLYCERIDES mg/dL Normal <150 Borderline high 150-199 High 200-499 Very high >=500 HDL CHOLESTEROL mg/dL Low <40 Normal 40-59 Desirable >=60 NON HDL CHOLESTEROL mg/dL Optimal <130 Near Optimal 130-159 Borderline High 160-189 Very High >=190 Calculated LDL mg/dL Optimal <100 Near Optimal 100-129 Borderline High 130-159 High 160-189 Very High >=190 ATPIII Guidelines Reference Ranges for Lipid Panels (NCEP/AMA) us Perry Smith DO CHEMISTRY ORDERABLES Final Resu lt [facility] CLIA # [id number] [address] [place] [address] * (ABNORMAL) HEMOGLOBIN A1C (11/13/2016 8:54 PM CDT) HEMOGLOBIN A1C 7.7(H) 4.8 - 5.9 % 11/14/2016 1:23 AM CDT [facility] EST. AVG GLUCOSE, A1C 174 mg/dL 11/14/2016 1:23 AM CDT [facility] Blood 11/13/2016 8:54 PM CDT 11/13/2016 10:09 PM CDT us Perry Smith DO CHEMISTRY ORDERABLES Final Resu lt [facility] CLIA # [id number] [address] [place] [address] * (ABNORMAL) COMPREHENSIVE METABOLIC PANEL (11/13/2016 8:54 PM CDT) SODIUM 140 136 - 145 mmol/L 11/14/2016 1:23 AM [facility] POTASSIUM 3.9 3.5 - 5.1 mmol/L 11/14/2016 1:23 AM [facility] CHLORIDE 100 98 - 107 mmol/L 11/14/2016 1:23 AM [facility] CO2 23 22 - 29 mmol/L 11/14/2016 1:23 AM [facility] CALCIUM 10.0 8.6 - 10.0 mg/dL 11/14/2016 1:23 AM [facility] BUN 9 6 - 20 mg/dL 11/14/2016 1:23 AM [facility] CREATININE 0.87 mg/dL 11/14/2016 1:23 AM [facility] GLUCOSE 118(H) 74 - 106 mg/dL 11/14/2016 1:23 AM [facility] TOTAL PROTEIN 7.8 6.6 - 8.7 g/dL 11/14/2016 1:23 AM [facility] ALBUMIN 4.8 3.5 - 5.2 g/dL 11/14/2016 1:23 AM [facility] BILIRUBIN TOTAL 0.5 0.0 - 1.2 mg/dL 11/14/2016 1:23 AM [facility] ALKALINE PHOSPHATASE 48 U/L 11/14/2016 1:23 AM [facility] AST 65 U/L 11/14/2016 1:23 AM [facility] ALT 70 U/L 11/14/2016 1:23 AM [facility] GFR >=60 mL/min/1.7 3 sq meter 11/14/2016 1:23 AM [facility] Comment: eGFR has not been [...] result. GFR, >=60 mL/min/1.7 3 sq meter 11/14/2016 1:23 AM CDT [facility] ANION GAP 17 12 - 20 mmol/L 11/14/2016 1:23 AM CDT [facility] Blood 11/13/2016 8:54 PM CDT 11/13/2016 10:09 PM CDT us Perry Smith DO CHEMISTRY ORDERABLES Final Resu lt [facility] CLIA # [id number] [address] [address] documented in this encounter Visit Diagnoses Not on filedocumented in this encounter Additional Health Concerns Infection Onset Date Last Indicated Resolved Time R/O C. diff 01/09/2020 01/09/2020 01/09/2020 12:2 2 PM CDT R/O COVID-19 02/04/2020 02/05/2020 02/07/2020 3:02 AM CDT documented as of this encounter Care Teams Alliances Consultant Relationship Specialty Start Date End Date Jamie Arroyo MD [address] [address] PCP - General Family Practice 10/23/19 documented as of this encounter
--- OUTSIDE RECORDS SUMMARY | 2025-04-04 10:15 | XMS_ITS | Encounter Summary ---
Author Organization [facility] Address [address] [place] [address] Care Team Providers Care Mail Room Clerk Name Role Phone Jamie Arroyo MD Primary Care Provider [phone] [phone] Reason for Referral * CT Scan (Routine) - Closed Specialty Diagnoses / Procedures Referred By Contac t Referred To Contact Radiology Diagnoses Abnormal CT scan Right lower lobe pulmonary nodule Procedures CT CHEST WO CONTRAST Jamie Arroyo MD [address] [address] Phone: tel: fax: [facility] CT Scan [place] [address] [address] Phone: tel: fax: Referral ID Status Reason Start Date Expiration Date V isits Requested Visits Authorized [id number] Closed [facility] View CTS to Schedule (SGF) 03/11/2019 04/10/2020 1 1 Encounter Details Date Type Department Care Team (Latest Contact Info) Description 03/11/2019 Ancillary Orders [facility] Centralized Scheduling [address] [address] Jamie Arroyo MD [address] [address] scan; Right lower lobe pulmonary nodule Social History Tobacco Use Types Packs/Day Years Used Date Smoking Tobacco: Every Day Cigarettes Smokeless Tobacco: Never Comments:On Chantix, trying [...] documented as of this encounter Results * CT CHEST WO CONTRAST (03/13/2019 9:20 AM CDT) Anatomical Region Laterality Modality Chest Computed Tomogra phy 03/13/2019 9:20 AM CDT Impressions 03/13/2019 11:00 AM CDT IMPRESSION: Please see below. Exam: CT CHEST WO CONTRAST Date/Time of Exam: 03/13/2019 9:20 AM Reason For Exam: See Diagnosis. Diagnosis: Abnormal CT scan; Right lower lobe pulmonary nodule. Technique: Axial tomograms obtained through the chest without IV contrast. Findings: No pleural or pericardial effusion. No gross thoracic lymphadenopathy by size criteria given limitation of absent IV contrast. No aneurysm of thoracic aorta. Irregular pulmonary lesion measuring 1.2 cm in greatest diameter high within superior segment of right lower lobe and with subtle calcifications. This lesion contacts interlobar pleural fissure. Trace central bronchiectasis. Limited images of upper abdomen with marked fatty infiltration of liver. Imaged skeleton without apparent acute pathology. IMPRESSION: Irregular 1.2 cm lesion high within superior segment of right lower lobe with subtle calcifications. Considerations may include old granulomatous residuals. Given size of this lesion, follow-up in three months recommended. Fatty infiltration of liver. Narrative Procedure Note Rishabh Garza MD - 03/13/2019 IMPRESSION: Please see below. Exam: CT CHEST WO CONTRAST Date/Time of Exam: 03/13/2019 9:20 AM Reason For Exam: See Diagnosis. Diagnosis: Abnormal CT scan; Right lower lobe pulmonary nodule. Technique: Axial tomograms obtained through the chest without IV contrast. Findings: No pleural or pericardial effusion. No gross thoracic lymphadenopathy by size criteria given limitation of absent IV contrast. No aneurysm of thoracic aorta. Irregular pulmonary lesion measuring 1.2 cm in greatest diameter high within superior segment of right lower lobe and with subtle calcifications. This lesion contacts interlobar pleural fissure. Trace central bronchiectasis. Limited images of upper abdomen with marked fatty infiltration of liver. Imaged skeleton without apparent acute pathology. IMPRESSION: Irregular 1.2 cm lesion high within superior segment of right lower lobe with subtle calcifications. Considerations may include old granulomatous residuals. Given size of this lesion, follow-up in three months recommended. Fatty infiltration of liver. us Jamie Arroyo MD CT ORDERABLES Final Res ult documented in this encounter Visit Diagnoses Diagnosis Abnormal CT scan Other nonspecific (abnormal) findings on radiological and other examinations of body structure Right lower lobe pulmonary nodule Abnormal CT scan Other nonspecific (abnormal) findings on radiological and other examinations of body structure Right lower lobe pulmonary nodule documented in this encounter Additional Health Concerns Infection Onset Date Last Indicated Resolved Time R/O C. diff 01/09/2020 01/09/2020 01/09/2020 12:2 2 PM CDT R/O COVID-19 02/04/2020 02/05/2020 02/07/2020 3:02 AM CDT documented as of this encounter Care Teams Mail Room Clerk Relationship Specialty Start Date End Date Jamie Arroyo MD [address] [facility] [address] [place] [address] PCP - General Family Practice 10/23/19 documented as of this encounter
--- OUTSIDE RECORDS SUMMARY | 2025-04-04 10:15 | XMS_ITS | Encounter Summary ---
Author Organization [facility] Address [address] [place] [address] Care Team Providers Care Children Counselor Name Role Phone Jamie Arroyo MD Primary Care Provider [phone] Encounter Details Date Type Department Care Team (Late st Contact Info) Description 05/10/2020 Lab Requisition [facility] Laboratory Services [place] [address] [place] [address] Perry Smith, DO NO ADDRESS ON FILE Social History Tobacco Use Types Packs/Day Years Used Date Smoking Tobacco: Every Day Cigarettes Smokeless Tobacco: Never Comments:5 cigarettes daily Alcohol Use Standard Drinks/Week Comments Not Currently 0 (1 standard drink = 0.6 oz [...] Associated Diagnosis Comments CBC WITH DIFFERENTIAL Routine 05/10/2020 8:08 PM JUKEBOX ROUTEMAN TSH Routine 05/10/2020 8:08 PM [employer]UKEBOX ROUTEMAN HEMOGLOBIN A1C Routine 05/10/2020 8:08 PM [employer]UKE[employer] ROUTEMAN LIPID PANEL Routine 05/10/2020 8:08 PM [employer]UKEBOX ROUTEMAN COMPREHENSIVE METABOLIC PANEL Routine 05/10/2020 8:08 PM JUKEBOX ROUTEMAN documented in this encounter Results * TSH (05/10/2020 8:08 PM JUKEBOX ROUTEMAN) TSH 2.36 0.27 - 4.20 uIU/mL 05/10/2020 8:44 PM [facility] Blood Collection / Unknown 05/10/2020 8:08 PM JUKEBOX ROUTEMAN 05/10/2020 8:08 PM [employer]UKEBOX ROUTEMAN Perry Smith DO CHEMISTRY ORDERABLES Final Resu lt [facility] CLIA # [id number] [address] [place] [id number] * (ABNORMAL) LIPID PANEL (05/10/2020 8:08 PM JUKEBOX ROUTEMAN) CHOLESTEROL 261(H) <200 mg/dL 05/10/2020 8:44 PM [employer]UKEBOX ROUTEMAN [facility] TRIGLYCERIDE 695(H) <150 mg/dL 05/10/2020 8:44 PM [facility] HDL 32(L) 40 - 59 mg/dL 05/10/2020 8:44 PM [facility] LDL CALCULATED 05/10/2020 8:44 PM [facility] Comment:Calculated LDL is no t accurate when the Triglyceride value exceeds 400. NON-HDL CHOLESTEROL 229(H) <130 mg/dL 05/10/2020 8:44 PM [employer]UKEBOX ROUTEMAN [facility] Blood Collection / Unknown 05/10/2020 8:08 PM JUKEBOX ROUTEMAN 05/10/2020 8:08 PM [employer] ROUTEMAN Narrative [facility] - 05/10/2020 8:44 PM [employer]KEBOX ROUTEMAN TOTAL CHOLESTEROL mg/dL Desirable <200 Borderline high 200-239 High >=240 TRIGLYCERIDES mg/dL Normal <150 Borderline high 150-199 High 200-499 Very high >=500 HDL CHOLESTEROL mg/dL Low <40 Normal 40-59 Desirable >=60 NON HDL CHOLESTEROL mg/dL Optimal <130 Near Optimal 130-159 Borderline High 160-189 Very High >=190 CALCULATED LDL mg/dL LDL <70, OPTIMAL if have Atherosclerotic cardiovascular disease (ASCVD) or intermediate or higher (>7.5%) 10 year risk of ASCVD including most adults with diabetes. LDL <100, Optimal in adult patients with low (<7.5%) 10 year ASCVD risk LDL 100-160, Suboptimal LDL >160, High LDL >190, Very high ATPIII Guidelines Reference Ranges for Lipid Panels (NCEP/AMA) . us Perry Smith DO CHEMISTRY ORDERABLES Final Resu lt Performing Organization Address City/[facility]/ZIP Co de Phone Number [facility] CLIA # [id number] [address] [place] [address] * (ABNORMAL) HEMOGLOBIN A1C (05/10/2020 8:08 PM JUKEBOX ROUTEMAN) HEMOGLOBIN A1C 9.6(H) <=5.6 % 05/10/2020 8:42 PM [facility] EST. AVG GLUCOSE, A1C 229 mg/dL 05/10/2020 8:42 PM [facility] Blood Collection / Unknown 05/10/2020 8:08 PM J[employer]KEBOX ROUTEMAN 05/10/2020 8:08 PM [facility] ROUTEMAN Narrative [facility] - 05/10/2020 8:42 PM [facility] ROUTEM[facility] HGB A1C INTERPRETATION NORMAL: <5.7% PRE-DIABETES: 5.7 - 6.4% DIABETES: 6.5% OR GREATER us Perry Smith DO CHEMISTRY ORDERABLES Final Resu lt [facility] CLIA # [id number] [address] [place] [address] * (ABNORMAL) COMPREHENSIVE METABOLIC PANEL (05/10/2020 8:08 PM JUKEBOX ROUTEMAN) SODIUM 137 136 - 145 mmol/L 05/10/2020 8:44 PM [facility] POTASSIUM 4.0 3.5 - 5.1 mmol/L 05/10/2020 8:44 PM [facility] CHLORIDE 100 98 - 107 mmol/L 05/10/2020 8:44 PM [facility] CO2 25 22 - 29 mmol/L 05/10/2020 8:44 PM [facility] CALCIUM 9.6 8.6 - 10.0 mg/dL 05/10/2020 8:44 PM [facility] BUN 14 6 - 20 mg/dL 05/10/2020 8:44 PM [facility] CREATININE 0.99 0.67 - 1.17 mg/dL 05/10/2020 8:44 PM [facility] GLUCOSE 161(H) 74 - 99 mg/dL 05/10/2020 8:44 PM [facility] TOTAL PROTEIN 7.3 6.6 - 8.7 g/dL 05/10/2020 8:44 PM [facility] ALBUMIN 4.6 3.5 - 5.2 g/dL 05/10/2020 8:44 PM [facility] BILIRUBIN TOTAL 0.2 <=1.2 mg/dL 05/10/2020 8:44 PM [facility] ALKALINE PHOSPHATASE 65 40 - 129 U/L 05/10/2020 8:44 PM [facility] AST 37 10 - 50 U/L 05/10/2020 8:44 PM [facility] ALT 43 10 - 50 U/L 05/10/2020 8:44 PM [facility] GFR >60 >=60 mL/min/1.7 3 sq meter 05/10/2020 8:44 PM [facility] Comment: eGFR has not been validated for [...] GFR, >60 >=60 mL/min/1.7 3 sq meter 05/10/2020 8:44 PM [facility] ANION GAP 12 12 - 20 mmol/L 05/10/2020 8:44 PM [facility] Blood Collection / Unknown 05/10/2020 8:08 PM [employer]OUT[employer] 05/10/2020 8:08 PM [employer]OUTEM[employer] us Perry Smith DO CHEMISTRY ORDERABLES Final Resu lt [facility] CLIA # [id number] [address] [place] [address] * (ABNORMAL) CBC WITH DIFFERENTIAL (05/10/2020 8:08 PM [facility]KE[employer] ROUTEMAN) WBC 10.1(H) 4.2 - 9.1 K/uL 05/10/2020 8:42 PM [facility] RBC 5.13 4.63 - 6.08 M/uL 05/10/2020 8:42 PM [facility] HEMOGLOBIN 16.0 13.7 - 17.5 g/dL 05/10/2020 8:42 PM [facility] HEMATOCRIT 46.7 40.1 - 51.0 % 05/10/2020 8:42 PM [facility] MCV 91.0 79.0 - 92.2 fL 05/10/2020 8:42 PM [facility] MCH 31.2 25.7 - 32.2 pg 05/10/2020 8:42 PM [facility] MCHC 34.3 32.3 - 36.5 g/dL 05/10/2020 8:42 PM [facility] RDW 13.2 11.0 - 14.5 % 05/10/2020 8:42 PM [facility] RDW-STDEV 44.3 36.9 - 56.9 fL 05/10/2020 8:42 PM [facility] PLATELETS 255 130 - 400 K/uL 05/10/2020 8:42 PM [facility] MPV 12.4 10.0 - 14.8 fL 05/10/2020 8:42 PM [facility] NEUTROPHILS 52 34 - 68 % 05/10/2020 8:42 PM [facility] LYMPHOCYTES 35 22 - 53 % 05/10/2020 8:42 PM [facility] MONOCYTES 10 5 - 12 % 05/10/2020 8:42 PM [facility] EOSINOPHILS 2 1 - 7 % 05/10/2020 8:42 PM [facility] BASOPHILS 1 0 - 1 % 05/10/2020 8:42 PM [facility] IMMATURE GRANULOCYTES 1 % 05/10/2020 8:42 PM [facility] NEUTROPHIL ABSOLUTE 5.25 1.78 - 5.38 K/uL 05/10/2020 8:42 PM [facility] LYMPHOCYTE ABSOLUTE 3.52(H) 1.20 - 3.40 K/uL 05/10/2020 8:42 PM [facility] MONOCYTE ABSOLUTE 1.05(H) 0.30 - 0.82 K/uL 05/10/2020 8:42 PM [facility] EOSINOPHIL ABSOLUTE 0.18 0.04 - 0.54 K/uL 05/10/2020 8:42 PM [facility] BASOPHILS ABSOLUTE 0.05 0.01 - 0.08 K/uL 05/10/2020 8:42 PM [facility] IMMATURE GRANULOCYTES ABSOLUTE 0.05 K/uL 05/10/2020 8:42 PM [facility] Blood Collection / Unknown 05/10/2020 8:08 PM [facility]OUT[facility] 05/10/2020 8:08 PM [employer] Perry Smith DO HEMATOLOGY ORDERABLES Final Res ult [facility] CLIA # [id number] [address] [address] documented in this encounter Visit Diagnoses Not on filedocumented in this encounter Care Teams Children Counselor Relationship Specialty Start Date End Date Jamie Arroyo MD [address] [address] PCP - General Family Practice 10/23/19 documented as of this encounter
--- OUTSIDE RECORDS SUMMARY | 2025-04-04 10:15 | XMS_ITS | Encounter Summary ---
Author Organization [facility] Address [address] [facility] Attn: [place] [address] Care Team Providers Care Harp Repairer Name Role Phone Jamie Arroyo MD Primary Care Provider [phone] Encounter Details Date Type Department Care Team (Latest Contact Info) Description 04/03/2025 Travel Social History Tobacco Use Types Packs/Day Years [...] worry about transportation for future doctor visits, cloth picker medication, etc.? No 2024 Housing Stability [...] on file Legal Sex Male 3:40 PM BROADCAST DESIGNER Gender Identity Male 02/23/2023 5:43 PM CDT Sexual Orientation Lesbian or Lopez 02/23/2023 5: 43 PM CDT documented as of this encounter Plan of Treatment Upcoming Encounters Date Type Department Care Team (Late st Contact Info) Description 07/03/2025 4:20 PM BROADCAST DESIGNER Office Visit [facility] [address] [address] Jamie Arroyo MD [address] [address] documented as of this encounter Visit Diagnoses Not on filedocumented in this encounter Care Teams Harp Repairer Relationship Specialty Start Date End Date Jamie Arroyo MD [address] [address] PCP - General 08/06/20 documented as of this encounter
--- OUTSIDE RECORDS SUMMARY | 2025-04-04 10:15 | XMS_ITS | Encounter Summary ---
Author Organization [facility] Address [address] [place] [address] Care Team Providers Care Product Safety Associate Name Role Phone Jamie Arroyo MD Primary Care Provider [phone] Encounter Details Date Type Department Care Team (Late st Contact Info) Description 03/11/2019 Ancillary Orders [facility] Centralized Scheduling [address] [address] Jamie Arroyo MD [address] [facility] [address] [place] [phone] Social History Tobacco Use Types Packs/Day Years [...] documented as of this encounter Care Teams Product Safety Associate Relationship Specialty Start Date End Date Jamie Arroyo MD [address] [phone] PCP - General Family Practice 10/23/19 documented as of this encounter
--- OUTSIDE RECORDS SUMMARY | 2025-04-04 10:15 | XMS_ITS | Clinical Summary ---
Author Organization [facility] Address [address] [place] [address] Phone Care Team Providers Care Dielectric Tester Name Role Phone Jamie Arroyo MD Primary Care Provider [phone] [phone] Allergies Active Allergy Reactions Criticality Noted Date Comments Atorvastatin Muscle Pain 11/29/2017 Medications SUMAtriptan (IMITREX) 5 mg/actuation [place], Non-Aerosol every 2 hours as needed for Headaches may repeat in 2 hours; max dose 40mg in 24 hours . Active melatonin 5 mg Tablet Take by mouth nightly as needed. Active cetirizine (ZyrTEC) 10 mg tablet Take 10 mg by mouth daily. Active aspirin (ASPIRIN LOW DOSE) 81 mg Tablet, Delayed Release (E.C.) Take 1 Tablet (81 mg) by mouth daily. 100 Tablet 3 01/15/20 19 Active nitroglycerin (NITROSTAT) 0.4 mg Tablet, Sublingual Place 1 Tablet (0.4 mg) under tongue every 5 minutes as needed for Chest Pain (If no relief after 2nd nitro, call 911.). 25 Tablet 3 01/15/20 19 Active omeprazole (PriLOSEC) 40 mg Capsule, Delayed Release(E.C.)Indic ations:Gastroesoph ageal reflux disease without esophagitis Take 1 capsule by mouth once daily 90 Capsule 3 01/16/20 20 Active metoprolol tartrate (LOPRESSOR) 50 mg tabletIndications: Benign hypertension Take 1 tablet by mouth twice daily 180 Tablet 3 01/16/20 20 Active DULoxetine (CYMBALTA) 60 mg Capsule, Delayed Release(E.C.)Indic ations:Recurrent major depressive disorder, in full remission Take 2 Capsules (120 mg) by mouth daily at bedtime. 60 Capsule 02/24/20 Active metFORMIN (GLUCOPHAGE) 1,000 mg tabletIndications: Type 2 diabetes mellitus with hyperglycemia, without long-term current use of insulin (CMS/HCC) Take 1 Tablet (1,000 mg) by mouth 2 times daily with meals. 180 Tablet 02/24/20 Active rosuvastatin (Crestor) 20 mg tablet Take 1 Tablet (20 mg) by mouth daily. Replaces simvastatin 90 Tablet 05/18/20 Active naloxone (NARCAN) 4 mg/spray [place], Non-Aerosol EMERGENCY USE ONLY: Administer 1 spray (4 mg) in one nostril one time. May repeat in alternating nostrils every 2-3 min until responsive or EMS arrives. 2 Each 06/26/19 Active hydroCHLOROthiazid e 12.5 mg tabletIndications: Benign hypertension Take 1 Tablet (12.5 mg) by mouth daily. 30 Tablet 08/20/19 Active insulin glargine (LANTUS) 100 unit/mL pen syringe Inject 70 Units by subcutaneous injection daily with breakfast. 21 mL 08/26/19 Active gabapentin (NEURONTIN) 800 mg tabletIndications: Type 2 diabetes mellitus with hyperglycemia, without long-term current use of insulin ([facility]) Take 1 Tablet (800 mg) by mouth 3 times daily. Take in combination with 400 mg capsule for total dose of 1200 mg three times daily 90 Tablet 09/04/19 Active gabapentin (NEURONTIN) 400 mg capsule Take 1 Capsule (400 mg) by mouth 3 times daily. Take in combination with 800 mg tablet for total dose of 1200 mg three times daily 90 Capsule 09/04/19 Active insulin aspart U-100 (NovoLOG Flexpen U-100 Insulin) 100 unit/mL pen syringeIndications :Type 2 diabetes mellitus with hyperglycemia, without long-term current use of insulin (CMS/[facility]) Inject 10-30 Units by subcutaneous injection 3 times daily with meals. Adjust based on sliding scale, max daily dose 90 units, regimen change 27 mL 09/10/19 Active lisinopriL (PRINIVIL) 10 mg tabletIndications: Type 2 diabetes mellitus with hyperglycemia, without long-term current use of insulin (CMS/[facility]),Benign hypertension Take 1 Tablet (10 mg) by mouth daily. 30 Tablet 11 09/22/19 21 Active meloxicam (MOBIC) 15 mg tabletIndications: Generalized osteoarthritis of multiple sites Take 1 Tablet (15 mg) by mouth daily. 30 Tablet 11 09/22/19 21 Active oxygen home deliveryIndication s:Nocturnal hypoxemia Home Oxygen Concentrator yes at , 2 L/M Sleep, Delivery Device: Nasal Cannula Portability: no, May provide device best for patient needs(E system,home fill, conserving device) Length of Need: 99 months 1 Each 10/02/19 21 Active cyclobenzaprine (FLEXERIL) 10 mg tablet Take 0.5-1 Tablets (5-10 mg) by mouth 3 times daily as needed for Spasm. May cause drowsiness 60 Tablet 2 10/29/19 21 Active ALPRAZolam (XANAX) 0.5 mg tabletIndications: Bereavement TAKE 1 TABLET BY MOUTH NIGHTLY NEEDED FOR ANXIETY 15 Tablet 11/05/19 21 Active varenicline (CHANTIX) 0.5 mg (11)- 1 mg (42) tablets STARTER dose packIndications:Cu rrent smoker Take as directed on package. 53 Tablet 11/19/19 21 Active Active Problems Problem Noted Date Diagnosed Date LVH (left ventricular hypertrophy) 11/18/2020 Diastolic dysfunction 11/18/2020 Chronic respiratory failure with hypoxia 021 CYNDI (obstructive sleep apnea) 08/19/2020 Fatty liver 02/04/2020 Mixed hyperlipidemia 10/23/2019 Gastroesophageal reflux disease without esophagi tis 10/23/2019 Migraines 10/23/2019 Recurrent major depressive disorder, in full rem ission 10/23/2019 Generalized osteoarthritis of multiple sites History of pulmonary embolism 02/11/2019 Nodule of right lung 02/11/2019 Oropharyngeal lesion 11/29/2017 Current smoker 11/29/2017 Type 2 diabetes mellitus wit h hyperglycemia, without long-term current use of insulin 11/29/2017 Benign hypertension 11/29/2017 Resolved Problems Problem Noted Date Diagnosed Date Resolved Date Stable angina 02/24/2020 08/19/2020 Seizure 08/19/2020 Immunizations Immunization Administration Dates Next Due (PNEUMOVAX 23)(50 YRS UP) PN EUMOCOCCAL POLYSACCHARIDE (PPV23) 0.5 ML, IM 05/18/2020 (SPIKEVAX) (12 YRS UP PRIMAR Y SERIES) COVID-19 VACCINE - MRNA-1273(PF) 100 MCG/0.5 ML IM SUSP 08/21/2020 INFLUENZA VACCINE QUADRIVALENT 6 MOS UP PF IM Influenza Seasonal Unspecified Formulation IM ,01/21/2019 Social History Tobacco Use Types Packs/Day Years Used Date Smoking Tobacco: Every Day Cigarettes 1 25 Smokeless Tobacco: Never Tobacco Cessation:Ready to Q uit: No; Counseling Given: Yes Alcohol Use Standard Drinks/Week Comments Not Currently 0 (1 standard drink = 0.6 oz pur e alcohol) Sex and Gender Information Value Date Recorded Sex Assigned at Not on file Legal Sex Male 9:13 AM CDT Gender Identity Not on file Sexual Orientation Not on file Last Filed Vital Signs Vital Sign Reading Time Taken Comments Blood Pressure 122/78 11/18/2020 11:11 AM CDT Pulse 93 11/18/2020 11:11 AM CDT Temperature 36.4 C (97.6 F) 11/18/2020 11:11 AM CDT Respiratory Rate 16 11/18/2020 11:11 AM CDT Oxygen Saturation 93% 11/18/2020 11:11 AM CDT Inhaled Oxygen Concentration - - Weight 111.6 kg (246 lb) 11/18/2020 11:11 AM CDT Height 185.4 cm (6' 1 ) 11/18/2020 11:11 AM CDT Body Mass Index 32.46 11/18/2020 11:11 AM CDT Plan of Treatment Health Maintenance Due Date Last Done Comments DTAP/TDAP/TD VACCINES (1 - Tdap) 1993 HEPATITIS B VACCINES (1 of 3 - 19+ 3-dose series) 1993 COLORECTAL SCREENING 12/12/2019 Colorectal Cancer Screening 12/12/2019 FIT-DNA Q 3 years 12/12/2019 FIT/FOBT Q 1 year 12/12/2019 Flex Sig/CT Colonography Q 5 years 12/12/2019 DIABETES ANNUAL FOOT EXAM 05/18/2021 05/18/2020 DIABETES HBA1C Q 6 MONTHS 05/20/20212020, 08/06/2020, 05/10/2020, Additional history exists DIABETES ANNUAL RETINAL EXAM 11/18/2021 11/18/2020 DIABETES MICROALBUMIN ANNUAL SCREEN 11/18/2021 11/18/2020 LDL CHOLESTEROL ANNUAL 11/18/2021 , 05/10/2020, 11/13/2016 Preventative Visit-Managed Medicaid 12/30/2022 12/29/2021 ZOSTER VACCINE (1 of 2) 2024 INFLUENZA VACCINE (#1) 2024 0, 01/24/2019, 01/21/2019 COVID-19 Vaccine (2 - 2024-2 6 season) 2025 08/21/2020 Procedures Procedure Name Priority Date/Time Associated Diagnosis Comments MICROALBUMIN/CREATIN INE RATIO, RANDOM UR Routine 11/18/2020 11:36 AM CDT Type 2 diabetes mellitus with hyperglycemia, without long-term current use of insulin ([facility]) LIPID PANEL Routine 11/18/2020 11:36 AM CDT Type 2 diabetes mellitus with hyperglycemia, without long-term current use of insulin ([facility]) HEMOGLOBIN A1C Routine 11/18/2020 11:36 AM CDT Type 2 diabetes mellitus with hyperglycemia, without long-term current use of insulin ([facility]) from Last 3 Months or Most Recently Relevant to Health Maintenance Results * MICROALBUMIN/CREATININE RATIO, RANDOM UR (11/18/2020 11:36 AM CDT) Creatinine, Urine 119 20 - 320 mg/dL [facility] MICROALBUMIN, URINE 0.3 See Note: mg/dL [facility] Comment: Reference Range: Reference Range Not established MICROALBUMIN/CREAT RATIO, UR 3 <30 mcg/mg creat [facility] Comment: The ADA defines abnormalities in albumin excretion as follows: Category Result (mcg/mg creatinine) Normal <30 Microalbuminuria 30-299 Clinical albuminuria > OR = 300 The ADA recommends that at least two of three specimens collected within a 3-6 month period be abnormal before considering a patient to be within a diagnostic category. Test Performed at: [facility] [address] [place] [address] Lan Vicente D.O., MPH Urine URINE SPECIMEN OBTAINED BY CLEAN CATCH PROCEDURE / Unknown 11/18/2020 11:36 AM CDT 11/19/2020 2:39 AM CDT Jamie Arroyo MD URINE ORDERABLES Final Re sult Performing Organization Address [facility]/ZIP Co de Phone Number [facility] [place] [address] [place] [address] * (ABNORMAL) HEMOGLOBIN A1C (11/18/2020 11:36 AM CDT) HEMOGLOBIN A1C 8.0(H) <5.7 % of total Hgb [facility] [employer] [place] Comment: For someone without known diabetes, a [...] A1c for diagnosis of diabetes for children. Test Performed at: [facility] [address] [place] [address] Lan Vicente D.O., MPH Blood 11/18/2020 11:3 6 AM CDT 11/19/2020 2:39 AM CDT Jamie Arroyo MD CHEMISTRY ORDERABLES Elza l Result Performing Organization Address [facility]/ZIP Co de Phone Number [facility] [place] [address] [place] [address] * (ABNORMAL) LIPID PANEL (11/18/2020 11:36 AM CDT) CHOLESTEROL 171 <200 mg/dL [facility] HDL 28(L) > OR = 40 mg/dL [facility] [employer] [place] TRIGLYCERIDE 406(H) <150 mg/dL [facility] [employer] [place] Comment: If a non-fasting specimen was collected, consider repeat triglyceride testing on a fasting specimen if clinically indicated. Miguelina et al. J. of Clin. Lipidol. 2015;9:129-169. LDL CALCULATED mg/dL (calc) [facility] Comment: LDL cholesterol not calculated. Triglyceride levels greater than 400 mg/dL invalidate calculated LDL results. Reference range: <100 Desirable range <100 mg/dL for primary prevention; <70 mg/dL for patients with CHD or diabetic patients with > or = 2 CHD risk factors. LDL-C is now calculated using the Mickey-Lc calculation, which is a validated novel method providing better accuracy than the Friedewald equation in the estimation of LDL-C. Mickey SS et al. JOSÉ LUIS. 2013;310(19): 0787-3324 (http://education.CareSimply/faq/IUK406) CHOL/HDL RATIO 6.1(H) <5.0 (calc) [employer] [facility] TOTAL NON-HDL CHOL(LDL+VLDL) 143(H) <130 mg/dL (calc) [facility] [place] Comment: For patients with diabetes plus 1 major ASCVD risk factor, treating to a non-HDL-C goal of <100 mg/dL (LDL-C of <70 mg/dL) is considered a therapeutic option. Test Performed at: [facility] [address] [place] [address] Lan Vicente D.O., MPH Blood 11/18/2020 11:3 6 AM CDT 11/19/2020 2:39 AM CDT Jamie Arroyo MD CHEMISTRY ORDERABLES Elza khan Result [facility] [address] [place] [address] from Last 3 Months or Most Recently Relevant to Health Maintenance Insurance [place]ICA[place] Advance Directives For more information, please contact: [phone] * Full Code (Latest Code Status on File) Date Activated Date Inactivated Comments 01/20/2019 8:24 AM 01/20/2019 4:33 PM Care Teams Dielectric Tester Relationship Specialty Start Date End Date Jamie Arroyo MD [address] [address] PCP - General Family Practice 10/23/19
--- NOTE | 2025-04-04 11:08 | USR_ITS ---
PROCEDURE INFORMATION: Exam: US Right Limited Joint or Other Non-Vascular Extremity Structure Exam date and time: 04/04/2025 11:24 AM Age: 49 years old Clinical indication: Pain; Finger(s); Right little finger; Additional info: R hand 5th digit infection R/O abscess TECHNIQUE: Imaging protocol: US right limited joint or other nonvascular extremity structure. Real-time ultrasound with image documentation. Exam focused on the area of clinical interest. COMPARISON: CR XR hand RT min 3V* [id number] 04/02/2025 3:19 PM FINDINGS: Soft tissues: Unremarkable. No loculated collections. Other findings: Mild subcutaneous soft tissue edema along the 5th digit with predominantly anechoic 1.1 x 0.2 x 0.9 cm fluid collection which has some low-level internal echoes. US/US soft tissue/extremity [id number] IMPRESSION: Mild subcutaneous soft tissue edema with a small fluid collection along the 5th digit which could represent developing abscess.
--- NOTE | 2025-04-04 11:08 | XRR_ITS ---
PROCEDURE INFORMATION: Exam: XR Right Hand Exam date and time: 04/04/2025 11:34 AM Age: 49 years old Clinical indication: Swelling; Hand; Right; Additional info: RT hand pain/swelling/redness; Area of interest mip of RT 5th digit TECHNIQUE: Imaging protocol: Radiologic exam of the right hand. Views: 3 or more views. COMPARISON: CR XR hand RT min 3V* [id number] 04/02/2025 3:19 PM FINDINGS: Bones/joints: No acute fracture or dislocation. Soft tissues: Soft tissue swelling within the 5th digit, most pronounced along the proximal interphalangeal joint. XR/XR hand RT min 3V* [id number] IMPRESSION: 1. No acute osseous findings. 2. Soft tissue swelling in the 5th digit.
[2025-04-04 11:39] LABS: Hematocrit 41.1 % (37-53); Hemoglobin 13.20 g/dL (11.27-16.99); Mean Corpuscular HGB Conc 32.1 g/dL (30-55); Mean Corpuscular Hemoglobin 28.8 pg (27-33); Mean Corpuscular Volume 89.7 fl (82-101); Nucleated Red Blood Cells % 0 %; Platelet Count 173 10^3/cmm (157-399); Red Blood Count 4.58 10^6/uL (3.85-5.65); White Blood Count 9.80 10^3/uL (3.29-11.43)
[2025-04-04 11:46] VITALS: BP 127/92; PULSE 89; RESP 17; O2SAT 93
[2025-04-04 11:55] LABS: Anion Gap 18.8 (5-19); Blood Urea Nitrogen 10 mg/dL (6-20); Calcium 8.7 mg/dL (8.5-10.5); Carbon Dioxide 20 mmol/L (22-29); Chloride 106 mmol/L (98-107); Creatinine Clr Calc Pharmacy 138.6925; Glucose 148 mg/dL (65-115); Osmolality Calculated 292 mOsm/kg (285-295); Potassium 4.8 mmol/L (3.5-5.1); Sodium 140 mmol/L (136-145)
--- NOTE | 2025-04-04 12:00 | W.ED.WOUNDLC ---
HPI - Wound/Laceration General: Chief Complaint: Wound/Laceration Stated Complaint: R small finger swelling and Red Time Seen by Provider: 04/04/25 10:15 History of Present Illness: 49-year-old male history of insulin-dependent diabetes presenting emergency department with approximately 3-day history of right hand fifth digit pain swelling and redness, seen by urgent care on started on Bactrim which she has not been on for 48 hours now without improvement, reports that he feels that the infection is worsening, no fever Related Data Home Medications ?Medication ?Instructions ?Recorded ?Confirmed cetirizine 10 mg tablet (Zyrtec) 10 mg PO DAILY 06/29/19 04/02/25 duloxetine 60 mg capsule,delayed 120 mg PO BEDTIME 06/29/19 04/02/25 release (Cymbalta) lisinopril 10 mg tablet 10 mg PO DAILY 06/29/19 04/02/25 Held on 02/18/24. Instructions: Until seen by PCP metformin 1,000 mg tablet 1,000 mg PO BID 06/29/19 04/02/25 metoprolol tartrate 50 mg tablet 50 mg PO BID 06/29/19 04/02/25 omeprazole 40 mg capsule,delayed 40 mg PO DAILY 06/29/19 04/02/25 release rosuvastatin 40 mg tablet (Crestor) 40 mg PO QPM 08/06/20 04/02/25 cyclobenzaprine 10 mg tablet 5 - 10 mg PO TID PRN Muscle Spasm 11/14/23 04/02/25 gabapentin 400 mg capsule 400 mg PO TID 11/14/23 04/02/25 gabapentin 800 mg tablet 800 mg PO TID 11/14/23 04/02/25 hydrochlorothiazide 12.5 mg tablet 12.5 mg PO DAILY 11/14/23 04/02/25 Held on 02/18/24. Instructions: Until seen by PCP insulin aspart U-100 100 unit/mL See Rx Instructions .Route .COMPLEX 11/14/23 04/02/25 (3 mL) subcutaneous pen insulin glargine 100 unit/mL (3 40 unit SUBCUT BID 11/14/23 04/02/25 mL) subcutaneous pen (Lantus Solostar U-100 Insulin) semaglutide 1 mg/dose (4 mg/3 mL) 1 mg SUBCUT Q7D 11/14/23 04/02/25 subcutaneous pen injector (Ozempic) terazosin 1 mg capsule 1 mg PO BEDTIME 11/14/23 04/02/25 diclofenac sodium 50 mg 50 mg PO BID 10/20/24 04/02/25 tablet,delayed release Previous Rx's ?Medication ?Instructions ?Recorded mupirocin 2 % topical ointment 1 applic topical TID 7 days #22 09/25/24 (Centany) grams prednisone 20 mg tablet 20 mg PO DAILY #5 tabs 02/09/25 triamcinolone acetonide 0.1 % 1 applic topical BID PRN rash 2 02/09/25 topical ointment weeks #30 grams sulfamethoxazole 800 1 tab PO BID 10 days #20 tabs 04/02/25 mg-trimethoprim 160 mg tablet (Bactrim DS) cephalexin 500 mg capsule 500 mg PO TID 10 days #30 caps 04/04/25 doxycycline monohydrate 100 mg 100 mg PO BID 10 days #20 caps 04/04/25 capsule Allergies Allergy/AdvReac Type Severity Reaction Status Date / Time atorvastatin (From Lipitor) Allergy ADR-Muscle Verified 04/04/25 10:18 Pain PFSH ED PFSH: Medical History Diabetes Social History Smoking and tobacco/nicotine status: former use of tobacco/nicotine Physical Exam Narrative: EXAM NARRATIVE: Gen: A&Ox4, no acute distress, nontoxic appearing HEENT: Normocephalic, atraumatic, no scleral icterus, external ears normal, moist mucous membranes Neck: Supple, full range of motion, no observable masses Lungs: No Respiratory distress, Lungs clear to auscultation bilaterally no rales, rhonchi, wheezing CV: Regular rate and rhythm, no murmur, no pitting edema to lower extremities bilaterally Abdomen: Soft, nondistended, nontender to palpation MSK: Patient with right hand with focal area of redness swelling induration and mild fluctuance to the dorsal aspect of the right fifth digit PIP joint, there is some surrounding erythema of the finger extending into the distal part of the hand, there is no fluctuance on the volar surface of the finger, there is no fusiform swelling Neuro: Alert and oriented, no slurred speech, sensation and strength grossly intact all 4 extremities Psych: Appropriate for situation. Procedures Abscess I/D Site: hand (5th digit doral PIP region) Side (if applicable): right Local Anesthetic: lidocaine 1% Amount of anesthesia used (mL): 5 Technique: incised with #11 blade Amount of fluid expressed (mL): 1 Irrigation: Yes Packing used?: none Course Reevaluation(s): Reevaluation #1: I reevaluated the patient at this time, went over his blood work and his ultrasound finding of a small dorsal abscess, at this time I did offer him transfer to a tertiary care facility with hand surgery capabilities for formal evaluation. At this time he prefers to avoid transfer, given that his symptoms are acute in onset, he has no significant symptoms of sepsis and the abscess is located dorsally without obvious indication of tendon involvement or flexor tenosynovitis, I did discuss an alternative possibility of incision and drainage in the emergency department with transitioning of antibiotics to doxycycline and Keflex after the dose of IV antibiotics he received in the ER, with follow-up with orthopedic surgery in the coming days. I did describe to him that it would be very important for him to come back to the ER immediately if his symptoms continue to worsen as that could indicate the need for operative debridement from a dedicated hand specialist. At this time he did endorse understanding of both options and strongly prefers the second plan of care and understands that he would need to come back if it is getting worse. This appears like a medically reasonable course of action in my judgment, will have patient follow-up with orthopedic surgery outpatient to track course of infection. Time: 12:29 Reevaluation #2: Patient status post successful I&D, expression of approximately 1 to 2 cc of purulent fluid, wound wrapped, DC on doxycycline and Keflex with follow-up orthopedics, strict return precautions for any worsening or lack of improvement Time: 13:50 Vital Signs: Vital signs: Vital Signs Temperature 99.0 F 04/04/25 10:14 Pulse Rate 89 04/04/25 11:46 Respiratory Rate 17 04/04/25 11:46 Blood Pressure 127/92 04/04/25 11:46 Pulse Oximetry 93 04/04/25 11:46 Oxygen Delivery Me thod Room Air 04/04/25 11:46 MDM - Wound/Laceration Medical Decision Making 49-year-old male history of insulin-dependent diabetes presenting emergency department with 3-day history of right hand infection, on Bactrim x 2 days without improvement, on exam there appears to be a small abscess on the dorsum of the PIP joint of the fifth digit with surrounding cellulitis, the volar surface appears less involved at this time and I have a lower suspicion for flexor tenosynovitis, plan for x-ray, labs, ultrasound to assess for abscess formation, reassess for disposition Lab Data Labs with elevated CRP, normal lactate normal white count 04/04/25 11:30 04/04/25 11:30 Radiology Impressions Hand X-Ray 04/04/25 11:08 IMPRESSION: 1. No acute osseous findings. 2. Soft tissue swelling in the 5th digit. Soft Tissue Ultrasound 04/04/25 11:08 IMPRESSION: Mild subcutaneous soft tissue edema with a small fluid collection along the 5th digit which could represent developing abscess. Laboratory Results WBC 9.80 10^3/uL (3.29-11.43) 04/04/25 11:30 RBC 4.58 10^6/uL (3.85-5.65) 04/04/25 11:30 Hgb 13.20 g/dL (11.27-16.99) 04/04/25 11:30 Hct 41.1 % (37-53) 04/04/25 11:30 MCV 89.7 fl (82-101) 04/04/25 11:30 MCH 28.8 pg (27-33) 04/04/25 11:30 MCHC 32.1 g/dL (30-55) 04/04/25 11:30 RDW 13.4 % (12.1-15.1) 04/04/25 11:30 Plt Count 173 10^3/cmm (157-399) 04/04/25 11:30 MPV 10.7 fL (7.4-10.4) H 04/04/25 11:30 Neut % (Auto) 65.4 % 04/04/25 11:30 Lymph % (Auto) 20.4 % 04/04/25 11:30 Parmer % (Auto) 8.8 % 04/04/25 11:30 Eos % (Auto) 4.6 % 04/04/25 11:30 Baso % (Auto) 0.5 % 04/04/25 11:30 Neut # (Auto) 6.41 10^3/uL (1.8-7.7) 04/04/25 11:30 Lymph # (Auto) 2.0 10^3/uL (0.8-4.8) 04/04/25 11:30 Parmer # (Auto) 0.9 10^3/uL (0.2-0.9) 04/04/25 11:30 Eos # (Auto) 0.5 10^3/uL (0.0-0.8) 04/04/25 11:30 Baso # (Auto) 0.1 10^3/uL (0.0-0.1) 04/04/25 11:30 Nucleated RBC % (auto) 0 % 04/04/25 11:30 Nucleated RBCs # 0.0 /100WBC 04/04/25 11:30 ESR 10 mm/hr (0-10) 04/04/25 11:30 Sodium 140 mmol/L (136-145) 04/04/25 11:30 Potassium 4.8 mmol/L (3.5-5.1) 04/04/25 11:30 Chloride 106 mmol/L (98-107) 04/04/25 11:30 Carbon Dioxide 20 mmol/L (22-29) L 04/04/25 11:30 Anion Gap 18.8 (5-19) 04/04/25 11:30 BUN 10 mg/dL (6-20) 04/04/25 11:30 Creatinine 0.8 mg/dL (0.7-1.2) 04/04/25 11:30 GFR Calculation 102.3 mL/min (90-130) 04/04/25 11:30 Glucose 148 mg/dL (65-115) H 04/04/25 11:30 Calculated Osmolality 292 mOsm/kg (285-295) 04/04/25 11:30 Lactic Acid 1.2 mmol/L (0.5-2.2) 04/04/25 11:30 Calcium 8.7 mg/dL (8.5-10.5) 04/04/25 11:30 C-Reactive Protein 38.4 mg/L (0.0-4.9) H 04/04/25 11:30 All radiology interpretation(s) finalized by discharge ED provider radiology interpretation(s): Hand x-ray negative for acute bony pathology, ultrasound soft tissue showing dorsal abscess Discharge Plan Discharge Patient Disposition: Home Clinical Impression: Abscess of finger of right hand Condition: Stable Prescriptions: New cephalexin 500 mg capsule 500 mg PO TID 10 Days Qty: 30 0RF doxycycline monohydrate 100 mg capsule 100 mg PO BID 10 Days Qty: 20 0RF No Action rosuvastatin [Crestor] 40 mg tablet 40 mg PO QPM mupirocin [Centany] 2 % ointment 1 applic topical TID 7 Days Qty: 22 0RF prednisone 20 mg tablet 20 mg PO DAILY Qty: 5 0RF triamcinolone acetonide 0.1 % ointment 1 applic topical BID PRN (Reason: rash) 14 Days Qty: 30 2RF sulfamethoxazole-trimethoprim [Bactrim DS] 800-160 mg tablet 1 tab PO BID 10 Days Qty: 20 0RF diclofenac sodium 50 mg tablet,delayed release (DR/EC) 50 mg PO BID cetirizine [Zyrtec] 10 mg Tablet 10 mg PO DAILY omeprazole 40 mg Capsule,Delayed Release(Dr/Ec) 40 mg PO DAILY metformin 1,000 mg Tablet 1,000 mg PO BID lisinopril 10 mg Tablet 10 mg PO DAILY metoprolol tartrate 50 mg Tablet 50 mg PO BID duloxetine [Cymbalta] 60 mg Capsule,Delayed Release(Dr/Ec) 120 mg PO BEDTIME gabapentin 400 mg capsule 400 mg PO TID gabapentin 800 mg tablet 800 mg PO TID hydrochlorothiazide 12.5 mg tablet 12.5 mg PO DAILY cyclobenzaprine 10 mg tablet 5 - 10 mg PO TID PRN (Reason: Muscle Spasm) terazosin 1 mg capsule 1 mg PO BEDTIME insulin aspart U-100 100 unit/mL (3 mL) insulin pen See Rx Instructions .ROUTE .COMPLEX Rx Instructions: NJECT 10 TO 30 UNITS THREE TIMES DAILY SUB-Q WITH MEALS, ADJUST BASED ON SLIDING SCALE, MAX DAILY DOSAGE OF 90 UNITS. Lantus Solostar U-100 Insulin 100 unit/mL (3 mL) insulin pen 40 unit SUBCUT BID Ozempic 1 mg/dose (4 mg/3 mL) pen injector 1 mg SUBCUT Q7D Rx Instructions: ON FRIDAYS Discharge Orders: Discharge ED (Routine); Ordered 04/04/25 Ordered By: Ashkan Arevalo Referrals: Jamie Arroyo [Primary Care Provider, Family Practice] Malcolm Hopper DO [Physician, Orthopedics] Patient Instructions: Patient Portal & Selvin Instructions, Abscess Follow-up (ED), Abscess Incision and Drainage (DC) Activity Restrictions/Additional Instructions: You were seen for an infection to your right little finger, your blood work did not show any signs of systemic infection or sepsis. An ultrasound showed a small abscess which was drained in the emergency department, I recommend you take the antibiotics as prescribed, closely monitor your symptoms and return if at any point they are worsening or fail to improve within 2 to 3 days. Follow-up with outpatient orthopedic surgery for evaluation if symptoms improving Print Language: Belarusian Coding Level of Care Code ED Extrusion Manager for Wendy Weeks
[2025-04-04 12:11] LABS: Lactic Sepsis W/Reflex 1.2 mmol/L (0.5-2.2)
[2025-04-04 13:59] VITALS: BP 134/81; BP 134/84; PULSE 85; O2SAT 93; O2SAT 95
--- NOTE | 2025-04-06 07:17 | DCPLANNER ---
messaged ortho for er f/u
== END 2025-04-04 14:05 | disposition home or self-care (01) ==
PROVIDERS: Emergency Provider Student in an Organized Health Care Education/Training Program; PCP Family Medicine
DX: L02.511 Cutaneous abscess of right hand (principal); Z79.84 Long term (current) use of oral hypoglycemic drugs; Z79.4 Long term (current) use of insulin; Z87.891 Personal history of nicotine dependence; E11.9 Type 2 diabetes mellitus without complications
CPT/HCPCS: 10060; 36415; 73130; 76882; 80048; 83605; 85025; 85651; 86140; 87040; 87070; 87075; 87077; 87186; 87205; 96365; 96366; 96375; 99284; J1885; J3372; J9999

== ENCOUNTER 2025-04-05 14:52 | Emergency (ER) | payer MEDICAID, SELFPAY ==
--- OUTSIDE RECORDS SUMMARY | 2025-04-03 06:15 | XMS_ITS | Encounter Summary ---
Author Organization [facility] Address [address] [place] [address] Care Team Providers Care Grout Worker Name Role Phone Jamie Arroyo MD Primary Care Provider [phone] Reason for Visit * Reason Comments Hand Pain Patient knicked his 5th digit on his right hand on Sunday while doing dishes. Patient states it started becoming red and inflamed so he sought treatment at an urgent care clinic yesterday. Urgent care prescribed him Bactrim DS to take. Patient states last night he was unable to sleep due to the pain and increased swelling/redness. Redness is now going from that finger down into his hand. Patient rates pain 8/10 with no movement, sharp, throbbing and burning and constant. Encounter Details Date Type Department Care Team (Late st Contact Info) Description 04/03/2025 6:15 AM WIRER - 04/03/2025 9:07 AM [facility] Emergency [facility] Emergency Medicine [address] [place] [address] Dario Hernandez MD [address] [place] [phone] Cellulitis of finger of right hand (Primary Dx) Discharge Disposition: Home or Self Care Social History Tobacco Use Types Packs/Day Years Used Date Smoking Tobacco: Former Cigarettes 1 25 0 10/1997 - 10/2022 Smokeless Tobacco: Never Alcohol Use Standard Drinks/Week Comments Yes 7 (1 standard drink = 0.6 oz pur e alcohol) Food Insecurity Answer Date Recorded Do you find you are eating l ess than you should because you can t pay for food? No 04/03/2025 Transportation Needs Answer Date Record ed Have you gone without health care because you didn t have a way to get there? Or worry about transportation for future doctor visits, brass pickler medication, etc.? No 2024 Housing Stability Answer Date Recorded Do you worry you won t have a steady place to sleep or struggle to pay rent or mortgage? No 04/03/2025 Utility Needs Answer Date Recorded Do you have difficulty payin g for utility costs (electric, water or gas bills)? No 04/03/2025 Medication Needs Answer Date Recorded Have you skipped taking medi cation due to cost or worry you can t afford new medications? No 04/03/2025 Feeling Safe Answer Date Recorded Are you in a relationship wi th someone who hurts you emotionally and/or physically? No 04/03/2025 Sex and Gender Information Value Date Recorded Sex Assigned at Not on file Legal Sex Male 3:40 PM WIRER Gender Identity Male 02/23/2023 5:43 PM CDT Sexual Orientation Lesbian or Lopez 02/23/2023 5: 43 PM CDT documented as of this encounter Last Filed Vital Signs Vital Sign Reading Time Taken Comments Blood Pressure 147/98 04/03/2025 9:00 AM WIRER Pulse 87 04/03/2025 9:00 AM WIRER Temperature 36 C (96.8 F) 04/03/2025 6:22 AM WIRER Respiratory Rate 20 04/03/2025 9:00 AM WIRER Oxygen Saturation 95% 04/03/2025 9:00 AM WIRER Inhaled Oxygen Concentration - - Weight 100.9 kg (222 lb 6.4 oz) 04/03/2025 6:22 AM WIRER Height 185.4 cm (6' 1 ) 04/03/2025 6:22 AM WIRER Body Mass Index 29.34 04/03/2025 6:22 AM WIRER documented in this encounter Discharge Instructions * Discharge Instructions* Dario Hernandez MD - 04/03/2025 8:58 AM WIRER You are seen in the ER today for infection of your right hand. Based on history physical exam and labs and imaging this is likely cellulitis. I will start you on Keflex which you will take for 7 days. If you develop increasing redness, streaking in your arm or tenderness in your ligament extensors or flexors please return to the ER for the treatment and evaluation. R * Attachments The following attachments cannot be sent through Care Everywhere. * Cellulitis (Hong Konger) * Cephalexin (H[place] Konger) documented in this encounter Medications at Time of Discharge cephALEXin (KEFLEX) 500 mg capsule Take 1 Capsule (500 mg) by mouth 4 times daily for 7 days. 28 Capsule 5 04/10/20 25 semaglutide (Ozempic) 2 mg/dose (8 mg/3 mL) Pen InjectorIndications :Type 2 diabetes mellitus with hyperglycemia, without long-term current use of insulin (CMS/HCC) Inject 2 mg by subcutaneous injection every 7 days. 9 mL 1 5 metoprolol tartrate 75 mg TabletIndications:B enign hypertension,SVT (supraventricular tachycardia) Take 75 mg by mouth 2 times daily. 200 Tablet 2 5 Lantus Solostar U-100 Insulin 100 unit/mL (3 mL) solution for injectionIndication s:Type 2 diabetes mellitus with diabetic polyneuropathy, without long-term current use of insulin (CMS/HCC) Inject 40 Units by subcutaneous injection 2 times daily. 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 1 mL 2 5 Blood-Glucose Sensor (Dexcom G7 Sensor) DeviceIndications:T ype 2 diabetes mellitus with hyperglycemia, without long-term current use of insulin (CMS/HCC) Discreetly worn under clothing to measure glucose levels just underneath the skin. Must change sensor every 10 days 4 Each 5 omeprazole (PriLOSEC) 40 mg Capsule, Delayed Release(E.C.)Indica tions:Gastroesophag eal reflux disease without esophagitis Take 1 Capsule (40 mg) by mouth daily. 100 Capsule 2 5 rosuvastatin (CRESTOR) 40 mg tabletIndications:T ype 2 diabetes mellitus with hyperglycemia, without long-term current use of insulin (CMS/HCC),Mixed hyperlipidemia Take 1 Tablet (40 mg) by mouth daily. 100 Tablet 2 5 DULoxetine (CYMBALTA) 60 mg Capsule, Delayed Release(E.C.)Indica tions:Recurrent major depressive disorder, in full remission Take 2 Capsules (120 mg) by mouth daily at bedtime. 200 Capsule 2 5 diclofenac sodium (VOLTAREN) 50 mg Tablet, Delayed Release (E.C.)Indications:G eneralized osteoarthritis of multiple sites Take 1 Tablet (50 mg) by mouth 2 times daily with meals. Replaces meloxicam 60 Tablet 5 5 TechLITE Pen Needle 32 gauge x Needle USE DIRECTED TO INJECT INSULIN 4 TIMES DAILY 400 Each 3 5 gabapentin (NEURONTIN) 800 mg tabletIndications:T ype 2 diabetes mellitus with hyperglycemia, without long-term current use of insulin (CMS/HCC) Take 1 Tablet (800 mg) by mouth 3 times daily. 90 Tablet 11 5 gabapentin (NEURONTIN) 400 mg capsule Take 1 Capsule (400 mg) by mouth 3 times daily. 90 Capsule 11 5 metFORMIN (GLUCOPHAGE) 1,000 mg tabletIndications:T ype 2 diabetes mellitus with hyperglycemia, without long-term current use of insulin (CMS/HCC) Take 1 Tablet (1,000 mg) by mouth 2 times daily with meals. 200 Tablet 3 4 terazosin (HYTRIN) 1 mg capsuleIndications: Benign prostatic hyperplasia with nocturia Take 1 Capsule (1 mg) by mouth daily at bedtime. 100 Capsule 3 4 insulin lispro (HumaLOG KwikPen Insulin) 100 unit/mL pen syringe INJECT 10-30 UNITS SUB-Q THREE TIMES DAILY WITH MEALS ADJUST BASED ON SLIDING SCALE MAX DAILY DOSAGE OF 90 UNITS 30 mL 11 4 cyclobenzaprine (FLEXERIL) 10 mg tablet TAKE 1/2 TO 1 (ONE-HALF TO ONE) TABLET BY MOUTH THREE TIMES DAILY NEEDED 60 Tablet 2 4 Blood-Glucose Meter,Continuous (Dexcom G7 Leather Tacker)Indication s:Type 2 diabetes mellitus with hyperglycemia, without long-term current use of insulin (CMS/HCC) Use to monitor blood glucose continuously throughout the day 1 Each 11 4 Blood-Glucose Sensor (Dexcom G6 Sensor) Device Discreetly worn under clothing to measure glucose levels just underneath the skin. Must change sensor every 10 days. 1 Each 12 4 ALPRAZolam (Xanax) 0.25 mg tabletIndications:B ereavement Take 1 Tablet (0.25 mg) by mouth 2 times daily as needed for Anxiety. 10 Tablet 4 Blood-Glucose Transmitter (Dexcom G6 Transmitter) Device FASTEN ON TOP OF THE SENSOR TO WIRELESSLY SEND DATA TO THE [employer]BE[employer] PIPE SUPERVISOR MUST BE CHANGED EVERY 3 MONTHS 1 Each 3 4 Blood-Glucose Meter,Continuous (Dexcom G6 Leather Tacker) Use to monitor blood glucose continuously throughout the day. 1 Each 5 3 oxygen home deliveryIndications :Nocturnal hypoxemia Home Oxygen Concentrator yes at , 2 L/M Sleep, Delivery Device: Nasal CannulaPortability : no, May provide device best for patient needs(E system,home fill, conserving device)Length of Need: 99 months 1 Each 0 1 naloxone (NARCAN) 4 mg/spray [place], Non-Aerosol EMERGENCY USE ONLY: Administer 1 spray (4 mg) in one nostril one time. May repeat in alternating nostrils every 2-3 min until responsive or EMS arrives. 2 Each 3 1 cetirizine (ZyrTEC) 10 mg tablet Take 10 mg by mouth daily. 9 nitroglycerin (NITROSTAT) 0.4 mg Tablet, Sublingual Place 1 Tablet (0.4 mg) under tongue every 5 minutes as needed for Chest Pain (If no relief after 2nd nitro, call 911.). 25 Tablet 3 9 documented as of this encounter ED Notes * Valentin Cueto RN - 04/03/2025 6:28 AM CST Panda Gonzalez is a 49 y.o. male who arrives to the Emergency Department by private car. 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 Chief Complaint Patient presents with Hand Pain Patient knicked his 5th digit on his right hand on Sunday while doing dishes. Patient states it started becoming red and inflamed so he sought treatment at an urgent care clinic yesterday. Urgent care prescribed him Bactrim DS to take. Patient states last night he was unable to sleep due to the pain and increased swelling/redness. Redness is now going from that finger down into his hand. Patient rates pain 8/10 with no movement, sharp, throbbing and burning and constant. VSS, aaox4, CANCHOLA, behavior appropriate to circumstance, no acute distress at this time. Airway patent, self-maintained with even, non-labored respirations. Perfusion within normal limits for age. Skincolor normal for ethnicity, warm, dry and intact. ID band present. Patient in bed in low position with wheels locked. Patient informed of plan of care. Patient verbalized understanding and in agreement with plan of care, all questions answered. Comfort measures offered. Monitors on and audible. Patient placed on pulse ox and blood pressure monitoring. Call light at bedside. Patient encouraged to call with needs. Will continue to monitor. Weapons assessment performed. Education provided regarding facility weapon storage and securement policy. Panda Gonzalez denied possession of any weapons or firearms at this time R * Dario Hernandez MD - 04/03/2025 6:13 AM CST 04/03/25 6:52 AM HISTORY OF PRESENT ILLNESS History of Present Illness This is a 49-year-old male with a history of hand infection presenting with pain and swelling in the hand. The patient reports experiencing pain in his hand for the past 24 hours, which initially started inthe knuckle and has since spread bilaterally down the hand and is extending into the finger. He describes the pain as severe enough to disrupt his sleep, allowing him only an hour of rest. The pain is exacerbated by swelling. 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 He reports no tenderness or drainage from the affected area. He sought medical attention from an urgent care facility where he was prescribed Bactrim DS, which he started taking last night. He was also advised to take ibuprofen and use Epsom salt, but these interventions have not resulted in any improvement. 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 PAST MEDICAL HISTORY REVIEWED MEDICAL: Patient has a past medical history of Anxiety, Arthritis, Chronic hepatic failure (CMS/HCC), Depression, Diabetes mellitus (CMS/HCC), GERD (gastroesophageal reflux disease), Headache, History of pulmonary embolism (02/11/2019), HTN (hypertension), Hyperlipemia, Migraine, Neuropathy, Nodule of right lung (02/11/2019), Psychosis (CMS/HCC), Seizure disorder (CMS/HCC), and Sleep apnea. SURGICAL: Patient has a past surgical history that includes tonsillectomy and heart catheterization. ALLERGIES Atorvastatin PHYSICAL EXAM INITIAL VS BP: 133/84 (04/03/25621), Heart Rate: 99 bpm (04/03/25621), Resp: 18 (04/03/25621), Pulse: (!) 104 (04/03/25714), Temp: 96.8 ??F (36 ??C) (04/03/25621), Temp src: Temporal (04/03/25621), SpO2: 96 % (04/03/25621), Height: 6' 1 (185.4 cm) (04/03/25621), Weight: 100.9 kg (222 lb 6.4 oz) (04/03/25621), BMI (Calculated): (!) 29.35 (04/03/25621) No LMP for male patient. Blood pressure 135/76, pulse 89, temperature 96.8 ??F (36 ??C), temperature source Temporal, resp. rate 18, height 6' 1 (1.854 m), weight 100.9 kg (222 lb 6.4 oz), SpO2 93%. Physical Exam Physical Exam General: No acute distress Musculoskeletal: Right hand, no deformity, reduced range of motion due to tightness Integumentary: Redness of fifth finger PIP joint, swelling in fifth finger and palm of hand. No streaking redness, no tenderness along ligaments no redness along ligaments. DIAGNOSTICS LAB: CBC WITH DIFFERENTIAL - Abnormal Result Value WBC 10.2 (*) RBC 4.37 (*) HEMOGLOBIN 12.5 (*) HEMATOCRIT 37.1 (*) MCV 84.9 MCH 28.6 MCHC 33.7 RDW 13.2 RDW-STDEV 41.2 PLATELETS 178 MPV 10.7 NEUTROPHILS 66 LYMPHOCYTES 20 (*) MONOCYTES 11 EOSINOPHILS 3 BASOPHILS 0 IMMATURE GRANULOCYTES 0 NEUTROPHIL ABSOLUTE 6.79 (*) LYMPHOCYTE ABSOLUTE 1.99 MONOCYTE ABSOLUTE 1.10 (*) EOSINOPHIL ABSOLUTE 0.29 BASOPHILS ABSOLUTE 0.03 IMMATURE GRANULOCYTES ABSOLUTE 0.02 COMPREHENSIVE METABOLIC PANEL - Abnormal SODIUM 136 POTASSIUM 4.1 CHLORIDE 102 CO2 22 CALCIUM 8.9 BUN 10 CREATININE 0.96 GLUCOSE 237 (*) TOTAL PROTEIN 6.4 (*) ALBUMIN 4.3 BILIRUBIN TOTAL 0.2 ALKALINE PHOSPHATASE 46 AST 30 ALT 36 GFR >60 ANION GAP 12 RADIOLOGY: CT HAND W CONTRAST RIGHT Radiologist Impression IMPRESSION: Please see below. Exam: CT HAND W CONTRAST RIGHT Date/Time of Exam: 04/03/2025 8:09 AM Reason For Exam: Soft tissue infection suspected, hand, xray done. Diagnosis: See Reason for Exam. Technique: CT of the right hand was performed following the administration of intravenous contrast. Contrast: IOPAMIDOL 61 % INTRAVENOUS SOLUTION (SINGLE USE VIAL) Given:100 mL. Comparison: April 03, 2025 Impression: There is no evidence of acute fracture or dislocation. No findings to suggest acute osteomyelitis. No fluid collection or hematoma. There is mild nonspecific stranding along the dorsal aspect of the hand which could be secondary to cellulitis or edema. The vascular structures are patent. The visualized flexor and extensor tendons are grossly intact. No visualized joint effusion. Mild degenerative changes about the wrist and hand. EKG: Results Imaging CT scan shows infection in the soft tissue of the hand, not spreading into the ligaments. Results independently interpreted by Dario Hernandez MD PROCEDURES Procedures MEDICAL DECISION MAKING AND PLAN OF CARE Assessment & Plan Initial Assessment: 49-year-old male presenting with a hand infection, pain, and swelling for the past 24 hours, starting in the knuckle and spreading down the hand. ED Course: - CT scan performed, read by me, showing infection localized to soft tissue, no spread to ligaments. - Pain medication administered. - Ibuprofen and Tylenol recommended for pain and swelling. - Keflex prescribed for 7 days. Final Assessment: CT scan confirmed infection localized to soft tissue with no ligament involvement. Pain managed with ibuprofen and Tylenol. Keflex prescribed for 7 days. Clinical Impression: - Hand infection Disposition: - Discharge: Home, Return precautions given. Patient discharged with prescription for Keflex. - Follow-Up: Return if pain radiates up arm, significant redness, or streaking observed. Patient Education: Advised to monitor for pain radiating up the arm, significant redness, or streaking. Instructed to return for further evaluation if these symptoms occur. Informed about the potential need for surgical intervention if infection spreads to ligaments. Medical Decision Making Amount and/or Complexity of Data Reviewed Radiology: ordered. Risk Prescription drug management. Clinical Scoring & Consults Medications Administered During the ED Stay from 04/03/2025 0614 to 04/03/2025899 Date/Time Order Dose Route Action 04/03/2025718 WIRER ketorolac (TORADOL) injection 15 mg 15 mg IV Given 04/03/2025808 WIRER iopamidoL (ISOVUE-300) 61% injection (single-use vial) 100 mL 100 mL IV Contrast Given 04/03/2025808 WIRER sodium chloride bacteriostatic 0.9 % injection 10 mL 10 mL IV Given . New Prescriptions for this Encounter CEPHALEXIN (KEFLEX) 500 MG CAPSULE Take 1 Capsule (500 mg) by mouth 4 times daily for 7 days. LAST VS BP: 135/76 (04/03/25829), Heart Rate: 99 bpm (04/03/25621), Resp: 18 (04/03/25829), Pulse: 89(04/03/25829), Temp: 96.8 ??F (36 ??C) (04/03/25621), Temp src: Temporal (04/03/25621), SpO2:93 % (04/03/25829) CLINICAL IMPRESSION Diagnosis Diagnosis Comment Added By Time Added Cellulitis of finger of right hand [L03.011] Dario Hernandez MD 04/03/2025 8:57 AM DISPOSITION, EDUCATION AND MEDICATION RECONCILIATION Medications reconciled. See after visit summary for patient education on discharged patients. ED Disposition ED Disposition Discharge Condition Stable User Dario Hernandez MD Date/Time SunApr 03, 2025 8:57 AM Comment -- Diagnosis Diagnosis Comment Added By Time Added Cellulitis of finger of right hand [L03.011] Dario Hernandez MD 04/03/2025 8:57 AM R documented in this encounter Miscellaneous Notes * Gen AI HERIBERTO - GENERATIVE AI HANDOFF NOTE - 04/03/2025 10:26 AM CST ## ER_course: ## # DIAGNOSIS: Cellulitis of the finger of the right hand. The patient, Panda Gonzalez, a 49-year-old male, presented with severe hand pain and swelling, which started in the knuckle and spread down the hand. The pain was sharp, throbbing, burning, and constant, rated at 8/10, and disrupted his sleep. He had been prescribed Bactrim DS at an urgent care clinic but saw no improvement. # During the ER visit, a CT scan showed infection localized to the soft tissue of the hand, with no spread to ligaments. Abnormal lab findings included elevated glucose levels at 237 and a slightly elevated WBC count of 10.2. Pain was managed with ketorolac (Toradol) IV, and the patient was advised to take ibuprofen and Tylenol for pain and swelling. A new prescription for Keflex was provided for 7 days. ## Follow_up_orders: ## # The patient was discharged with a prescription for Keflex 500 mg to be taken four times daily for 7 days. # He was advised to monitor for pain radiating up the arm, significant redness, or streaking, and to return for further evaluation if these symptoms occur. # The patient was informed about the potential need for surgical intervention if the infection spreads to ligaments. ## Home_Situation: ## # No specific factors potentially impairing follow-up care were noted in the ER notes. 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 R documented in this encounter Plan of Treatment Upcoming Encounters Date Type Department Care Team (Late st Contact Info) Description 07/03/2025 4:20 PM WIRER Office Visit [address] [phone] Jamie Arroyo MD [address] [address] documented as of this encounter Procedures Procedure Name Priority Date/Time Associated Diagnosis Comments CT HAND W CONTRAST RIGHT Stat 04/03/2025 8:09 AM WIRER XR HAND 3+ VW RIGHT Stat 04/03/2025 7 :33 AM WIRER CBC WITH DIFFERENTIAL Stat 04/03/2025 7:10 AM WIRER COMPREHENSIVE METABOLIC PANEL Stat 04/03/2025 7:10 AM WIRER documented in this encounter Results * CT HAND W CONTRAST RIGHT (04/03/2025 8:09 AM WIRER) Anatomical Region Laterality Modality Wrist / Hand Computed Tomogra phy 04/03/2025 8:10 AM WIRER Impressions 04/03/2025 8:18 AM WIRER IMPRESSION: Please see below. Exam: CT HAND W CONTRAST RIGHT Date/Time of Exam: 04/03/2025 8:09 AM Reason For Exam: Soft tissue infection suspected, hand, xray done. Diagnosis: See Reason for Exam. Technique: CT of the right hand was performed following the administration of intravenous contrast. Contrast: IOPAMIDOL 61 % INTRAVENOUS SOLUTION (SINGLE USE VIAL) Given:100 mL. Comparison: April 03, 2025 Impression: There is no evidence of acute fracture or dislocation. No findings to suggest acute osteomyelitis. No fluid collection or hematoma. There is mild nonspecific stranding along the dorsal aspect of the hand which could be secondary to cellulitis or edema. The vascular structures are patent. The visualized flexor and extensor tendons are grossly intact. No visualized joint effusion. Mild degenerative changes about the wrist and hand. Narrative Procedure Note Vitaly Narayan MD - 04/03/2025 IMPRESSION: Please see below. Exam: CT HAND W CONTRAST RIGHT Date/Time of Exam: 04/03/2025 8:09 AM Reason For Exam: Soft tissue infection suspected, hand, xray done. Diagnosis: See Reason for Exam. Technique: CT of the right hand was performed following the administration of intravenous contrast. Contrast: IOPAMIDOL 61 % INTRAVENOUS SOLUTION (SINGLE USE VIAL) Given:100 mL. Comparison: April 03, 2025 Impression: There is no evidence of acute fracture or dislocation. No findings to suggest acute osteomyelitis. No fluid collection or hematoma. There is mild nonspecific stranding along the dorsal aspect of the hand which could be secondary to cellulitis or edema. The vascular structures are patent. The visualized flexor and extensor tendons are grossly intact. No visualized joint effusion. Mild degenerative changes about the wrist and hand. us Dario Hernandez MD CT ORDERABLES Final Result * XR HAND 3+ VW RIGHT (04/03/2025 7:33 AM WIRER) Anatomical Region Laterality Modality Wrist / Hand Computed Radiogr aphy 04/03/2025 7:34 AM WIRER Impressions 04/03/2025 10:12 AM WIRER IMPRESSION: Please see below. Exam: XR HAND 3+ VW RIGHT Date/Time of Exam: 04/03/2025 7:33 AM Reason For Exam: Swelling. Diagnosis: See Reason for Exam. Comparison: None Findings: The bones are intact, well mineralized and normally aligned. The joint spaces are well-maintained. No soft tissue swelling. IMPRESSION: 1. Nothing acute. Narrative Procedure Note Aleksandr Mckeon MD - 04/03/2025 IMPRESSION: Please see below. Exam: XR HAND 3+ VW RIGHT Date/Time of Exam: 04/03/2025 7:33 AM Reason For Exam: Swelling. Diagnosis: See Reason for Exam. Comparison: None Findings: The bones are intact, well mineralized and normally aligned. The joint spaces are well-maintained. No soft tissue swelling. IMPRESSION: 1. Nothing acute. us Dario Hernandez MD DIAGNOSTIC IMAGING OR DERABLES Final Result * (ABNORMAL) COMPREHENSIVE METABOLIC PANEL (04/03/2025 7:10 AM WIRER) SODIUM 136 136 - 145 mmol/L 04/03/2025 7:31 AM [facility] POTASSIUM 4.1 3.5 - 5.1 mmol/L 04/03/2025 7:31 AM [facility] CHLORIDE 102 98 - 107 mmol/L 04/03/2025 7:31 AM [facility] CO2 22 22 - 29 mmol/L 04/03/2025 7:31 AM [facility] CALCIUM 8.9 8.6 - 10.0 mg/dL 04/03/2025 7:31 AM [facility] BUN 10 6 - 20 mg/dL 04/03/2025 7:31 AM [facility] CREATININE 0.96 0.67 - 1.17 mg/dL 04/03/2025 7:31 AM [facility] GLUCOSE 237(H) 74 - 99 mg/dL 04/03/2025 7:31 AM [facility] TOTAL PROTEIN 6.4(L) 6.6 - 8.7 g/dL 04/03/2025 7:31 AM [facility] ALBUMIN 4.3 3.5 - 5.2 g/dL 04/03/2025 7:31 AM [facility] BILIRUBIN TOTAL 0.2 0.0 - 1.2 mg/dL 04/03/2025 7:31 AM [facility] ALKALINE PHOSPHATASE 46 40 - 129 U/L 04/03/2025 7:31 AM [facility] AST 30 0 - 50 U/L 04/03/2025 7:31 AM [facility] ALT 36 0 - 50 U/L 04/03/2025 7:31 AM [facility] GFR >60 >=60 mL/min/1.7 3 sq meter 04/03/2025 7:31 AM [facility] Comment:eGFR calculated with 2020 CKD-EPI equation. Vegetarian diet, extremely high or low muscle mass, and may affect results. Cystatin C with Glomerular Filtration Rate is a suitable alternative for these patients. ANION GAP 12 5 - 20 mmol/L 04/03/2025 7:31 AM [facility] Blood Venipuncture / Unknown 04/03/2025 7:10 AM WIRER 04/03/2025 7:13 AM WIRER Dario Hernandez MD CHEMISTRY ORDERABLES Final Result [facility] CLIA # [id number] [address] [place] [id number] * (ABNORMAL) CBC WITH DIFFERENTIAL (04/03/2025 7:10 AM [facility]) WBC 10.2(H) 4.2 - 9.1 K/uL 04/03/2025 7:23 AM [facility] [facility] RBC 4.37(L) 4.63 - 6.08 M/uL 04/03/2025 7:23 AM [facility] HEMOGLOBIN 12.5(L) 13.7 - 17.5 g/dL 04/03/2025 7:23 AM [facility] HEMATOCRIT 37.1(L) 40.1 - 51.0 % 04/03/2025 7:23 AM [facility] MCV 84.9 79.0 - 92.2 fL 04/03/2025 7:23 AM [facility] MCH 28.6 25.7 - 32.2 pg 04/03/2025 7:23 AM [facility] MCHC 33.7 32.3 - 36.5 g/dL 04/03/2025 7:23 AM [facility] RDW 13.2 11.0 - 14.5 % 04/03/2025 7:23 AM [facility] RDW-STDEV 41.2 36.9 - 56.9 fL 04/03/2025 7:23 AM [facility] PLATELETS 178 130 - 400 K/uL 04/03/2025 7:23 AM [facility] MPV 10.7 10.0 - 14.8 fL 04/03/2025 7:23 AM [facility] NEUTROPHILS 66 34 - 68 % 04/03/2025 7:23 AM [facility] LYMPHOCYTES 20(L) 22 - 53 % 04/03/2025 7:23 AM [facility] MONOCYTES 11 5 - 12 % 04/03/2025 7:23 AM [facility] EOSINOPHILS 3 1 - 7 % 04/03/2025 7:23 AM [facility] BASOPHILS 0 0 - 1 % 04/03/2025 7:23 AM [facility] IMMATURE GRANULOCYTES 0 % 04/03/2025 7:23 AM [facility] NEUTROPHIL ABSOLUTE 6.79(H) 1.78 - 5.38 K/uL 04/03/2025 7:23 AM [facility] LYMPHOCYTE ABSOLUTE 1.99 1.20 - 3.40 K/uL 04/03/2025 7:23 AM [facility] MONOCYTE ABSOLUTE 1.10(H) 0.30 - 0.82 K/uL 04/03/2025 7:23 AM [facility] EOSINOPHIL ABSOLUTE 0.29 0.04 - 0.54 K/uL 04/03/2025 7:23 AM [facility] BASOPHILS ABSOLUTE 0.03 0.01 - 0.08 K/uL 04/03/2025 7:23 AM [facility] IMMATURE GRANULOCYTES ABSOLUTE 0.02 K/uL 04/03/2025 7:23 AM [facility] Blood Venipuncture / Unknown 04/03/2025 7:10 AM WIRER 04/03/2025 7:13 AM WIRER Dario Hernandez MD HEMATOLOGY ORDERABLES Final Result [facility] # [id number] [address] [place] [address] documented in this encounter Visit Diagnoses Diagnosis Cellulitis of finger of right hand- Primary Cellulitis and abscess of finger, unspecified documented in this encounter Administered Medications Inactive Administered Medications - up to 3 most recent administrations Medication Order MAR Action Action Date Dose Rate Site iopamidoL (ISOVUE-300) 61% injection (single-use vial) 100 mL 100 mL, IV, INTRA-PROCEDURE ONCE, 1 dose, Starting on Sun04/03/25 at 0808, Until Sun04/03/25 at 0809, Routine Contrast Given 04/03/2025 8:09 AM WIRER 100 mL ketorolac (TORADOL) injection 15 mg 15 mg, IV, ONE TIME ONLY, 1 dose, On Sun04/03/25 at 0715, Routine Given 04/03/2025 7:19 AM WIRER 15 mg sodium chloride bacteriostatic 0.9 % injection 10 mL 10 mL, IV, SEE ADMIN INSTRUCTIONS, Starting on Sun04/03/25 at 0808, Until Sun04/03/25 at 1120, Routine Given 04/03/2025 8:09 AM WIRER 10 mL documented in this encounter Active and Recently Administered Medications Times are shown in WIRER. Scheduled Medication Order 04/01/2025 04/02/2025 04/03/2025 iopamidoL (ISOVUE-300) 61% injection (single-use vial) 100 mL (COMPLETED) 100 mL, IV, INTRA-PROCEDURE ONCE, 1 dose, Starting on Sun04/03/25 at 0808, Until Sun04/03/25 at 0809, Routine 0809 (Contrast Given - Provider: RT Melissa) ketorolac (TORADOL) injection 15 mg (COMPLETED) 15 mg, IV, ONE TIME ONLY, 1 dose, On Sun04/03/25 at 0715, Routine 0719 (Given - Provid er: Yasmeen Cherry RN) sodium chloride bacteriostatic 0.9 % injection 10 mL 10 mL, IV, SEE ADMIN INSTRUCTIONS, Starting on Sun04/03/25 at 0808, Until Sun04/03/25 at 1120, Routine 0809 (Given - Provid er: RT Melissa) documented in this encounter Care Teams Grout Worker Relationship Specialty Start Date End Date Jamie Arroyo MD [address] [phone] PCP - General 08/06/20 documented as of this encounter
--- OUTSIDE RECORDS SUMMARY | 2025-04-05 14:57 | XMS_ITS | Clinical Summary ---
Author Organization [facility] Address [address] [place] [address] Phone Care Team Providers Care Product Architect Name Role Phone Jamie Arroyo MD Primary Care Provider [phone] Allergies Active Allergy Reactions Criticality Noted Date Comments Atorvastatin Muscle Pain 11/29/2017 Medications SUMAtriptan (IMITREX) 5 mg/actuation Mcfaddin, Non-Aerosol every 2 hours as needed for [...] Tablet 05/18/20 Active naloxone (NARCAN) 4 mg/spray Mcfaddin, Non-Aerosol EMERGENCY USE ONLY: Administer 1 spray [...] hyperglycemia, without long-term current use of insulin ([facility]) Take 1 Tablet (800 mg) by mouth [...] hyperglycemia, without long-term current use of insulin ([facility]) Inject 10-30 Units by subcutaneous injection 3 times daily with meals. Adjust based on sliding scale, max daily dose 90 units, regimen change 27 mL 09/10/19 Active lisinopriL (PRINIVIL) 10 mg tabletIndications: Type 2 diabetes mellitus with hyperglycemia, without long-term current use of insulin ([facility]),Benign hypertension Take 1 Tablet (10 mg) by [...] hyperglycemia, without long-term current use of insulin ([facility]) LIPID PANEL Routine 11/18/2020 11:36 AM CDT Type 2 diabetes mellitus with hyperglycemia, without long-term current use of insulin ([facility]) HEMOGLOBIN A1C Routine 11/18/2020 11:36 AM CDT Type 2 diabetes mellitus with hyperglycemia, without long-term current use of insulin ([facility]) from Last 3 Months or Most Recently Relevant to Health Maintenance Results * MICROALBUMIN/CREATININE RATIO, RANDOM UR (11/18/2020 11:36 AM CDT) Creatinine, Urine 119 20 - 320 mg/dL [facility] MICROALBUMIN, URINE 0.3 See Note: mg/dL [facility] Comment: Reference Range: Reference Range Not established MICROALBUMIN/CREAT RATIO, UR 3 <30 mcg/mg creat [facility] Comment: The ADA defines abnormalities in albumin excretion as follows: Category Result (mcg/mg creatinine) Normal <30 Microalbuminuria 30-299 Clinical albuminuria > OR = 300 The ADA recommends that at least two of three specimens collected within a 3-6 month period be abnormal before considering a patient to be within a diagnostic category. Test Performed at: [facility] [address] [place] [address] Lan Vicente D.O., MPH Urine URINE SPECIMEN OBTAINED BY CLEAN CATCH PROCEDURE / Unknown 11/18/2020 11:36 AM CDT 11/19/2020 2:39 AM CDT Jamie Arroyo MD URINE ORDERABLES Final Re sult Performing Organization Address [facility]/ZIP Co de Phone Number [facility] [address] [place] [address] * (ABNORMAL) HEMOGLOBIN A1C (11/18/2020 11:36 AM CDT) HEMOGLOBIN A1C 8.0(H) <5.7 % of total Hgb [facility] [place] Comment: For someone without known diabetes, a [...] of diabetes for children. Test Performed at: [facility] [address] [place] [address] Lan Vicente D.O., MPH Blood 11/18/2020 11:3 6 AM CDT 11/19/2020 2:39 AM CDT Jamie Arroyo MD CHEMISTRY ORDERABLES Elza l Result Performing Organization Address [facility]/ZIP Co de Phone Number [facility] [address] [place] [address] * (ABNORMAL) LIPID PANEL (11/18/2020 11:36 AM CDT) CHOLESTEROL 171 <200 mg/dL [facility] HDL 28(L) > OR = 40 mg/dL [facility] TRIGLYCERIDE 406(H) <150 mg/dL [facility] Comment: If a non-fasting specimen was collected, consider repeat triglyceride testing on a fasting specimen if clinically indicated. Miguelina et al. J. of Clin. Lipidol. 2015;9:129-169. LDL CALCULATED mg/dL (calc) [facility] Comment: LDL cholesterol not calculated. Triglyceride levels [...] Mickey SS et al. JOSÉ LUIS. 2013;310(19): 9658-6736 (http://education.[employer] Safety/faq/WMH332) CHOL/HDL RATIO 6.1(H) <5.0 (calc) [facility] TOTAL NON-HDL CHOL(LDL+VLDL) 143(H) <130 mg/dL (calc) [facility] Comment: For patients with diabetes plus 1 major ASCVD risk factor, treating to a non-HDL-C goal of <100 mg/dL (LDL-C of <70 mg/dL) is considered a therapeutic option. Test Performed at: [facility] [address] [place] [address] Lan Vicente D.O., MPH Blood 11/18/2020 11:3 6 AM CDT 11/19/2020 2:39 AM CDT Jamie Arroyo MD CHEMISTRY ORDERABLES Elza khan Result [facility] [address] [place] [address] from Last 3 Months or Most Recently Relevant to Health Maintenance Insurance [place] Advance Directives For more information, please contact: [phone] * Full Code (Latest Code Status on File) Date Activated Date Inactivated Comments 01/20/2019 8:24 AM 01/20/2019 4:33 PM Care Teams Product Architect Relationship Specialty Start Date End Date Jamie Arroyo MD [address] [address] PCP - General Family Practice 10/23/19
--- OUTSIDE RECORDS SUMMARY | 2025-04-05 14:57 | XMS_ITS | Encounter Summary ---
Author Organization [facility] Address [address] [place] [address] Care Team Providers Care Croze Machine Operator Name Role Phone Jamie Arroyo MD Primary Care Provider [phone] Encounter Details Date Type Department Care Team (Late st Contact Info) Description 10/29/2017 Lab Requisition [facility] Services [place] [address] [place] [address] Miguelina Tolliver MD [address] [place] [address] Social History Tobacco Use Types [...] WBC 10.1 K/uL 10/30/2017 12:24 AM CDT [facility] RBC 5.33 M/uL 10/30/2017 12:24 AM [facility] HEMOGLOBIN 16.2 g/dL 10/30/2017 12:24 AM [facility] HEMATOCRIT 48.1 % 10/30/2017 12:24 AM [facility] MCV 90.2 fL 10/30/2017 12:24 AM [facility] MCH 30.4 pg 10/30/2017 12:24 AM [facility] MCHC 33.7 g/dL 10/30/2017 12:24 AM [facility] RDW 13.7 11.0 - 14.5 % 10/30/2017 12:24 AM [facility] RDW-STDEV 45.0 36.9 - 56.9 fL 10/30/2017 12:24 AM [facility] PLATELETS 184 150 - 450 K/uL 10/30/2017 12:24 AM [facility] MPV 12.1 10.0 - 14.8 fL 10/30/2017 12:24 AM [facility] NEUTROPHILS 53 % 10/30/2017 12:24 AM [facility] LYMPHOCYTES 36 % 10/30/2017 12:24 AM [facility] MONOCYTES 8 % 10/30/2017 12:24 AM [facility] EOSINOPHILS 3 % 10/30/2017 12:24 AM [facility] BASOPHILS 0 0 - 1 % 10/30/2017 12:24 AM [facility] IMMATURE GRANULOCYTES 0 % 10/30/2017 12:24 AM [facility] NEUTROPHIL ABSOLUTE 5.34 K/uL 10/30/2017 12:24 AM [facility] LYMPHOCYTE ABSOLUTE 3.60(H) 1.20 - 3.40 K/uL 10/30/2017 12:24 AM [facility] MONOCYTE ABSOLUTE 0.85 K/uL 018 12:24 AM [facility] EOSINOPHIL ABSOLUTE 0.29 K/uL 10/30/2017 12:24 AM [facility] BASOPHILS ABSOLUTE 0.03 0.01 - 0.08 K/uL 10/30/2017 12:24 AM [facility] IMMATURE GRANULOCYTES ABSOLUTE 0.03 K/uL 10/30/2017 12:24 AM [facility] Blood Collection / Unknown 10/29/2017 8:00 PM CDT 10/29/2017 11:25 PM CDT us Miguelina Tolliver MD HEMATOLOGY ORDERABLES Final Resu lt [facility] CLIA # [id number] [address] [place] [address] * (ABNORMAL) COMPREHENSIVE METABOLIC PANEL (10/29/2017 8:00 PM CDT) SODIUM 135(L) 136 - 145 mmol/L 10/30/2017 12:24 AM [facility] POTASSIUM 3.8 3.5 - 5.1 mmol/L 10/30/2017 12:24 AM [facility] CHLORIDE 91(L) 98 - 107 mmol/L 10/30/2017 12:24 AM [facility] CO2 22 22 - 29 mmol/L 10/30/2017 12:24 AM [facility] CALCIUM 10.0 8.6 - 10.0 mg/dL 10/30/2017 12:24 AM [facility] BUN 11 6 - 20 mg/dL 10/30/2017 12:24 AM [facility] CREATININE 0.69 mg/dL 10/30/2017 12:24 AM [facility] GLUCOSE 196(H) 74 - 106 mg/dL 10/30/2017 12:24 AM [facility] TOTAL PROTEIN 8.0 6.6 - 8.7 g/dL 10/30/2017 12:24 AM [facility] ALBUMIN 5.2 3.5 - 5.2 g/dL 10/30/2017 12:24 AM [facility] BILIRUBIN TOTAL 0.4 0.0 - 1.2 mg/dL 10/30/2017 12:24 AM [facility] ALKALINE PHOSPHATASE 68 U/L 10/30/2017 12:24 AM CDT [facility] AST 29 U/L 10/30/2017 12:24 AM [facility] ALT 46 U/L 10/30/2017 12:24 AM [facility] GFR >=60 mL/min/1.7 3 sq meter 10/30/2017 12:24 AM [facility] Comment: eGFR has not been validated for [...] mL/min/1.7 3 sq meter 10/30/2017 12:24 AM [facility] ANION GAP 22(H) 12 - 20 mmol/L 10/30/2017 12:24 AM [facility] Blood Collection / Unknown 10/29/2017 8:00 PM CDT 10/29/2017 11:25 PM CDT us Miguelina Tolliver MD CHEMISTRY ORDERABLES Final Resul t [facility] CLIA # [id number] [address] [address] documented in this encounter Visit Diagnoses Not on filedocumented in this encounter Additional Health Concerns Infection Onset Date Last Indicated Resolved Time R/O C. diff 01/09/2020 01/09/2020 01/09/2020 12:2 2 PM CDT R/O COVID-19 02/04/2020 02/05/2020 02/07/2020 3:02 AM CDT documented as of this encounter Care Teams Croze Machine Operator Relationship Specialty Start Date End Date Jamie Arroyo MD [address] [id number] PCP - General Family Practice 10/23/19 documented as of this encounter
--- OUTSIDE RECORDS SUMMARY | 2025-04-05 14:57 | XMS_ITS | Encounter Summary ---
Author Organization [facility] Address [address] [place] [address] Care Team Providers Care Tunnel Miner Name Role Phone Jamie Arroyo MD Primary Care Provider [phone] Encounter Details Date Type Department Care Team (Late st Contact Info) Description 11/20/2017 Lab Requisition [facility] Laboratory Services [place] [address] [place] [address] Miguelina Tolliver MD [address] [place] [address] Social History Tobacco Use Types [...] documented as of this encounter Care Teams Tunnel Miner Relationship Specialty Start Date End Date Jamie Arroyo MD [address] [address] PCP - General Family Practice 10/23/19 documented as of this encounter
--- OUTSIDE RECORDS SUMMARY | 2025-04-05 14:57 | XMS_ITS | Encounter Summary ---
Author Organization [facility] Address [address] [place] [address] Care Team Providers Care Experimental Welder Name Role Phone Jamie Arroyo MD Primary Care Provider [phone] Reason for Referral * CT Scan (Routine) - Closed Specialty Diagnoses / Procedures Referred By Contac t Referred To Contact Radiology Diagnoses Abnormal CT scan Right lower lobe pulmonary nodule Procedures CT CHEST WO CONTRAST Jamie Arroyo MD [address] [address] Phone: tel: fax: [facility] CT Scan [facility] [address] [address] Phone: tel: fax: Referral ID Status Reason Start Date Expiration Date V isits Requested Visits Authorized [id number] Closed [facility] View CTS to Schedule (SGF) 03/11/2019 04/10/2020 1 1 Encounter Details Date Type Department Care Team (Latest Contact Info) Description 03/11/2019 Ancillary Orders [facility] Centralized Scheduling [address] [address] Jamie Arroyo MD [address] [address] scan; Right lower [...] documented as of this encounter Care Teams Experimental Welder Relationship Specialty Start Date End Date Jamie Arroyo MD [address] [facility] [address] [place] [address] PCP - General Family Practice 10/23/19 documented as of this encounter
--- OUTSIDE RECORDS SUMMARY | 2025-04-05 14:57 | XMS_ITS | Encounter Summary ---
Author Organization [facility] Address [address] [place] [address] Care Team Providers Care Hotel Yardperson Name Role Phone Jamie Arroyo MD Primary Care Provider [phone] Encounter Details Date Type Department Care Team (Late st Contact Info) Description 11/13/2016 Lab Requisition [facility] General Laboratory Services [place] [address] [place] [address] Perry Smith, DO NO ADDRESS [...] (ABNORMAL) LIPID PANEL (11/13/2016 8:54 PM CDT) [facility] CHOLESTEROL 204(H) <200 mg/dL 11/14/2016 1:23 AM CDT [facility] TRIGLYCERIDE 441(H) <150 mg/dL 11/14/2016 1:23 AM CDT [facility] HDL 27(L) 40 - 59 mg/dL 11/14/2016 1:23 AM CDT [facility] LDL CALCULATED <100 mg/dL 11/14/2016 1:23 AM CDT [facility] Comment:Calculated LDL is no t accurate when the Triglyceride value exceeds 400. NON-HDL CHOLESTEROL 177(H) <130 mg/dL 11/14/2016 1:23 AM CDT [facility] Blood 11/13/2016 8:54 PM CDT 11/13/2016 10:09 PM CDT Narrative [facility] - 11/14/2016 1:23 AM CDT TOTAL CHOLESTEROL [...] Smith DO CHEMISTRY ORDERABLES Final Resu lt [facility] CLIA # [id number] [address] [place] [address] * (ABNORMAL) HEMOGLOBIN A1C (11/13/2016 8:54 PM CDT) HEMOGLOBIN A1C 7.7(H) 4.8 - 5.9 % 11/14/2016 1:23 AM CDT [facility] EST. AVG GLUCOSE, A1C 174 mg/dL 11/14/2016 1:23 AM CDT [facility] Blood 11/13/2016 8:54 PM CDT 11/13/2016 10:09 PM CDT us Perry Smith DO CHEMISTRY ORDERABLES Final Resu lt [facility] CLIA # [id number] [address] [place] [address] * (ABNORMAL) COMPREHENSIVE METABOLIC PANEL (11/13/2016 8:54 PM CDT) SODIUM 140 136 - 145 mmol/L 11/14/2016 1:23 AM [facility] POTASSIUM 3.9 3.5 - 5.1 mmol/L 11/14/2016 1:23 AM [facility] CHLORIDE 100 98 - 107 mmol/L 11/14/2016 1:23 AM [facility] CO2 23 22 - 29 mmol/L 11/14/2016 1:23 AM [facility] CALCIUM 10.0 8.6 - 10.0 mg/dL 11/14/2016 1:23 AM [facility] BUN 9 6 - 20 mg/dL 11/14/2016 1:23 AM [facility] CREATININE 0.87 mg/dL 11/14/2016 1:23 AM [facility] GLUCOSE 118(H) 74 - 106 mg/dL 11/14/2016 1:23 AM [facility] TOTAL PROTEIN 7.8 6.6 - 8.7 g/dL 11/14/2016 1:23 AM [facility] ALBUMIN 4.8 3.5 - 5.2 g/dL 11/14/2016 1:23 AM [facility] BILIRUBIN TOTAL 0.5 0.0 - 1.2 mg/dL 11/14/2016 1:23 AM [facility] ALKALINE PHOSPHATASE 48 U/L 11/14/2016 1:23 AM [facility] AST 65 U/L 11/14/2016 1:23 AM [facility] ALT 70 U/L 11/14/2016 1:23 AM [facility] GFR >=60 mL/min/1.7 3 sq meter 11/14/2016 1:23 AM [facility] Comment: eGFR has not been validated [...] 3 sq meter 11/14/2016 1:23 AM CDT [facility] ANION GAP 17 12 - 20 mmol/L 11/14/2016 1:23 AM CDT [facility] Blood 11/13/2016 8:54 PM CDT 11/13/2016 10:09 PM CDT us Perry Smith DO CHEMISTRY ORDERABLES Final Resu lt [facility] CLIA # [id number] [address] [address] documented in this encounter Visit Diagnoses Not on filedocumented in this encounter Additional Health Concerns Infection Onset Date Last Indicated Resolved Time R/O C. diff 01/09/2020 01/09/2020 01/09/2020 12:2 2 PM CDT R/O COVID-19 02/04/2020 02/05/2020 02/07/2020 3:02 AM CDT documented as of this encounter Care Teams Hotel Yardperson Relationship Specialty Start Date End Date Jamie Arroyo MD [address] [address] PCP - General Family Practice 10/23/19 documented as of this encounter
--- OUTSIDE RECORDS SUMMARY | 2025-04-05 14:57 | XMS_ITS | Encounter Summary ---
Author Organization [facility] Address [address] [place] [address] Care Team Providers Care Pipe Inspector Name Role Phone Jamie Arroyo MD Primary Care Provider [phone] Encounter Details Date Type Department Care Team (Late st Contact Info) Description 05/10/2020 Lab Requisition [facility] Laboratory Services [place] [address] [place] [address] Perry Smith, DO NO ADDRESS [...] CBC WITH DIFFERENTIAL Routine 05/10/2020 8:08 PM [facility] TSH Routine 05/10/2020 8:08 PM [facility] HEMOGLOBIN A1C Routine 05/10/2020 8:08 PM [facility] LIPID PANEL Routine 05/10/2020 8:08 PM [facility] COMPREHENSIVE METABOLIC PANEL Routine 05/10/2020 8:08 PM [facility] documented in this encounter Results * TSH (05/10/2020 8:08 PM [facility]) TSH 2.36 0.27 - 4.20 uIU/mL 05/10/2020 8:44 PM [facility] Blood Collection / Unknown 05/10/2020 8:08 PM [facility] 05/10/2020 8:08 PM [facility] Perry Smith DO CHEMISTRY ORDERABLES Final Resu lt [facility] CLIA # [id number] [address] [place] [id number] * (ABNORMAL) LIPID PANEL (05/10/2020 8:08 PM [facility]) CHOLESTEROL 261(H) <200 mg/dL 05/10/2020 8:44 PM [facility] TRIGLYCERIDE 695(H) <150 mg/dL 05/10/2020 8:44 PM [facility] HDL 32(L) 40 - 59 mg/dL 05/10/2020 8:44 PM [facility] LDL CALCULATED 05/10/2020 8:44 PM [facility] Comment:Calculated LDL is no t accurate when the Triglyceride value exceeds 400. NON-HDL CHOLESTEROL 229(H) <130 mg/dL 05/10/2020 8:44 PM [facility] Blood Collection / Unknown 05/10/2020 8:08 PM [facility] 05/10/2020 8:08 PM [facility] Narrative [facility] - 05/10/2020 8:44 PM [facility] TOTAL CHOLESTEROL mg/dL Desirable <200 Borderline high [...] ORDERABLES Final Resu lt Performing Organization Address City/[facility]/ZIP Co de Phone Number [facility] CLIA # [id number] [address] [place] [phone] * (ABNORMAL) HEMOGLOBIN A1C (05/10/2020 8:08 PM [facility]) HEMOGLOBIN A1C 9.6(H) <=5.6 % 05/10/2020 8:42 PM [facility] EST. AVG GLUCOSE, A1C 229 mg/dL 05/10/2020 8:42 PM [facility] Blood Collection / Unknown 05/10/2020 8:08 PM [facility] 05/10/2020 8:08 PM [facility] Narrative [facility] - 05/10/2020 8:42 PM [facility] HGB A1C INTERPRETATION NORMAL: <5.7% PRE-DIABETES: 5.7 - 6.4% DIABETES: 6.5% OR GREATER us Perry Smith DO CHEMISTRY ORDERABLES Final Resu lt [facility] CLIA # [id number] [address] [place] [address] * (ABNORMAL) COMPREHENSIVE METABOLIC PANEL (05/10/2020 8:08 PM [facility]) SODIUM 137 136 - 145 mmol/L 05/10/2020 8:44 PM [facility] POTASSIUM 4.0 3.5 - 5.1 mmol/L 05/10/2020 8:44 PM [facility] CHLORIDE 100 98 - 107 mmol/L 05/10/2020 8:44 PM [facility] CO2 25 22 - 29 mmol/L 05/10/2020 8:44 PM [facility] CALCIUM 9.6 8.6 - 10.0 mg/dL 05/10/2020 8:44 PM [facility] BUN 14 6 - 20 mg/dL 05/10/2020 8:44 PM [facility] CREATININE 0.99 0.67 - 1.17 mg/dL 05/10/2020 8:44 PM [facility] GLUCOSE 161(H) 74 - 99 mg/dL 05/10/2020 8:44 PM [facility] TOTAL PROTEIN 7.3 6.6 - 8.7 g/dL 05/10/2020 8:44 PM [facility] ALBUMIN 4.6 3.5 - 5.2 g/dL 05/10/2020 8:44 PM [facility] BILIRUBIN TOTAL 0.2 <=1.2 mg/dL 05/10/2020 8:44 PM [facility] ALKALINE PHOSPHATASE 65 40 - 129 U/L 05/10/2020 8:44 PM [facility] AST 37 10 - 50 U/L 05/10/2020 8:44 PM [facility] ALT 43 10 - 50 U/L 05/10/2020 8:44 PM [facility] GFR >60 >=60 mL/min/1.7 3 sq meter 05/10/2020 8:44 PM [facility] Comment: eGFR has not been [...] mL/min/1.7 3 sq meter 05/10/2020 8:44 PM [facility] ANION GAP 12 12 - 20 mmol/L 05/10/2020 8:44 PM [facility] Blood Collection / Unknown 05/10/2020 8:08 PM [facility] 05/10/2020 8:08 PM [facility] us Perry Smith DO CHEMISTRY ORDERABLES Final Resu lt [facility] CLIA # [id number] [address] [place] [address] * (ABNORMAL) CBC WITH DIFFERENTIAL (05/10/2020 8:08 PM [facility]) WBC 10.1(H) 4.2 - 9.1 K/uL 05/10/2020 8:42 PM [facility] RBC 5.13 4.63 - 6.08 M/uL 05/10/2020 8:42 PM [facility] HEMOGLOBIN 16.0 13.7 - 17.5 g/dL 05/10/2020 8:42 PM [facility] HEMATOCRIT 46.7 40.1 - 51.0 % 05/10/2020 8:42 PM [facility] MCV 91.0 79.0 - 92.2 fL 05/10/2020 8:42 PM [facility] MCH 31.2 25.7 - 32.2 pg 05/10/2020 8:42 PM [facility] MCHC 34.3 32.3 - 36.5 g/dL 05/10/2020 8:42 PM [facility] RDW 13.2 11.0 - 14.5 % 05/10/2020 8:42 PM [facility] RDW-STDEV 44.3 36.9 - 56.9 fL 05/10/2020 8:42 PM [facility] PLATELETS 255 130 - 400 K/uL 05/10/2020 8:42 PM [facility] MPV 12.4 10.0 - 14.8 fL 05/10/2020 8:42 PM [facility] NEUTROPHILS 52 34 - 68 % 05/10/2020 8:42 PM [facility] LYMPHOCYTES 35 22 - 53 % 05/10/2020 8:42 PM [facility] MONOCYTES 10 5 - 12 % 05/10/2020 8:42 PM [facility] EOSINOPHILS 2 1 - 7 % 05/10/2020 8:42 PM [facility] BASOPHILS 1 0 - 1 % 05/10/2020 8:42 PM [facility] IMMATURE GRANULOCYTES 1 % 05/10/2020 8:42 PM [facility] NEUTROPHIL ABSOLUTE 5.25 1.78 - 5.38 K/uL 05/10/2020 8:42 PM [facility] LYMPHOCYTE ABSOLUTE 3.52(H) 1.20 - 3.40 K/uL 05/10/2020 8:42 PM [facility] MONOCYTE ABSOLUTE 1.05(H) 0.30 - 0.82 K/uL 05/10/2020 8:42 PM [facility] EOSINOPHIL ABSOLUTE 0.18 0.04 - 0.54 K/uL 05/10/2020 8:42 PM [facility] BASOPHILS ABSOLUTE 0.05 0.01 - 0.08 K/uL 05/10/2020 8:42 PM [facility] IMMATURE GRANULOCYTES ABSOLUTE 0.05 K/uL 05/10/2020 8:42 PM [facility] Blood Collection / Unknown 05/10/2020 8:08 PM [facility] 05/10/2020 8:08 PM [facility] Perry Smith DO HEMATOLOGY ORDERABLES Final Res ult [facility] CLIA # [id number] [address] [address] documented in this encounter Visit Diagnoses Not on filedocumented in this encounter Care Teams Pipe Inspector Relationship Specialty Start Date End Date Jamie Arroyo MD [address] [address] PCP - General Family Practice 10/23/19 documented as of this encounter
--- OUTSIDE RECORDS SUMMARY | 2025-04-05 14:57 | XMS_ITS | Clinical Summary ---
Author Organization [facility] Address [address] [place] [address] Phone Care Team Providers Care Hairspring Fabrication Supervisor Name Role Phone Jamie Arroyo MD Primary Care Provider +1 [phone] Allergies Active Allergy Reactions Criticality Noted Date Comments Atorvastatin Muscle Pain 11/29/2017 Medications naloxone (NARCAN) 4 mg/spray [place], Non-Aerosol EMERGENCY USE ONLY: Administer 1 spray [...] 10/02/19 21 Active Blood-Glucose Meter,Continuous (Dexcom G6 Informatica Mdm Developer) Use to monitor blood glucose continuously throughout the day. 1 Each 5 08/28/19 23 Active Blood-Glucose Transmitter (Dexcom G6 Transmitter) Device FASTEN ON TOP OF THE SENSOR TO WIRELESSLY SEND DATA TO THE SPECIAL EDUCATION SUPERVISOR MUST BE CHANGED EVERY 3 MONTHS [...] 12/25/19 24 Active Blood-Glucose Meter,Continuous (Dexcom G7 Informatica Mdm Developer)Indicati ons:Type 2 diabetes mellitus with hyperglycemia, without [...] without long-term current use of insulin ([facility]) INJECT 2 MG SUBCUTANEOUSLY ONCE A WEEK [...] Department Care Team Description 04/03/2025 6:15 AM PERSONNEL COUNSELOR - 04/03/2025 9:07 AM [facility] Emergency [facility] Emergency Medicine [address] [place] [phone] Dario Hernandez MD Cellulitis of finger of right hand (Primary Dx) Discharge Disposition: Home or Self Care 04/03/2025 Travel 03/19/[address] [place] [address] Jamie Arroyo MD Appointment Correction 03/18/[address] [place] [address] Liza Herrera FNP Benign hypertension; SVT (supraventricular tachycardia) 03/18/[address] [place] [address] Liza Herrera FNP Type 2 diabetes mellitus with hyperglycemia, without long-term current use of insulin ([facility]) 03/05/2025 10:20 AM CDT Office Visit [address] [place] [address] Jamie Arroyo MD Primary hypogonadism in male (Primary Dx); Type 2 diabetes mellitus with diabetic polyneuropathy, without long-term current use of insulin ([facility]) 02/24/[address] [place] [address] Liza Herrera FNP Type 2 diabetes mellitus with hyperglycemia, without long-term current use of insulin ([facility]) 02/10/2025 External Device Data STL ABSTRACTION Provider, Abstract 01/21/[address] [place] [address] Jamie Arroyo MD 01/20/2025 External Device Data [place] ABSTRACTION Provider, Abstract 01/19/[address] [place] [address] Provider, Abstract 01/16/[address] [place] [address] Jamie Arroyo MD 01/16/[address] [place] [phone] Liza Herrera, KERWIN Gastroesophageal reflux disease without esophagitis; Type 2 diabetes mellitus with hyperglycemia, without long-term current use of insulin ([facility]); Mixed hyperlipidemia; Recurrent major depressive disorder, in full remission 01/13/2025 External Device Data STL ABSTRACTION Provider, Abstract 01/07/2025 Results Follow-Up [facility] [address] [place] [phone] Jamie Arroyo MD HEMOGLOBIN A1C, COMPREHENSIVE METABOLIC [...] worry about transportation for future doctor visits, slat pickler medication, etc.? No 2024 Housing Stability [...] on file Legal Sex Male 3:40 PM PERSONNEL COUNSELOR Gender Identity Male 02/23/2023 5:43 PM CDT Sexual Orientation Lesbian or Lopez 02/23/2023 5: 43 PM CDT Last Filed Vital Signs Vital Sign Reading Time Taken Comments Blood Pressure 147/98 04/03/2025 9:00 AM PERSONNEL COUNSELOR Pulse 87 04/03/2025 9:00 AM PERSONNEL COUNSELOR Temperature 36 C (96.8 F) 04/03/2025 6:22 AM PERSONNEL COUNSELOR Respiratory Rate 20 04/03/2025 9:00 AM PERSONNEL COUNSELOR Oxygen Saturation 95% 04/03/2025 9:00 AM PERSONNEL COUNSELOR Inhaled Oxygen Concentration - - Weight 100.9 kg (222 lb 6.4 oz) 04/03/2025 6:22 AM PERSONNEL COUNSELOR Height 185.4 cm (6' 1 ) 04/03/2025 6:22 AM PERSONNEL COUNSELOR Body Mass Index 29.34 04/03/2025 6:22 AM PERSONNEL COUNSELOR Plan of Treatment Upcoming Encounters Date Type Department Care Team (Late st Contact Info) Description 07/03/2025 4:20 PM PERSONNEL COUNSELOR Office Visit [facility] [address] [address] Jamie Arroyo MD [address] [place] [address] Health Maintenance Due Date Last Done [...] W CONTRAST RIGHT Stat 04/03/2025 8:09 AM PERSONNEL COUNSELOR XR HAND 3+ VW RIGHT Stat 04/03/2025 7 :33 AM PERSONNEL COUNSELOR COMPREHENSIVE METABOLIC PANEL Stat 04/03/2025 7:10 AM PERSONNEL COUNSELOR CBC WITH DIFFERENTIAL Stat 04/03/2025 7:10 AM PERSONNEL COUNSELOR HEMOGLOBIN A1C Routine 12/16/2024 4:07 PM CDT Type 2 diabetes mellitus with diabetic polyneuropathy, without long-term current use of insulin (CMS/HCC) MICROALBUMIN/CREATININ E RATIO, RANDOM UR Routine 06/09/2024 4:33 PM PERSONNEL COUNSELOR Type 2 diabetes mellitus without complication, with long-term current use of insulin (CMS/HCC) LIPID PANEL Routine 06/09/2024 4:33 PM PERSONNEL COUNSELOR Type 2 diabetes mellitus without complication, with [...] HAND W CONTRAST RIGHT (04/03/2025 8:09 AM PERSONNEL COUNSELOR) Anatomical Region Laterality Modality Wrist / Hand Computed Tomogra phy 04/03/2025 8:10 AM PERSONNEL COUNSELOR Impressions 04/03/2025 8:18 AM PERSONNEL COUNSELOR IMPRESSION: Please see below. Exam: CT HAND [...] HAND 3+ VW RIGHT (04/03/2025 7:33 AM PERSONNEL COUNSELOR) Anatomical Region Laterality Modality Wrist / Hand Computed Radiogr aphy 04/03/2025 7:34 AM PERSONNEL COUNSELOR Impressions 04/03/2025 10:12 AM PERSONNEL COUNSELOR IMPRESSION: Please see below. Exam: XR HAND [...] (ABNORMAL) CBC WITH DIFFERENTIAL (04/03/2025 7:10 AM PERSONNEL COUNSELOR) WBC 10.2(H) 4.2 - 9.1 K/uL 04/03/2025 7:[address] [facility] RBC 4.37(L) 4.63 - 6.08 M/uL 04/03/2025 7:[address] [facility] HEMOGLOBIN 12.5(L) 13.7 - 17.5 g/dL 04/03/2025 7:[address] [facility] HEMATOCRIT 37.1(L) 40.1 - 51.0 % 04/03/2025 7:[address] [facility] MCV 84.9 79.0 - 92.2 fL 04/03/2025 7:[address] [facility] MCH 28.6 25.7 - 32.2 pg 04/03/2025 7:[address] [facility] MCHC 33.7 32.3 - 36.5 g/dL 04/03/2025 7:[address] [facility] RDW 13.2 11.0 - 14.5 % 04/03/2025 7:[address] [facility] RDW-STDEV 41.2 36.9 - 56.9 fL 04/03/2025 7:[address] [facility] PLATELETS 178 130 - 400 K/uL 04/03/2025 7:[address] [facility] MPV 10.7 10.0 - 14.8 fL 04/03/2025 7:[address] [facility] NEUTROPHILS 66 34 - 68 % 04/03/2025 7:[address] [facility] LYMPHOCYTES 20(L) 22 - 53 % 04/03/2025 7:[address] [facility] MONOCYTES 11 5 - 12 % 04/03/2025 7:[address] [facility] EOSINOPHILS 3 1 - 7 % 04/03/2025 7:[address] [facility] BASOPHILS 0 0 - 1 % 04/03/2025 7:[address] [facility] IMMATURE GRANULOCYTES 0 % 04/03/2025 7:[address] [facility] NEUTROPHIL ABSOLUTE 6.79(H) 1.78 - 5.38 K/uL 04/03/2025 7:[address] [facility] LYMPHOCYTE ABSOLUTE 1.99 1.20 - 3.40 K/uL 04/03/2025 7:[address] [facility] MONOCYTE ABSOLUTE 1.10(H) 0.30 - 0.82 K/uL 04/03/2025 7:[address] [facility] EOSINOPHIL ABSOLUTE 0.29 0.04 - 0.54 K/uL 04/03/2025 7:[address] [facility] BASOPHILS ABSOLUTE 0.03 0.01 - 0.08 K/uL 04/03/2025 7:[address] [facility] IMMATURE GRANULOCYTES ABSOLUTE 0.02 K/uL 04/03/2025 7:[address] [facility] Blood Venipuncture / Unknown 04/03/2025 7:10 AM PERSONNEL COUNSELOR 04/03/2025 7:13 AM PERSONNEL COUNSELOR us Dario Hernandez MD HEMATOLOGY ORDERABLES Final Result [facility] CLIA # [id number] [address] [place] [phone] * (ABNORMAL) COMPREHENSIVE METABOLIC PANEL (04/03/2025 7:10 AM [facility]) SODIUM 136 136 - 145 mmol/L 04/03/2025 7:[address] [facility] POTASSIUM 4.1 3.5 - 5.1 mmol/L 04/03/2025 7:[address] [facility] CHLORIDE 102 98 - 107 mmol/L 04/03/2025 7:[address] [facility] CO2 22 22 - 29 mmol/L 04/03/2025 7:[address] [facility] CALCIUM 8.9 8.6 - 10.0 mg/dL 04/03/2025 7:[address] [facility] BUN 10 6 - 20 mg/dL 04/03/2025 7:[address] [facility] CREATININE 0.96 0.67 - 1.17 mg/dL 04/03/2025 7:[address] [facility] GLUCOSE 237(H) 74 - 99 mg/dL 04/03/2025 7:[address] [facility] TOTAL PROTEIN 6.4(L) 6.6 - 8.7 g/dL 04/03/2025 7:[address] [facility] ALBUMIN 4.3 3.5 - 5.2 g/dL 04/03/2025 7:[address] [facility] BILIRUBIN TOTAL 0.2 0.0 - 1.2 mg/dL 04/03/2025 7:[address] [facility] ALKALINE PHOSPHATASE 46 40 - 129 U/L 04/03/2025 7:[address] [facility] AST 30 0 - 50 U/L 04/03/2025 7:[address] [facility] ALT 36 0 - 50 U/L 04/03/2025 7:[address] [facility] GFR >60 >=60 mL/min/1.7 3 sq meter 04/03/2025 7:[address] [facility] Comment:eGFR calculated with 2020 CKD-EPI equation. Vegetarian diet, extremely high or low muscle mass, and may affect results. Cystatin C with Glomerular Filtration Rate is a suitable alternative for these patients. ANION GAP 12 5 - 20 mmol/L 04/03/2025 7:31 AM PERSONNEL COUNSELOR [facility] Blood Venipuncture / Unknown 04/03/2025 7:10 AM PERSONNEL COUNSELOR 04/03/2025 7:13 AM PERSONNEL COUNSELOR us Dario Hernandez MD CHEMISTRY ORDERABLES Final Result Performing Organization Address City/[facility]/ZIP Co de Phone Number [facility] CLIA # [id number] [address] [place] [phone] * (ABNORMAL) HEMOGLOBIN A1C (12/16/2024 4:07 PM [...] ESTIMATED AVERAGE GLUCOSE (MG/DL) 154 mg/dL [facility] ESTIMATED AVERAGE GLUCOSE (MMOL/L) 8.5 mmol/L [facility] Comment: Test Performed at: [facility] [address] [facility] [place] [address] Unruly Cortez MD Blood 12/16/2024 4:07 PM CDT 12/18/2024 3:26 AM CDT us Jamie Arroyo MD CHEMISTRY ORDERABLES Elza l Result [facility] [phone] [facility] [address] [place] [facility] [address] * MICROALBUMIN/CREATININE RATIO, RANDOM UR (06/09/2024 4:33 PM PERSONNEL COUNSELOR) Creatinine, Urine 160 20 - 320 mg/dL [facility] MICROALBUMIN, URINE 4.4 See Note: mg/dL [...] within a diagnostic category. Test Performed at: [facility] [address] [place] [address] Unruly Cortez MD Urine URINE SPECIMEN OBTAINED BY CLEAN CATCH PROCEDURE / Unknown 06/09/2024 4:33 PM PERSONNEL COUNSELOR 06/11/2024 4:25 AM PERSONNEL COUNSELOR Jamie Arroyo MD URINE ORDERABLES Final Re sult [facility] [phone] [facility] [address] [place] [address] * (ABNORMAL) LIPID PANEL (06/09/2024 4:33 PM PERSONNEL COUNSELOR) CHOLESTEROL 180 <200 mg/dL [facility] HDL 44 > OR = 40 mg/dL [facility] TRIGLYCERIDE 271(H) <150 mg/dL [facility] [...] Mickey SS et al. JOSÉ LUIS. 2013;310(19): 5496-8013 (http://education.XunLight/faq/MQJ442) CHOL/HDL RATIO 4.1 <5.0 (calc) [facility] NON-HDL CHOLESTEROL 136(H) <130 mg/dL (calc) [facility] Comment: For patients with diabetes plus 1 major ASCVD risk factor, treating to a non-HDL-C goal of <100 mg/dL (LDL-C of <70 mg/dL) is considered a therapeutic option. Test Performed at: [facility] [address] [facility] [place] [address] Unruly Cortez MD Blood 06/09/2024 4:33 PM PERSONNEL COUNSELOR 06/11/2024 4:51 AM PERSONNEL COUNSELOR Jamie Arroyo MD CHEMISTRY ORDERABLES [facility] Result [facility] [phone] [facility] [address] [place] [address] * COLON CANCER SCREEN, STOOL DNA (09/06/2023 1:50 AM CDT) COLOGUARD RESULT Negative Negative [facility] Comment: NEGATIVE TEST RESULT. A negative [...] (Marty López al, N Engl J Med 2014;370(14):7058-7268) The normal value (reference range) for this assay is negative. COLOGUARD RE-SCREENING RECOMMENDATION: Periodic colorectal cancer screening is an important part of preventive healthcare for asymptomatic individuals at average risk for colorectal cancer. Following a negative Cologuard result, the [place] [employer] Cancer Society and U.S. Multi-Society Task Force screening guidelines recommend a Cologuard re-screening interval of 3 years. References: [place] [employer] Guideline for Colorectal Cancer Screening: https://www.cancer.org/cancer/eptlu-azzhqm-vtqhgk/hyijhlzzm-ytfpjostq-shevjmy/ac s-rec ommendations.html.; Dash DK, Brittanie WILBURN, Melissa LeeK, Colorectal Cancer Screening: Recommendations for Physicians and Patients from the U.S. Multi-Society Task Force on Colorectal Cancer Screening , Am J Gastroenterology 2017; 112:5156-8975. TEST DESCRIPTION: Composite algorithmic analysis of stool [...] Ford et al, N Engl J Med 2014;370(14):4333-2616.) Cologuard may produce a false negative or false positive result (no colorectal cancer or precancerous polyp present at colonoscopy follow up). A negative Cologuard test result does not guarantee the absence of CRC or advanced adenoma (pre-cancer). The current Cologuard screening interval is every 3 years. ([place] [employer] Cancer Society and U.S. Multi-Society Task Force). Cologuard performance data in a 10,000 patient pivotal study using colonoscopy as the reference method can be accessed at the following location: www.[employer]/results. Additional description of the Cologuard test process, warnings and precautions can be found at www.Konbinird.com. Stool STOOL SPECIMEN / Unknown 09/06/2023 1:50 AM CDT 09/07/2023 1:08 PM CDT Liza Herrera VOICE AND DATA TECHNICIAN [employer]UIDS [employer] STOOLS F inal Result [facility] CLIA # [id number] [address] , [address] [place] [address] * DIABETES EYE EXAM (05/10/2022) us Abstract [...] Maintenance Insurance [place] [address] Care Teams Hairspring Fabrication Supervisor Relationship Specialty Start Date End Date Jamie Arroyo MD [address] [address] PCP - General 08/06/20
--- OUTSIDE RECORDS SUMMARY | 2025-04-05 14:57 | XMS_ITS | Encounter Summary ---
Author Organization [facility] Address [address] [facility] Attn: [place] [address] Care Team Providers Care Sales And Service Change Leader Name Role Phone Jamie Arroyo MD Primary Care Provider [phone] Encounter Details Date Type Department Care Team [...] worry about transportation for future doctor visits, cigar packer and picker medication, etc.? No 2024 Housing Stability [...] on file Legal Sex Male 3:40 PM PERCUSSION TEACHER Gender Identity Male 02/23/2023 5:43 PM CDT Sexual Orientation Lesbian or Lopez 02/23/2023 5: 43 PM CDT documented as of this encounter Plan of Treatment Upcoming Encounters Date Type Department Care Team (Late st Contact Info) Description 07/03/2025 4:20 PM PERCUSSION TEACHER Office Visit [facility] [address] [address] Jamie Arroyo MD [address] [address] documented as of this encounter Visit Diagnoses Not on filedocumented in this encounter Care Teams Sales And Service Change Leader Relationship Specialty Start Date End Date Jamie Arroyo MD [address] [address] PCP - General 08/06/20 documented as of this encounter
--- OUTSIDE RECORDS SUMMARY | 2025-04-05 14:57 | XMS_ITS | Encounter Summary ---
Author Organization [facility] Address [address] [place] [address] Care Team Providers Care Medical Device Name Role Phone Jamie Arroyo MD Primary Care Provider [phone] Encounter Details Date Type Department Care Team (Late st Contact Info) Description 11/08/2017 Lab Requisition [facility] [place] [address] [address] Miguelina Tolliver MD [address] [place] [address] Social History Tobacco Use Types [...] as of this encounter Care Teams Medical Device Relationship Specialty Start Date End Date Jamie Arroyo MD [address] [place] [address] PCP - General Family Practice 10/23/19 documented as of this encounter
--- OUTSIDE RECORDS SUMMARY | 2025-04-05 14:57 | XMS_ITS | Encounter Summary ---
Author Organization [facility] Address [address] [place] [address] Care Team Providers Care Kitchen And Bath Designer Name Role Phone Jamie Arroyo MD Primary Care Provider [phone] Encounter Details Date Type Department Care Team (Late st Contact Info) Description 07/21/2019 Lab Requisition [facility] Services [place] [address] [place] [address] Rickie Garrett PA [address] [place] [phone] Social History Tobacco Use Types Packs/Day Years [...] COMPREHENSIVE METABOLIC PANEL Routine 07/21/2019 9:25 PM BRANCH SALES MANAGER documented in this encounter Results * (ABNORMAL) COMPREHENSIVE METABOLIC PANEL (07/21/2019 9:25 PM BRANCH SALES MANAGER) SODIUM 137 136 - 145 mmol/L 07/22/2019 3:14 AM BRANCH SALES MANAGER [facility] POTASSIUM 4.0 3.5 - 5.1 mmol/L 07/22/2019 3:14 AM [facility] CHLORIDE 100 98 - 107 mmol/L 07/22/2019 3:14 AM [facility] CO2 23 22 - 29 mmol/L 07/22/2019 3:14 AM [facility] CALCIUM 9.3 8.6 - 10.0 mg/dL 07/22/2019 3:14 AM [facility] BUN 9 6 - 20 mg/dL 07/22/2019 3:14 AM [facility] CREATININE 0.71 0.67 - 1.17 mg/dL 07/22/2019 3:14 AM [facility] GLUCOSE 245(H) 74 - 99 mg/dL 07/22/2019 3:14 AM [facility] TOTAL PROTEIN 6.8 6.6 - 8.7 g/dL 07/22/2019 3:14 AM [facility] ALBUMIN 4.5 3.5 - 5.2 g/dL 07/22/2019 3:14 AM [facility] BILIRUBIN TOTAL 0.2 <=1.2 mg/dL 07/22/2019 3:14 AM [facility] ALKALINE PHOSPHATASE 56 40 - 129 U/L 07/22/2019 3:14 AM [facility] AST 31 10 - 50 U/L 07/22/2019 3:14 AM [facility] ALT 43 10 - 50 U/L 07/22/2019 3:14 AM [facility] GFR >60 >=60 mL/min/1.7 3 sq meter 07/22/2019 3:14 AM [facility] Comment: eGFR has not been validated for [...] mL/min/1.7 3 sq meter 07/22/2019 3:14 AM BRANCH SALES MANAGER [facility] ANION GAP 14 12 - 20 mmol/L 07/22/2019 3:14 AM BRANCH SALES MANAGER [facility] Blood Collection / Unknown 07/21/2019 9:25 PM BRANCH SALES MANAGER 07/22/2019 2:12 AM BRANCH SALES MANAGER Rickie CORTEZ CHEMISTRY ORDERABLES Final R esult [facility] CLIA # [id number] [address] [address] documented in this encounter Visit Diagnoses Not on filedocumented in this encounter Additional Health Concerns Infection Onset Date Last Indicated Resolved Time R/O C. diff 01/09/2020 01/09/2020 01/09/2020 12:2 2 PM CDT R/O COVID-19 02/04/2020 02/05/2020 02/07/2020 3:02 AM CDT documented as of this encounter Care Teams Kitchen And Bath Designer Relationship Specialty Start Date End Date Jamie Arroyo MD [address] [phone] PCP - General Family Practice 10/23/19 documented as of this encounter
--- OUTSIDE RECORDS SUMMARY | 2025-04-05 14:57 | XMS_ITS | Encounter Summary ---
Author Organization [facility] Address [address] [place] [address] Care Team Providers Care Biology Department Chair Name Role Phone Jamie Arroyo MD Primary Care Provider [phone] Encounter Details Date Type Department Care Team (Late st Contact Info) Description 03/11/2019 Ancillary Orders [facility] Centralized Scheduling [address] [address] Jamie Arroyo MD [address] [facility] [address] [place] [phone] Social History Tobacco Use Types Packs/Day Years [...] documented as of this encounter Care Teams Biology Department Chair Relationship Specialty Start Date End Date Jamie Arroyo MD [address] [phone] PCP - General Family Practice 10/23/19 documented as of this encounter
--- OUTSIDE RECORDS SUMMARY | 2025-04-05 14:57 | XMS_ITS | Encounter Summary ---
Author Organization [facility] Address [address] [place] [address] Care Team Providers Care Molding Line Operator Name Role Phone Jamie Arroyo MD Primary Care Provider [phone] Reason for Referral * Radiology Services (Routine) - Closed Specialty Diagnoses / Procedures Referred By Contac t Referred To Contact Cardiology Diagnoses Unstable angina (CMS/HCC) ASHD (arteriosclerotic heart disease) Procedures CL LT HEART CATHETERIZATION Dallas Waller MD Phone: tel: fax: [facility] Cardiac Application Assistant [facility] [place] [address] Phone: tel: fax: Referral ID Status Reason Start Date Expiration Date Visits Re quested Visits Authorized [id number] Closed 01/14/2019 02/14/2020 1 1 Encounter Details Date Type Department Care Team (Late st Contact Info) Description 01/14/2019 Ancillary Orders [facility] Cardiac Application Assistant [address] [place] [address] Dallas Waller MD [address] [place] [id number] Unstable angina (CMS/HCC); ASHD (arteriosclerotic heart disease) [...] therapy is recommended. PCG/jaw - transcribed in [facility] - 01/20/2019 1:16 PM CDT LEFT HEART CATHETERIZATION, CORONARY ANGIOGRAM REPORT: NAME OF THE BLACKTOP PAVER OPERATOR: Dallas Waller MD, oyster culler. NAME OF PROCEDURE PERFORMED: 1. Left heart catheterization. 2. Selective right and left tun[place] coronary angiography. INDICATION OF THE PROCEDURE: Mr. [...] well. The patient was brought to the label maker in a fasting, nonsedated state. After giving the patient a total of 50 mcg of fentanyl and 2 mg of Versed, we achieved moderate conscious sedation which lasted from 10:03 AM to 10:12 AM. Respiratory, hemodynamic, and neurological parameters were monitored through the procedure by the operators and by the label maker staff. The patient was prepped and draped in sterile fashion. We exposed the right radial artery which was then prepped with 1% chlorhexidine and instilled a total of 3 mL of 1% lidocaine for good local anesthesia. We then gained access into the right radial artery using a micropuncture needle and modified Seldinger technique to insert a 6-Guyanese Slender sheath with good blood flow return. This was followed by introduction of a Beltran 5-Guyanese diagnostic catheter for selective right and left tun[place]ak coronary angiography as well as LV pressure [...] complications and was transferred out of the label maker in stable condition without any chest pain. FINAL us Dallas Waller MD FLUOROSCOPY ORDER MINDY Final Result [facility] documented in this encounter Visit Diagnoses Diagnosis Unstable angina (CMS/HCC) Intermediate coronary syndrome ASHD (arteriosclerotic heart disease) Coronary atherosclerosis of unspecified type of vessel, tun[place] or graft Other forms of angina pectoris- Primary Unstable angina (CMS/HCC) Intermediate coronary syndrome ASHD (arteriosclerotic heart disease) Coronary atherosclerosis of unspecified type of vessel, tun[place] or graft documented in this encounter Additional Health Concerns Infection Onset Date Last Indicated Resolved Time R/O C. diff 01/09/2020 01/09/2020 01/09/2020 12:2 2 PM CDT R/O COVID-19 02/04/2020 02/05/2020 02/07/2020 3:02 AM CDT documented as of this encounter Care Teams Molding Line Operator Relationship Specialty Start Date End Date Jamie Arroyo MD [address] [facility] [address] [place] [address] PCP - General Family Practice 10/23/19 documented as of this encounter
[2025-04-05 15:00] VITALS: BP 146/94; PULSE 97; RESP 18; TEMP 36.7; O2SAT 99
--- NOTE | 2025-04-05 15:08 | XRR_ITS ---
PROCEDURE INFORMATION: Exam: XR Right Finger(s) Exam date and time: 04/05/2025 3:22 PM Age: 49 years old Clinical indication: Pain; Finger(s); Right; Additional info: Increased pain/redness/swelling to RT 5th digit TECHNIQUE: Imaging protocol: Radiologic exam of the right fingers. Views: Minimum 2 views. COMPARISON: CR (UP EXM, ) 04/04/2025 11:34 AM FINDINGS: Bones/joints: Soft tissue swelling about the 5th proximal interphalangeal joint of uncertain etiology, MRI and/or ultrasound could further evaluate the soft tissues. Negative for bony abnormality seen to suggest bony infection. If concern for joint infection exists consider fluid sampling. Soft tissues: See Bones/joints finding. XR/XR finger RT min 2V [id number] IMPRESSION: Soft tissue swelling about the 5th proximal interphalangeal joint of uncertain etiology, MRI and/or ultrasound could further evaluate the soft tissues. Negative for bony abnormality seen to suggest bony infection. If concern for joint infection exists consider fluid sampling.
--- NOTE | 2025-04-05 15:12 | W.ED.SKABFB ---
HPI - Skin/Abscess/Foreign Bdy General: Chief complaint: Skin/Abscess/Foreign Body Stated complaint: Rt pinkie inj Time Seen by Provider: 04/05/25 15:07 History of Present Illness: 49-year-old male presents emergency room he has a proximal right fifth finger cellulitis he currently is on Keflex and doxycycline he was seen yesterday got vancomycin. They did incise and drain it. He is concerned it may be worsening he still has persistent pain Associated symptoms: Deny chills or fever(s) Related Data Home Medications ?Medication ?Instructions ?Recorded ?Confirmed cetirizine 10 mg tablet (Zyrtec) 10 mg PO DAILY 06/29/19 04/02/25 duloxetine 60 mg capsule,delayed 120 mg PO BEDTIME 06/29/19 04/02/25 release (Cymbalta) lisinopril 10 mg tablet 10 mg PO DAILY 06/29/19 04/02/25 Held on 02/18/24. Instructions: Until seen by PCP metformin 1,000 mg tablet 1,000 mg PO BID 06/29/19 04/02/25 metoprolol tartrate 50 mg tablet 50 mg PO BID 06/29/19 04/02/25 omeprazole 40 mg capsule,delayed 40 mg PO DAILY 06/29/19 04/02/25 release rosuvastatin 40 mg tablet (Crestor) 40 mg PO QPM 08/06/20 04/02/25 cyclobenzaprine 10 mg tablet 5 - 10 mg PO TID PRN Muscle Spasm 11/14/23 04/02/25 gabapentin 400 mg capsule 400 mg PO TID 11/14/23 04/02/25 gabapentin 800 mg tablet 800 mg PO TID 11/14/23 04/02/25 hydrochlorothiazide 12.5 mg tablet 12.5 mg PO DAILY 11/14/23 04/02/25 Held on 02/18/24. Instructions: Until seen by PCP insulin aspart U-100 100 unit/mL See Rx Instructions .Route .COMPLEX 11/14/23 04/02/25 (3 mL) subcutaneous pen insulin glargine 100 unit/mL (3 40 unit SUBCUT BID 11/14/23 04/02/25 mL) subcutaneous pen (Lantus Solostar U-100 Insulin) semaglutide 1 mg/dose (4 mg/3 mL) 1 mg SUBCUT Q7D 11/14/23 04/02/25 subcutaneous pen injector (Ozempic) terazosin 1 mg capsule 1 mg PO BEDTIME 11/14/23 04/02/25 diclofenac sodium 50 mg 50 mg PO BID 10/20/24 04/02/25 tablet,delayed release Previous Rx's ?Medication ?Instructions ?Recorded mupirocin 2 % topical ointment 1 applic topical TID 7 days #22 09/25/24 (Centany) grams prednisone 20 mg tablet 20 mg PO DAILY #5 tabs 02/09/25 triamcinolone acetonide 0.1 % 1 applic topical BID PRN rash 2 02/09/25 topical ointment weeks #30 grams sulfamethoxazole 800 1 tab PO BID 10 days #20 tabs 04/02/25 mg-trimethoprim 160 mg tablet (Bactrim DS) cephalexin 500 mg capsule 500 mg PO TID 10 days #30 caps 04/04/25 doxycycline monohydrate 100 mg 100 mg PO BID 10 days #20 caps 04/04/25 capsule hydrocodone 5 mg-acetaminophen 325 1 tab PO Q6H PRN pain #7 tabs 04/05/25 mg tablet Allergies Allergy/AdvReac Type Severity Reaction Status Date / Time atorvastatin (From Lipitor) Allergy ADR-Muscle Verified 04/04/25 10:18 Pain Review of Systems Const: Denies: fever(s) or chills Card: Denies: chest pain Resp: Denies: dyspnea GI: Denies: abdominal pain : Denies: dysuria, urinary frequency or urinary urgency Musc: Denies: neck pain or back pain Skin/Breast: Denies: rash PFSH ED PFSH: Medical History Diabetes Social History Smoking and tobacco/nicotine status: former use of tobacco/nicotine Physical Exam Const: GENERAL APPEARANCE: cooperative ORIENTATION/CONSCIOUSNESS: Yes awake, Yes oriented to person, Yes oriented to place and Yes oriented to time HENMT: COMMON NORMALS: normocephalic, atraumatic and hearing grossly normal bilaterally HEAD & SCALP: normocephalic and atraumatic Resp: COMMON NORMALS: normal respiratory effort, No retractions, No use of accessory muscles and clear to auscultation bilaterally AUSCULTATION: clear to auscultation bilaterally Cardio: COMMON NORMALS: regular rate, regular rhythm and No murmurs present (Cardio) RATE: regular rate RHYTHM: regular rhythm GI: COMMON NORMALS: Soft to palpation and No hepatosplenomegaly present AUSCULTATION: Yes normoactive bowel sounds PALPATION: Yes Soft to palpation, No Tenderness to palpation present (GI), No Guarding due to palpation present (GI) and Yes No hepatosplenomegaly present Extremity: OTHER: Right fifth finger red and inflamed localized to the finger no lymphatic streaking no epitrochlear nodes no fluctuant areas on palpation Neuro: SENSORIUM/ORIENTATION: Yes oriented to person, Yes oriented to place and Yes oriented to time Skin: COMMON NORMALS: no rashes or lesions noted GENERAL SKIN EXAM: no rashes or lesions noted Course Vital Signs: Vital signs: Vital Signs Temperature 98.0 F 04/05/25 15:00 Pulse Rate 97 04/05/25 15:00 Respiratory Rate 18 04/05/25 15:00 Blood Pressure 146/94 04/05/25 15:00 Pulse Oximetry 99 04/05/25 15:00 Oxygen Delivery Me thod Room Air 04/05/25 15:00 MDM - Skin/Abscess/Foreign Bdy Medicial Decision Making Patient does have an obvious cellulitis. There is no abscess on the CT there is a phlegmon. Is not draining at this time and when I palpated there is nothing fluctuant. I do think he may need to have it opened up and washed out better. We did give him a dose of vancomycin here we will get him into see orthopedics tomorrow. His white count at this time is normal. Reviewed the findings with him. Lab Data 04/05/25 15:30 Radiology Impressions Finger X-Ray 04/05/25 15:08 IMPRESSION: Soft tissue swelling about the 5th proximal interphalangeal joint of uncertain etiology, MRI and/or ultrasound could further evaluate the soft tissues. Negative for bony abnormality seen to suggest bony infection. If concern for joint infection exists consider fluid sampling. Hand CT 04/05/25 15:43 IMPRESSION: Subcutaneous edema seen about the 5th proximal interphalangeal joint, largely in the dorsal region, negative for underlying bony abnormality. Finding may reflect an infectious process such as a cellulitis and/or early phlegmon. If concern for joint space infection exists, consider tissue/fluid sampling. Laboratory Results WBC 9.49 10^3/uL (3.29-11.43) 04/05/25 15: RBC 4.57 10^6/uL (3.85-5.65) 04/05/25 15:30 Hgb 13.20 g/dL (11.27-16.99) 04/05/25 15:30 Hct 40.5 % (37-53) 04/05/25 15: MCV 88.6 fl (82-101) 04/05/25 15:30 MCH 28.9 pg (27-33) 04/05/25 15: MCHC 32.6 g/dL (30-55) 04/05/25 15: RDW 13.5 % (12.1-15.1) 04/05/25 15: Plt Count 196 10^3/cmm (157-399) 04/05/25 15: MPV 10.8 fL (7.4-10.4) H 04/05/25 15:30 Neut % (Auto) 60.1 % 04/05/25 15:30 Lymph % (Auto) 26.7 % 04/05/25 15:30 Knott % (Auto) 8.7 % 04/05/25 15:30 Eos % (Auto) 3.8 % 04/05/25 15: Baso % (Auto) 0.4 % 04/05/25 15:30 Neut # (Auto) 5.70 10^3/uL (1.8-7.7) 04/05/25 15:30 Lymph # (Auto) 2.5 10^3/uL (0.8-4.8) 04/05/25 15:30 Knott # (Auto) 0.8 10^3/uL (0.2-0.9) 04/05/25 15:30 Eos # (Auto) 0.4 10^3/uL (0.0-0.8) 04/05/25 15:30 Baso # (Auto) 0.0 10^3/uL (0.0-0.1) 04/05/25 15:30 Nucleated RBC % (auto) 0 % 04/05/25 15: Nucleated RBCs # 0.0 /100WBC 04/05/25 15:30 All radiology interpretation(s) finalized by discharge Discharge Plan Discharge Patient Disposition: Home Clinical Impression: Cellulitis Condition: Stable Prescriptions: New hydrocodone-acetaminophen 5-325 mg tablet 1 tab PO Q6H PRN (Reason: pain) Qty: 7 0RF No Action rosuvastatin [Crestor] 40 mg tablet 40 mg PO QPM mupirocin [Centany] 2 % ointment 1 applic topical TID 7 Days Qty: 22 0RF prednisone 20 mg tablet 20 mg PO DAILY Qty: 5 0RF triamcinolone acetonide 0.1 % ointment 1 applic topical BID PRN (Reason: rash) 14 Days Qty: 30 2RF sulfamethoxazole-trimethoprim [Bactrim DS] 800-160 mg tablet 1 tab PO BID 10 Days Qty: 20 0RF diclofenac sodium 50 mg tablet,delayed release (DR/EC) 50 mg PO BID cetirizine [Zyrtec] 10 mg Tablet 10 mg PO DAILY omeprazole 40 mg Capsule,Delayed Release(Dr/Ec) 40 mg PO DAILY metformin 1,000 mg Tablet 1,000 mg PO BID lisinopril 10 mg Tablet 10 mg PO DAILY metoprolol tartrate 50 mg Tablet 50 mg PO BID duloxetine [Cymbalta] 60 mg Capsule,Delayed Release(Dr/Ec) 120 mg PO BEDTIME gabapentin 400 mg capsule 400 mg PO TID gabapentin 800 mg tablet 800 mg PO TID hydrochlorothiazide 12.5 mg tablet 12.5 mg PO DAILY cyclobenzaprine 10 mg tablet 5 - 10 mg PO TID PRN (Reason: Muscle Spasm) terazosin 1 mg capsule 1 mg PO BEDTIME insulin aspart U-100 100 unit/mL (3 mL) insulin pen See Rx Instructions .ROUTE .COMPLEX Rx Instructions: NJECT 10 TO 30 UNITS THREE TIMES DAILY SUB-Q WITH MEALS, ADJUST BASED ON SLIDING SCALE, MAX DAILY DOSAGE OF 90 UNITS. Lantus Solostar U-100 Insulin 100 unit/mL (3 mL) insulin pen 40 unit SUBCUT BID Ozempic 1 mg/dose (4 mg/3 mL) pen injector 1 mg SUBCUT Q7D Rx Instructions: ON FRIDAYS cephalexin 500 mg capsule 500 mg PO TID 10 Days Qty: 30 0RF doxycycline monohydrate 100 mg capsule 100 mg PO BID 10 Days Qty: 20 0RF Discharge Orders: Discharge ED (Routine); Ordered 04/05/25 Ordered By: Sterling Cruz Referrals: Jamie Arroyo [Primary Care Provider, Family Practice] Discharge Diet: Usual diet Discharge Activity: Limit activity as instructed Patient Instructions: Opioid Safety, Pain Management, Patient Portal & [place]vin Instructions Activity Restrictions/Additional Instructions: Thank you for choosing [facility] for your healthcare needs today. It is very important that you follow up as instructed or that you return to the Emergency Department should you have concerns or if your condition changes or worsens in any way. Emergency department visits are focused on emergent conditions, in some cases you may require further evaluation on an outpatient basis. You are seen in the emergency room with concerns of an infection in your finger. CT did not show any abscess but there is signs of cellulitis your white count is not significantly elevated you were given another dose of vancomycin here will make arrangements for orthopedics to see you tomorrow to see if they wish to do a washout of the joint. (Please note that included in your discharge packet is information concerning opioid safety and pain management. This information is given to all patients were discharged from the ER regardless of their discharge diagnosis or the medicines they usually take or are prescribed.) Print Language: Senegalese Coding Level of Care Code ED Hall Coordinator for Wendy Weeks
[2025-04-05 15:41] LABS: Hematocrit 40.5 % (37-53); Hemoglobin 13.20 g/dL (11.27-16.99); Mean Corpuscular HGB Conc 32.6 g/dL (30-55); Mean Corpuscular Hemoglobin 28.9 pg (27-33); Mean Corpuscular Volume 88.6 fl (82-101); Nucleated Red Blood Cells % 0 %; Platelet Count 196 10^3/cmm (157-399); Red Blood Count 4.57 10^6/uL (3.85-5.65); White Blood Count 9.49 10^3/uL (3.29-11.43)
--- NOTE | 2025-04-05 15:43 | CTR_ITS ---
PROCEDURE INFORMATION: Exam: CT Right Upper Extremity With Contrast, Hand Exam date and time: 04/05/2025 4:28 PM Age: 49 years old Clinical indication: Swelling; Fingers; Right; Additional info: Right fifth finger infection TECHNIQUE: Imaging protocol: Computed tomography of the right upper extremity with contrast. Exam focused on the hand. Radiation optimization: All CT scans at this facility use at least one of these dose optimization techniques: automated exposure control; mA and/or kV adjustment per patient size (includes targeted exams where dose is matched to clinical indication); or iterative reconstruction. Contrast material: OMNI 350; Contrast volume: 100 ml; Contrast route: INTRAVENOUS (IV); COMPARISON: CR (UP EXM, ) 04/05/2025 3:22 PM RADIATION DOSE METRICS: Total DLP (mGy-cm): 128.08 FINDINGS: Bones/joints: Subcutaneous edema seen about the 5th proximal interphalangeal joint, largely in the dorsal region, negative for underlying bony abnormality. Finding may reflect an infectious process such as a cellulitis and/or early phlegmon. If concern for joint space infection exists, consider tissue/fluid sampling. Soft tissues: See Bones/joints finding. CT/CT hand RT w con [id number] IMPRESSION: Subcutaneous edema seen about the 5th proximal interphalangeal joint, largely in the dorsal region, negative for underlying bony abnormality. Finding may reflect an infectious process such as a cellulitis and/or early phlegmon. If concern for joint space infection exists, consider tissue/fluid sampling.
[2025-04-05] MEDS: iohexol 350 mg/mL 500 mL Btl (per mL) IV (16:30)
[2025-04-05] MEDS: HYDROcodone-acetaminophen 5-325 mg Tablet 1 TAB PO (17:50)
[2025-04-05 18:00] VITALS: BP 132/92; PULSE 90; O2SAT 98
--- NOTE | 2025-04-06 07:36 | DCPLANNER ---
messaged ortho for er f/u
== END 2025-04-05 18:00 | disposition home or self-care (01) ==
PROVIDERS: Emergency Provider Family Medicine; PCP Family Medicine
DX: L03.011 Cellulitis of right finger (principal); Z79.4 Long term (current) use of insulin; Z79.84 Long term (current) use of oral hypoglycemic drugs; Z87.891 Personal history of nicotine dependence
CPT/HCPCS: 73140; 73201; 85025; 87040; 96365; 99285; J3373; J7050; J9999

== ENCOUNTER → 2025-05-12 09:51 | Outpatient (BNVA) | payer MEDICAID, SELFPAY | PROVIDERS: PCP Family Medicine; Visit Provider Podiatrist Foot & Ankle Surgery | DX: E11.8 Type 2 diabetes mellitus with unspecified complications (principal); L60.3 Nail dystrophy; G62.9 Polyneuropathy, unspecified; L03.90 Cellulitis, unspecified; E11.42 Type 2 diabetes mellitus with diabetic polyneuropathy; Z79.4 Long term (current) use of insulin; Z79.84 Long term (current) use of oral hypoglycemic drugs; Z79.85 Long-term (current) use of injectable non-insulin antidiabetic drugs | CPT/HCPCS: 99213 ==